=== PATIENT | female | born 1975 | race Caucasian/White ===

== ENCOUNTER → 2023-01-12 14:30 | Outpatient (CLI) | payer MEDICARE, SELFPAY ==
--- NOTE | 2023-01-12 14:32 | DI.RAD.S_ITS ---
PROCEDURE: XR KUB INDICATIONS: Kidney stones TECHNIQUE: One view of the abdomen acquired. COMPARISON: [facility], [facility], US PELVIC COMPLETE, 12/30/2020, 14:33. FINDINGS: Surgical changes and devices: None. Bowel: Bowel gas pattern is normal. Soft tissues: A 1.4 x 1.9 cm calcific density in the left mid abdomen projecting to the area of L4 the left transverse process, just below the inferior pole of the left kidney. Visualized solid organ contours appear normal in size. Bones: No suspicious bony lesions. IMPRESSION: 1. A 1.4 x 1.8 cm calcific density in left abdomen, suspicious for a proximal left ureteral stone. Recommend renal ultrasound or CT for further evaluation. Dictated by: Sophia Alexandre M.D. on 01/12/2023 at 19:11 Approved by: Sophia Alexandre M.D. on 01/12/2023 at 19:16
== END ==
PROVIDERS: Referring Provider Urology; Visit Provider Urology
DX: N20.0 Calculus of kidney (principal); N13.30 Unspecified hydronephrosis; Z87.442 Personal history of urinary calculi; Z85.42 Personal history of malignant neoplasm of other parts of uterus
CPT/HCPCS: 74018; 81002; 99213

== ENCOUNTER 2023-01-31 06:39 | Day surgery (SDC) | payer MEDICARE, SELFPAY ==
[2023-01-27 10:01] VITALS: BMI 23.7
[2023-01-31 06:56] VITALS: BP 161/89; PULSE 82; RESP 19; TEMP 36.6; O2SAT 100; BMI 23.7
[2023-01-31] MEDS: LACTATED RINGERS 1,000 ML 21 ML IV (07:13)
--- NOTE | 2023-01-31 07:35 | PM.PREOP ---
Pre-operative Note COVID-19 COVID-19 status: Not tested Criteria for continued procedure: Delay expected to result in less-positive ultimate med/surg outcome and Non-surgical alternatives not available or appropriate per current SOC Interval Note History & Physical reviewed/Exam performed by Physician: Yes Changes to H&P: No
[2023-01-31] MEDS: CEFAZOLIN 2 GM/100 ML PREMIX 100 ML IV (07:54)
--- NOTE | 2023-01-31 08:04 | SUR.OPER ---
Addendum entered by Ethel Proctor R.N. 01/31/23 08:25: For ESWL, patient placed into supine position with padded wedge underneath knees. Head on pillow, arms padded with gel pads and tucked at sides. Original Note: Lithotomy on ESWL table, head on pillow, arms padded with gel pads and tucked at sides. Legs secured in padded black ESWL stirrups.
[2023-01-31 09:02] VITALS: BP 142/81; PULSE 77; RESP 14; TEMP 36.1; O2SAT 98
--- NOTE | 2023-01-31 09:03 | P.OP_ITS ---
Procedure & Clinicians Procedure: Left extracorporeal shockwave lithotripsy and cystoscopy with left ureteral stent placement. Same procedure as scheduled: Yes Indications: This 47-year-old female was found to have a large calculus in the left renal pelvis. She presents this time for treatment. She also had hydronephrosis and given the size of the stone against stent will be placed as noted above. Surgeon: Naren Walker Click Yes if Unassisted: Yes Anesthesia Type: General Operative Notes Findings: Findings: At cystoscopy external genitalia were normal the vaginal vault was well estrogenized the urethral meatus was normal urethra is normal along its length with normal mucosa. The right and left ureteral orifice were in normal position with clear efflux. The mucosa of the bladder was normal. The trigone was well estrogenized. The stone was in the UPJ/renal pelvis. And received a total of 2100 shocks at level 8 resulting in what appeared to be excellent fragmentation. A 7 Slovenian by multi length stent was left in place without a string. Closure Type: not applicable Specimen(s): none sent Prosthetic devices, grafts, tissues, transplants, or devices: Seven Slovenian by multi length stent left in the left collecting system without a string. Blood products transfused: none Procedure in detail: Procedure in detail: After informed consent was obtained, the patient was identified and brought to the operating room where she was placed in a supine position on the Lithotripter. Patient had anesthesia induced and maintained. Showing an adequate level of anesthesia the patient was transitioned to the lithotomy position where she was prepped, draped, prepared for Transurethral procedure. Ensuring an adequate level of anesthesia and after prepping, draping, time-out cystoscope was passed through the urethra into the bladder for cystoscopy was performed. The left ureteral orifice was identified and a guidewire passed up to the level of the stone. Did not want to go past the stone so Sloan catheter was inserted and again an attempt was made to pass the stone this met with resistance. Therefore a 0.035 glidewire was passed through the Parker catheter and manipulated up and pass the stone the Parker was then passed alongside the stone into the renal pelvis. The Glidewire was removed and there was efflux of clear yellow urine the hybrid guidewire was then passed up through the Parker it left in place in the renal pelvis having the Sloan catheter removed. The stent was then passed in a coaxial fashion over the wire positioned in the renal pelvis under fluoroscopic visualization in the bladder under direct vision. The nylon harness was removed stent was left in good position the bladder was drained the scope was removed. The patient was returned to the supine position on the Lithotripter and the stone positioned at if 1 via the imaging system shockwave delivered at level 8 for a total of 2100 shocks. There was periodic reimaging and re localization of the stone and its fragments to ensure maximal energy delivered to the stone and fragmentation. At 9:00 p.m. shocks the shockwave head was rotated out fluoroscopy performed and the stone did appear to be well well fragmented. At this point the patient was awakened taken to the postanesthesia care unit having tolerated the procedure well patient will be discharged to home after recovery straining her urine saving any fragments to follow up my office in approximately 10-14 days. She will bring any fragments that she has collected to follow-up. There were no complications. Complications: none Post-operative Condition: stable Disposition: PACU Plan for aftercare: Patient to be discharged to home straining her urine saving any fragments.
[2023-01-31 09:07] VITALS: BP 136/89; PULSE 81; RESP 12; O2SAT 99
[2023-01-31 09:13] VITALS: BP 136/76; PULSE 83; RESP 16; TEMP 36.4; O2SAT 98
[2023-01-31] MEDS: SCOPOLAMINE 1 PATCH TOP (09:24)
[2023-01-31] MEDS: PHENAZOPYRIDINE 100 MG TABLET 200 MG PO (09:25)
[2023-01-31] MEDS: OXYBUTYNIN 5 MG TABLET PO (09:25)
[2023-01-31 09:28] VITALS: BP 140/85; PULSE 73; RESP 16; TEMP 36.4; O2SAT 98
== END 2023-01-31 09:54 | disposition home or self-care (01) ==
PROVIDERS: Referring Provider Urology; Visit Provider Urology
PROC: (CPT 50590; principal; 2023-01-31 07:45)
DX: N20.0 Calculus of kidney (principal)
CPT/HCPCS: 50590; 52332; J0690; J1100; J2250; J2405; J2704; J3010

== ENCOUNTER → 2023-02-09 12:44 | Outpatient (CLI) | payer MEDICARE, SELFPAY ==
--- NOTE | 2023-02-09 12:47 | DI.RAD.S_ITS ---
PROCEDURE: XR KUB INDICATIONS: Follow-up lithotripsy TECHNIQUE: One view of the abdomen acquired. COMPARISON: WLeft in place. double-J stent [facility], RG, CT ABDOMEN/PELVIS WITH CONTRAS. T, 08/15/2022, 20:11[facility], CR, XR KUB, 01/12/2023, 14:43. FINDINGS: Surgical changes and devices: Interval placement of a left double-J stent Bowel: Bowel gas pattern is normal. Soft tissues: No suspicious abdominal calcifications. Visualized solid organ contours appear normal in size. Most of the left renal pelvic stone has been removed. There is small residual stone fragment remaining. Bones: No suspicious bony lesions. IMPRESSION: Significant interval decrease in the size of the left renal pelvic stone. Left double-J ureteral stent in place. Dictated by: Ion Grimm M.D. on 02/09/2023 at 14:12 Approved by: Ion Grimm M.D. on 02/09/2023 at 14:14
== END ==
PROVIDERS: Referring Provider Urology; Visit Provider Urology
DX: N20.0 Calculus of kidney (principal); Z96.0 Presence of urogenital implants
CPT/HCPCS: 74018

== ENCOUNTER → 2023-02-10 11:48 | Outpatient (CLI) | payer MEDICARE, SELFPAY ==
[2023-02-15 18:39] LABS: Ca oxalate dihydrate 10 % (.); Ca oxalate monohydr 80 % (.); Hydroxyapatite 10 % (.); Size 2x2 mm (.)
== END ==
PROVIDERS: Visit Provider Urology
DX: N13.30 Unspecified hydronephrosis (principal); N20.0 Calculus of kidney
CPT/HCPCS: 82365

== ENCOUNTER → 2023-02-21 14:03 | Outpatient (CLI) | payer MEDICARE, SELFPAY ==
--- NOTE | 2023-02-21 14:06 | DI.RAD.S_ITS ---
PROCEDURE: XR KUB INDICATIONS: Follow-up kidney stones TECHNIQUE: One view of the abdomen acquired. COMPARISON: [facility], CR, XR KUB, 02/09/2023, 12:43. FINDINGS: Surgical changes and devices: Stable left ureteral stent. Bowel: Bowel gas pattern is normal. Soft tissues: Small 4 millimeter calcific density noted adjacent to the lateral and distal margin of the left ureteral stent concerning for residual stone. Visualized solid organ contours appear normal in size. Bones: No suspicious bony lesions. IMPRESSION: Possible 4 millimeter stone in the distal left ureter. Dictated by: Honey Reyes MD, PhD on 02/21/2023 at 15:03 Approved by: Honey Reyes MD, PhD on 02/21/2023 at 15:05
== END ==
PROVIDERS: Referring Provider Urology; Visit Provider Urology
DX: N20.0 Calculus of kidney (principal); Z96.0 Presence of urogenital implants
CPT/HCPCS: 74018

== ENCOUNTER → 2023-03-01 11:14 | Outpatient (CLI) | payer MEDICARE, SELFPAY ==
[2023-03-06 22:39] LABS: Ca oxalate dihydrate 30 % (.); Ca oxalate monohydr 65 % (.); Hydroxyapatite 5 % (.); Size 3x3 mm (.)
== END ==
PROVIDERS: Visit Provider Urology
DX: N13.30 Unspecified hydronephrosis (principal); N20.0 Calculus of kidney; Z98.890 Other specified postprocedural states; Z87.442 Personal history of urinary calculi; Z96.0 Presence of urogenital implants
CPT/HCPCS: 81002; 82365; 87086; 99213

== ENCOUNTER → 2023-03-04 10:35 | Outpatient (CLI) | payer MEDICARE, SELFPAY ==
--- NOTE | 2023-03-04 10:36 | DI.CT.S_ITS ---
PROCEDURE: CT ABDOMEN WO CON INDICATIONS: Kidney stone TECHNIQUE: After the administration of oral contrast, 5 mm thick sections acquired from the diaphragms to the iliac crests. 5 mm coronal and sagittal reformats were then performed. For radiation dose reduction, the following was used: automated exposure control, adjustment of mA and/or kV according to patient size. COMPARISON: [facility], CR, XR KUB, 02/09/2023, 12:43. [facility], RG, CT ABDOMEN/PELVIS WITH CONTRAST, 08/15/2022, 20:11. [facility], CR, XR KUB, 02/21/2023, 14:12. FINDINGS: Image quality: Excellent. Lung bases: Lung bases are clear. Heart size is normal. Solid organs: Liver is normal in size. Gallbladder is normal . Pancreas is normal in contours. Spleen is normal in size. No adrenal nodules. A 6 millimeter stone is present medially adjacent to the renal pigtail of the ureteral stent. This appears similar to the prior x-ray. The stone described on the KUB possibly in the distal ureter lies adjacent to but not within the ureter and is a pelvic phlebolith. Peritoneum and bowel: Bowel loops demonstrate normal wall thickness and caliber. No free fluid or air. Nodes and vessels: No retroperitoneal or mesenteric adenopathy by size criteria. Aorta and inferior vena cava are normal in size. Bones: No suspicious bony lesions. No vertebral body compression fractures. Miscellaneous: No ventral hernias. IMPRESSION: 1. Possible stone described on are KUB is a pelvic phlebolith. 2. Residual 6 millimeter stone in the kidney adjacent to the renal portion of the ureteral stent. Dictated by: Shubham Holden M.D. on 03/04/2023 at 21:42 Approved by: Shubham Holden M.D. on 03/04/2023 at 21:52
== END ==
PROVIDERS: Referring Provider Urology; Visit Provider Urology
DX: N20.0 Calculus of kidney (principal); Z96.0 Presence of urogenital implants
CPT/HCPCS: 74150

== ENCOUNTER → 2023-03-21 18:17 | Outpatient (CLI) | payer MEDICARE, SELFPAY ==
--- NOTE | 2023-03-21 18:21 | DI.RAD.S_ITS ---
PROCEDURE: XR KUB INDICATIONS: Follow-up kidney stone TECHNIQUE: One view of the abdomen acquired. COMPARISON: [facility], CT, CT ABDOMEN WO CON, 03/04/2023, 10:56. [facility], CR, XR KUB, 02/21/2023, 14:12. [facility], CR, XR KUB, 02/09/2023, 12:43. FINDINGS: Surgical changes and devices: Left ureteral stent in place. Bowel: Bowel gas pattern is normal. Soft tissues: Again seen calcification adjacent to the proximal portion of the left ureteral stent, consistent with the stone seen on prior CT and similar in size. Calcifications projecting over the pelvis are favored to represent phleboliths. Visualized solid organ contours appear normal in size. Bones: No suspicious bony lesions. IMPRESSION: Left ureteral stent in place with stone seen at the proximal portion near the expected location of the renal pelvis, similar in appearance compared to prior CT. Dictated by: Silas Gomez M.D. on 03/22/2023 at 8:23 Approved by: Silas Gomez M.D. on 03/22/2023 at 8:26
== END ==
PROVIDERS: Referring Provider Urology; Visit Provider Urology
DX: N20.0 Calculus of kidney (principal); Z96.0 Presence of urogenital implants
CPT/HCPCS: 74018

== ENCOUNTER → 2023-03-23 08:10 | Outpatient (CLI) | payer MEDICARE, SELFPAY | PROVIDERS: Visit Provider Urology | DX: N13.30 Unspecified hydronephrosis (principal); N20.0 Calculus of kidney; R31.9 Hematuria, unspecified; R30.0 Dysuria; Z96.0 Presence of urogenital implants | CPT/HCPCS: 81002; 87086; 99214 ==

== ENCOUNTER 2023-04-04 06:25 | Day surgery (SDC) | payer MEDICARE, SELFPAY ==
[2023-03-29 09:48] VITALS: BMI 24.3
[2023-04-04] VITALS (7 sets, daily range): BP systolic 113–153; BP diastolic 72–109; PULSE 64–86; RESP 12–16; TEMP 35.8–36.1; O2SAT 95–100; BMI 24.3
[2023-04-04] MEDS: SCOPOLAMINE 1 PATCH TOP (07:29)
--- NOTE | 2023-04-04 07:32 | PM.PREOP ---
Pre-operative Note COVID-19 COVID-19 status: Not tested Criteria for continued procedure: Non-surgical alternatives not available or appropriate per current SOC Interval Note History & Physical reviewed/Exam performed by Physician: Yes Changes to H&P: No
[2023-04-04] MEDS: CEFAZOLIN 2 GM/100 ML PREMIX 100 ML IV (07:55)
--- NOTE | 2023-04-04 08:01 | SUR.OPER ---
Supine on ESWL table, head on pillow, arms padded with gel pads, legs uncrossed.
--- NOTE | 2023-04-04 08:35 | PM.OP.1 ---
Procedure & Clinicians Procedure: Left extracorporeal shockwave lithotripsy Same procedure as scheduled: Yes Indications: This 47-year-old female presented with a large stone which was treated by extracorporeal shockwave lithotripsy. She passed 90% of the fragments and came down to approximately 6-7 mm core which has failed to pass and does not appear broken up so she presents this time for treatment of this residual stone by extracorporeal shockwave lithotripsy. This is on the patient's left side Surgeon: Naren Walker Click Yes if Unassisted: Yes Anesthesia Type: General Operative Notes Findings: Stone is noted in the renal pelvis. It received 3000 shocks at level 7 and did appear to change. Getting smaller and somewhat more spread out. No other abnormality or notable finding was present. Closure Type: not applicable Specimen(s): none sent Estimated Blood Loss (mL): 0 Blood products transfused: none Procedure in detail: Procedure in detail: After informed consent was obtained, the patient was identified and brought to the operating room where she was placed in the supine position on the Lithotripter. She then had anesthesia induced and maintained. Ensuring an adequate level of anesthesia and after time-out the stone was targeted via the imaging system and once appropriately targeted received shock waves up to level 7. There was periodic reimaging and re localization to sure maximal energy delivery to the stone. Patient received 3000 shocks. At 3000 shocks the shockwave head was rotated out and fluoroscopy was performed. This revealed the stone to have changed and smudged out and did appear fragmented. At this point the patient was awakened having tolerated the procedure well to be transferred to the post anesthesia care unit for recovery. There were no complications Complications: none Post-operative Condition: stable Disposition: PACU Plan for aftercare: Patient to follow up in my office in 10-14 days patient is to strain her urine and save any fragments and bring to follow-up. Imaging will be determined at that time to ascertain progress of passage of the stone and stone fragments.
[2023-04-04] MEDS: ACETAMINOPHEN 325 MG TABLET 650 MG PO (08:59)
[2023-04-04] MEDS: ONDANSETRON 4 MG/2 ML INJ IV (08:59)
[2023-04-04] MEDS: LACTATED RINGERS 1,000 ML 21 ML IV ×2 (09:21→09:22)
--- NOTE | 2023-04-04 09:24 | SUR.PHASEII ---
Patient continues to have nausea but no emesis. Notified anesthesiologist of continued nausea. Verbal orders for additional liter of Lactated ringers and Reglan 10 mg IV.
[2023-04-04] MEDS: METOCLOPRAMIDE 10 MG/2 ML INJ IV (09:30)
--- NOTE | 2023-04-04 09:47 | SUR.PHASEII ---
Patient ambulatory to bathroom with no nausea; states she is feeling Much better. Discharged home in stable condition with father.
== END 2023-04-04 09:47 | disposition home or self-care (01) ==
PROVIDERS: Referring Provider Urology; Visit Provider Urology
PROC: (CPT 50590; principal; 2023-04-04 07:45)
DX: N20.0 Calculus of kidney (principal)
CPT/HCPCS: 50590; J0690; J1100; J2405; J2704; J2765

== ENCOUNTER 2023-04-14 07:48 | Inpatient (IN) | payer MEDICARE, SELFPAY ==
[2023-04-14] VITALS (70 sets, daily range): BP systolic 96–185; BP diastolic 55–119; PULSE 49–123; RESP 10–42; TEMP 36.5–37.2; O2SAT 91–100; BMI 24.7; BMI 26.9
--- NOTE | 2023-04-14 | PATH_ITS ---
[facility] Accession Number: [id number] No. of containers..01 Tissue . 01 Material submitted: . ovary - LEFT OVARY . 01 Diagnosis: A. Left Ovary, Oophorectomy: Ovarian parenchyma in association with hemorrhagic corpus luteal cyst(s) and extensive hemorrhage/infarct-type necrosis, consistent with torsion. No evidence of borderline tumor or malignancy. MRV 04/27/2023 1233 Local . 01 Electronically signed: . Lashae Hernandez MD, Pathologist NPI- [id number] . 01 Gross description: . The specimen is received in formalin labeled with the patient's name, , and left ovary consists of a dark brown, nodular, roughened presumed ovary weighing 30 grams and measuring 5.7 x 5.2 x 2.4 cm. The external surface is inked blue and sectioning reveals diffusely hemorrhagic ovarian parenchyma with several pink to red structures consistent with possible luteal cysts measuring up to 1.8 cm in greatest dimension. No additional lesions are identified. [employer] sections are submitted in cassettes [id number]. ([id number]) /MRV 04/27/2023 1233 Local . 01 Pathologist provided ICD-10: N83.12 . 01 CPT . 525726 Specimen Comment: A courtesy copy of this report has been sent to [phone] Performed at: 01 [facility] [address] [place] [address], [place], [place] [id number] MD Tree Unger MD Phone: [phone]
--- NOTE | 2023-04-14 07:58 | DI.CT.S_ITS ---
PROCEDURE: CT KIDNEY URETER BLADDER (KUB) INDICATIONS: left abd/flank pain, ureteral stent 04/04 lithotripsy TECHNIQUE: Axial sections were acquired from the lung bases to the pubic symphysis. Coronal and sagittal reformats were performed. For radiation dose reduction, the following was used: automated exposure control, adjustment of mA and/or kV according to patient size. COMPARISON: [facility], CT, CT ABDOMEN PELVIS WO CON, 03/04/2023, 10:56. FINDINGS: Image quality: Excellent. Lung bases: Trace right pleural effusion.. Heart: No significant findings. URINARY: Right Kidney: No stones or hydronephrosis. Right Ureter: No hydroureter. Left Kidney: Stable severe hydronephrosis. Nephroureteral stent terminates in the extrarenal pelvis and bladder. Left Ureter: Stable severe hydroureter Bladder: Normal wall thickness. No stones. ABDOMEN: Liver: Unremarkable. Gallbladder: Unremarkable. Biliary ducts: Unremarkable. Pancreas: Unremarkable. Spleen: Unremarkable. Adrenal Glands: Unremarkable. Stomach and Bowel: Stomach, small bowel loops, and colon are unremarkable. Peritoneum: Moderate amount of free fluid in the pelvis, greater than expected for physiologic. Ventral Wall: Small umbilical hernia containing. Abdominal Nodes: No enlarged retroperitoneal or mesenteric lymph nodes. Vessels: Aorta and inferior vena cava are normal in size. PELVIS: Pelvic Organs: Unremarkable. Pelvic Nodes: Unremarkable. Miscellaneous: No inguinal hernias are seen. Bones: Unremarkable. IMPRESSION: Moderate amount of free fluid in the pelvis of unclear etiology. This has increased compared with prior. Ureter injury not entirely excluded, although not likely as the fluid is within the peritoneum and not retroperitoneum. Ruptured ovarian cyst is also consideration. Appropriately positioned nephroureteral stent, with persistent severe hydronephrosis and hydroureter. Dictated by: Migue Moody M.D. on 04/14/2023 at 9:26 Approved by: Migue Moody M.D. on 04/14/2023 at 9:32
--- NOTE | 2023-04-14 08:00 | ED_ITS ---
HPI - Abdominal Pain General Chief Complaint: Abdominal Pain Stated Complaint: post op stent /V/ pain/bleeding Time Seen by Provider: 04/14/23 07:58 Source: patient, RN notes reviewed and old records reviewed Mode of arrival: Wheelchair Limitations: no limitations History of Present Illness HPI narrative: This is a 47-year-old female with history of recent ureteral stent placed in February of 2023 and follow-up lithotripsy on 04/04/2023, patient has had prior kidney stones, chronic back pain, fibromyalgia, endometriosis who presents with sudden increase of left flank and lower quadrant abdominal pain that woke her up from sleep this morning. Patient states she has not had any objective fevers but has been diaphoretic intermittently. Patient states pain is much more intense than what she normally gets with her kidney stones. She is had nausea and vomiting. She states she is had intermittent diarrhea and constipation but is stooling regularly. Denies any black or bloody stools. She says dysuria, urgency frequency and a sense of incomplete emptying since she had the stent placed in February. Patient denies vaginal bleeding or discharge. She states she tried Tylenol at home for pain. Patient states no other daily medications. No prior surgeries otherwise. She states she does not handle narcotics well in terms allergies and has a reported allergy to sulfa. Denies tobacco, alcohol or illicit. She is seen Dr. Walker as her urologist. Related Data Previous Rx's Medication Instructions Recorded lisinopril 20 mg tablet 20 mg PO DAILY #10 tabs 04/18/23 naproxen 250 mg tablet 500 mg PO BIDWM #20 tabs 04/18/23 vitamin 1 tab PO DAILY #30 tabs 04/18/23 no.76-iron,carbonyl 29 mg iron-folic acid 1 mg tablet (Prenatabs Rx) fentanyl 25 mcg/hr transdermal 1 patch transdermal Q72H #1 ea 04/19/23 patch hydromorphone 2 mg tablet 2 mg PO Q4HR PRN Pain, Severe 04/19/23 (7-10) #20 tabs ondansetron 4 mg disintegrating 4 mg PO BID-TID PRN nausea and 04/19/23 tablet vomiting #10 tabs scopolamine base 1 mg over 3 days 1 patch transdermal Q3D PRN nausea 04/19/23 transdermal patch and vomiting #4 ea tamsulosin 0.4 mg capsule 0.8 mg PO DAILY #60 caps 04/19/23 Allergies Allergy/AdvReac Type Severity Reaction Status Date / Time Sulfa (Sulfonamide Allergy Intermediate Rash Verified 04/19/23 08:31 Antibiotics) hydrocodone [From Vicodin] Allergy Unknown Verified 04/19/23 08:31 Review of Systems Review of Systems ROS Unobtainable: All systems reviewed & are unremarkable except as noted in HPI and below Patient History Medical History (Updated 04/19/23 @ 08:49 by Naren Walker MD) Anxiety and depression (~1997) Chronic back pain (~2000) Fibromyalgia (~2011) History of depression History of kidney stones Hx of cancer of uterus Hx of migraine headaches Hx of nephrolithotomy with removal of calculi Hx of neurological disease Hydronephrosis, left Kidney stones (~2008) Left renal stone Menorrhagia (~2011) Migraine headache without aura (~1998) Painful menstrual periods (~2011) Recurrent sinusitis Restless leg syndrome (~2011) S/P extracorporeal shock wave therapy (01/31/23) Urinary retention Surgical History (Updated 04/19/23 @ 08:53 by Naren Walker MD) Anesthesia History of lithotripsy [place] teeth extracted Family History Father Prediabetes Hypertension Hyperlipidemia Grandfather Cancer Hypertension Hyperlipidemia Stroke Grandmother Cancer Hyperlipidemia Hypertension Stroke Grandmother Bladder cancer Breast cancer Social History marital status: number of children: 2 household members: children Smoking Status: Never smoker alcohol intake: never caffeine: No Type(s) of exercise: walking frequency: daily duration: > 90 minutes/day Smoking Status: Never smoker Substance Use Type: does not use Exam Narrative Exam Narrative: GENERAL: Alert and oriented x three, female in moderate distress. HEENT: Head normocephalic, atraumatic, EOMI, pupils reactive, face symmetric, moist mucous membranes NECK: Supple, full range of motion CARDIOVASCULAR: Regular rate and rhythm without murmurs, rubs or gallops. RESPIRATORY: Breath sounds equal bilaterally, no wheezes rales or rhonchi. ABDOMEN: Soft, generalized tenderness greatest in the left. Normoactive bowel sounds all 4 quadrants. No guarding or rebound, rigidity, no mass : No CVA tenderness EXTREMITIES: Normal range of motion, no clubbing or edema. Neurovascularly intact NEUROLOGICAL: Cranial nerves II through XII grossly intact. Moving all extremities SKIN: Warm, dry, no petechiae, no rashes or lesions. Initial Vital Signs Initial Vital Signs: Vital Signs Blood Pressure 169/112 H 04/14/23 07:55 Course Orders Ordered: Discontinued Medications Acetaminophen (Acetaminophen 325 Mg Tablet) 650 mg PO Q6H PRN PRN Reason: Fever/Mild Pain (1-3) Last Admin: 04/18/23 19:47 Dose: 650 mg Documented By: Admin: 04/18/23 12:59 Dose: 650 mg Documented By: Admin: 04/18/23 05:39 Dose: 650 mg Documented By: Admin: 04/17/23 22:54 Dose: 650 mg Documented By: Admin: 04/17/23 15:48 Dose: 650 mg Documented By: DAHIANA Hydrocodone Bitart/Acetaminophen (Hydrocodone/Acet 5/325 Tablet) 1 tab PO Q4H PRN PRN Reason: Pain, Moderate (4-6) Hydrocodone Bitart/Acetaminophen (Hydrocodone/Acet 5/325 Tablet) 2 tab PO Q4H PRN PRN Reason: Pain, Severe (7-10) Celecoxib (Celecoxib 200 Mg Capsule) 200 mg PO BID SHENG Ciprofloxacin (Ciprofloxacin 250 Mg Tablet) 250 mg PO 0700,2100 SHENG Ciprofloxacin (Ciprofloxacin 250 Mg Tablet) 500 mg PO 0700,2100 SHENG Last Admin: 04/19/23 07:28 Dose: 500 mg Documented By: Admin: 04/18/23 20:00 Dose: 500 mg Documented By: Admin: 04/18/23 08:27 Dose: 500 mg Documented By: Admin: 04/17/23 20:45 Dose: 500 mg Documented By: Admin: 04/17/23 07:44 Dose: 500 mg Documented By: Admin: 04/16/23 20:40 Dose: 500 mg Documented By: THEODORA Diphenhydramine HCl (Diphenhydramine 50 Mg/Ml Vial) 25 mg IV NOW ONE Stop: 04/14/23 19:26 Last Admin: 04/14/23 19:35 Dose: 25 mg Documented By: KENYON Fentanyl (Fentanyl 25 Mcg/Patch) 25 mcg TOP NOW ONE Stop: 04/18/23 12:35 Last Admin: 04/18/23 12:58 Dose: 25 mcg Documented By: RASHIDA Fentanyl (Fentanyl 25 Mcg/Patch) 25 mcg TOP NOW ONE Stop: 04/19/23 05:52 Last Admin: 04/19/23 08:23 Dose: Not Given Documented By: RASHIDA Hydromorphone HCl (Hydromorphone 1 Mg Inj) 1 mg IV NOW ONE Stop: 04/14/23 09:13 Last Admin: 04/14/23 09:20 Dose: 1 mg Documented By: Hydromorphone HCl (Hydromorphone 1 Mg Inj) 1 mg IV NOW ONE Stop: 04/14/23 11:10 Last Admin: 04/14/23 11:27 Dose: 1 mg Documented By: Hydromorphone HCl (Hydromorphone 1 Mg Inj) 1 mg IV NOW ONE Stop: 04/14/23 14:35 Last Admin: 04/14/23 14:42 Dose: 1 mg Documented By: Hydromorphone HCl (Hydromorphone 0.5 Mg Inj) 0.5 mg IV Q3H PRN PRN Reason: Pain, Moderate (4-6) Last Admin: 04/17/23 05:57 Dose: 0.5 mg Documented By: Admin: 04/16/23 11:18 Dose: 0.5 mg Documented By: Admin: 04/15/23 22:44 Dose: 0.5 mg Documented By: Admin: 04/15/23 18:51 Dose: 0.5 mg Documented By: Admin: 04/15/23 15:05 Dose: 0.5 mg Documented By: Admin: 04/15/23 11:59 Dose: 0.5 mg Documented By: Admin: 04/15/23 09:00 Dose: 0.5 mg Documented By: Admin: 04/14/23 23:41 Dose: 0.5 mg Documented By: VIOLET Hydromorphone HCl (Hydromorphone 2 Mg Tablet) 2 mg PO Q4HR PRN PRN Reason: Pain, Severe (7-10) Last Admin: 04/19/23 07:27 Dose: 2 mg Documented By: Admin: 04/19/23 04:55 Dose: 2 mg Documented By: Admin: 04/19/23 00:51 Dose: 2 mg Documented By: Admin: 04/18/23 20:55 Dose: 2 mg Documented By: Admin: 04/18/23 10:43 Dose: 2 mg Documented By: Admin: 04/18/23 05:38 Dose: 2 mg Documented By: Admin: 04/17/23 22:54 Dose: 2 mg Documented By: Admin: 04/17/23 17:45 Dose: 2 mg Documented By: Admin: 04/17/23 14:05 Dose: 2 mg Documented By: Admin: 04/16/23 08:40 Dose: 2 mg Documented By: DAHIANA Hydromorphone HCl (Hydromorphone 1 Mg Inj) 1 mg IV Q2H PRN PRN Reason: Pain, Moderate (4-6) Last Admin: 04/18/23 19:47 Dose: 1 mg Documented By: Admin: 04/17/23 20:45 Dose: 1 mg Documented By: Admin: 04/17/23 08:59 Dose: 1 mg Documented By: Admin: 04/16/23 19:56 Dose: 1 mg Documented By: Admin: 04/15/23 01:43 Dose: 1 mg Documented By: VIOLET Sodium Chloride (Normal Saline 0.9%) 1,000 mls @ 1,000 mls/hr IV BOLUS ONE Stop: 04/14/23 08:57 Last Infusion: 04/14/23 09:05 Dose: 0 mls/hr Documented By: Admin: 04/14/23 08:11 Dose: 1,000 mls/hr Documented By: ST Lidocaine HCl 5 ml/ Sodium (Chloride) 55 mls @ 330 mls/hr IV NOW ONE Stop: 04/14/23 08:35 Last Infusion: 04/14/23 09:05 Dose: 0 mls/hr Documented By: Admin: 04/14/23 08:38 Dose: 330 mls/hr Documented By: ST Sodium Chloride (Normal Saline 0.9%) 1,000 mls @ 1,000 mls/hr IV BOLUS ONE Stop: 04/14/23 10:38 Last Infusion: 04/14/23 16:28 Dose: 0 mls/hr Documented By: Admin: 04/14/23 10:17 Dose: 1,000 mls/hr Documented By: ST Ceftriaxone Sodium 2,000 mg/ (Sodium Chloride) 100 mls @ 200 mls/hr IV NOW ONE Stop: 04/14/23 10:44 Last Infusion: 04/14/23 12:26 Dose: 0 mls/hr Documented By: Admin: 04/14/23 11:27 Dose: 200 mls/hr Documented By: Sodium Chloride (Normal Saline 0.9%) 1,000 mls @ 1,000 mls/hr IV BOLUS ONE Stop: 04/14/23 18:14 Last Infusion: 04/14/23 18:45 Dose: 0 mls/hr Documented By: Admin: 04/14/23 17:37 Dose: 1,000 mls/hr Documented By: Sodium Chloride (Normal Saline 0.9%) 1,000 mls @ 1,000 mls/hr IV BOLUS ONE Stop: 04/14/23 18:14 Last Admin: 04/14/23 19:02 Dose: 1,000 mls/hr Documented By: Tranexamic Acid 1,000 mg/ (Sodium Chloride) 100 mls @ 200 mls/hr IV NOW ONE Stop: 04/14/23 19:58 Last Infusion: 04/14/23 20:39 Dose: 0 mls/hr Documented By: Admin: 04/14/23 19:53 Dose: 200 mls/hr Documented By: KH Cefazolin Sodium/Dextrose (Ancef) 100 mls @ 200 mls/hr IV NOW ONE Stop: 04/14/23 22:12 Last Infusion: 04/14/23 21:40 Dose: 0 mls/hr Documented By: Admin: 04/14/23 21:29 Dose: 200 mls/hr Documented By: EB Sodium Chloride (Normal Saline 0.9%) 1,000 mls @ 100 mls/hr IV CONT SHENG Last Admin: 04/16/23 06:16 Dose: 100 mls/hr Documented By: Infusion: 04/15/23 20:35 Dose: 100 mls/hr Documented By: Admin: 04/15/23 10:35 Dose: 100 mls/hr Documented By: Infusion: 04/15/23 10:13 Dose: 100 mls/hr Documented By: Infusion: 04/15/23 06:40 Dose: 100 mls/hr Documented By: Infusion: 04/15/23 05:41 Dose: 0 mls/hr Documented By: Admin: 04/14/23 23:14 Dose: 100 mls/hr Documented By: VIOLET Ceftriaxone Sodium 1,000 mg/ (Sodium Chloride) 100 mls @ 200 mls/hr IV Q24H [facility] Last Infusion: 04/15/23 23:10 Dose: 0 mls/hr Documented By: Admin: 04/15/23 22:35 Dose: 200 mls/hr Documented By: Infusion: 04/14/23 23:56 Dose: 0 mls/hr Documented By: Admin: 04/14/23 23:15 Dose: 200 mls/hr Documented By: VIOLET Sodium Chloride (Normal Saline 0.9%) 1,000 mls @ 1,000 mls/hr IV BOLUS ONE Stop: 04/15/23 06:34 Last Admin: 04/15/23 05:41 Dose: 1,000 mls/hr Documented By: VIOLET Ketorolac Tromethamine (Ketorolac 30 Mg/Ml Vial) 15 mg IV NOW ONE Stop: 04/14/23 07:59 Last Admin: 04/14/23 08:10 Dose: 15 mg Documented By: Ketorolac Tromethamine (Ketorolac 30 Mg/Ml Vial) 15 mg IV Q6H SHENG Stop: 04/19/23 17:17 Last Admin: 04/14/23 17:36 Dose: 15 mg Documented By: ST Ketorolac Tromethamine (Ketorolac 30 Mg/Ml Vial) 15 mg IV Q6H SHENG Stop: 04/20/23 10:13 Last Admin: 04/18/23 05:38 Dose: 15 mg Documented By: Admin: 04/17/23 20:45 Dose: 15 mg Documented By: Admin: 04/17/23 15:16 Dose: 15 mg Documented By: Admin: 04/17/23 11:18 Dose: Not Given Documented By: Admin: 04/17/23 04:50 Dose: 15 mg Documented By: Admin: 04/16/23 21:58 Dose: 15 mg Documented By: Admin: 04/16/23 16:43 Dose: 15 mg Documented By: Admin: 04/16/23 10:11 Dose: 15 mg Documented By: Admin: 04/16/23 04:22 Dose: 15 mg Documented By: Admin: 04/15/23 22:35 Dose: 15 mg Documented By: Admin: 04/15/23 16:26 Dose: 15 mg Documented By: Admin: 04/15/23 10:31 Dose: 15 mg Documented By: WILLIAM Lisinopril (Lisinopril 20 Mg Tablet) 20 mg PO NOW ONE Stop: 04/18/23 00:27 Last Admin: 04/18/23 00:39 Dose: 20 mg Documented By: Lisinopril (Lisinopril 20 Mg Tablet) 20 mg PO DAILY [facility] Last Admin: 04/19/23 07:27 Dose: 20 mg Documented By: Admin: 04/18/23 10:33 Dose: 20 mg Documented By: RASHIDA Methylprednisolone (Methylprednisolone 125 Mg/2 Ml Vial) 125 mg IV NOW ONE Stop: 04/14/23 19:26 Last Admin: 04/14/23 19:34 Dose: 125 mg Documented By: KENYON Metoprolol Tartrate (Metoprolol Tartrate 5 Mg/5 Ml Inj) 5 mg IV Q6H PRN PRN Reason: Blood Pressure - High Last Admin: 04/18/23 08:27 Dose: 5 mg Documented By: Admin: 04/17/23 22:55 Dose: 5 mg Documented By: Morphine Sulfate (Morphine 4 Mg/Ml Inj) 4 mg IV NOW ONE Stop: 04/14/23 08:35 Last Admin: 04/14/23 08:39 Dose: 4 mg Documented By: Morphine Sulfate (Morphine 4 Mg/Ml Inj) 3 mg IV Q4HR PRN PRN Reason: Pain, Severe (7-10) Last Admin: 04/14/23 23:11 Dose: 3 mg Documented By: VIOLET Naloxone HCl (Naloxone 0.4 Mg/Ml Vial) 0.2 mg IV Q2MIN PRN PRN Reason: Opiate Reversal Naproxen (Naproxen 250 Mg Tablet) 500 mg PO BIDWM [facility] Last Admin: 04/19/23 07:27 Dose: 500 mg Documented By: Admin: 04/18/23 16:59 Dose: 500 mg Documented By: RASHIDA Ondansetron HCl (Ondansetron 4 Mg/2 Ml Inj) 4 mg IV NOW ONE Stop: 04/14/23 07:59 Last Admin: 04/14/23 08:10 Dose: 4 mg Documented By: Ondansetron HCl (Ondansetron 4 Mg/2 Ml Inj) 4 mg IV NOW ONE Stop: 04/14/23 14:49 Last Admin: 04/14/23 14:54 Dose: 4 mg Documented By: Ondansetron HCl (Ondansetron 4 Mg/2 Ml Inj) 4 mg IV Q6HR PRN PRN Reason: Nausea And Vomiting Last Admin: 04/18/23 20:55 Dose: 4 mg Documented By: Admin: 04/18/23 05:39 Dose: 4 mg Documented By: Admin: 04/17/23 22:55 Dose: 4 mg Documented By: Admin: 04/16/23 19:56 Dose: 4 mg Documented By: Admin: 04/16/23 08:42 Dose: 4 mg Documented By: Admin: 04/15/23 15:09 Dose: 4 mg Documented By: WILLIAM Pantoprazole Sodium (Pantoprazole Dr 40 Mg Tablet) 40 mg PO 0700 [facility] Last Admin: 04/19/23 07:28 Dose: 40 mg Documented By: Admin: 04/18/23 05:39 Dose: 40 mg Documented By: Admin: 04/17/23 07:44 Dose: 40 mg Documented By: Admin: 04/16/23 06:55 Dose: 40 mg Documented By: Admin: 04/15/23 07:59 Dose: 40 mg Documented By: WILLIAM Vit/Calcium/Iron/Folic Ac ( Vit,Calc/Iron/Folic 1 Tablet) 1 tab PO DAILY [facility] Last Admin: 04/19/23 07:27 Dose: 1 tab Documented By: Admin: 04/18/23 08:18 Dose: 1 tab Documented By: Admin: 04/17/23 08:58 Dose: 1 tab Documented By: Admin: 04/16/23 11:22 Dose: 1 tab Documented By: DAHIANA Scopolamine (Scopolamine 1 Patch) 1 patch TOP NOW ONE Stop: 04/14/23 22:21 Last Admin: 04/14/23 23:13 Dose: 1 patch Documented By: VIOLET Scopolamine (Scopolamine 1 Patch) 1 patch TOP NOW ONE Stop: 04/14/23 23:01 Last Admin: 04/14/23 23:22 Dose: Not Given Documented By: VIOLET Sodium Chloride (Sodium Chloride 0.9% Flush) 10 ml IV PRN PRN PRN Reason: Flush Last Admin: 04/17/23 04:50 Dose: 10 ml Documented By: THEODORA Sodium Chloride (Sodium Chloride 0.9% Flush) 10 ml IV BID SHENG Last Admin: 04/19/23 08:06 Dose: Not Given Documented By: Admin: 04/18/23 20:01 Dose: 10 ml Documented By: Admin: 04/18/23 08:18 Dose: 10 ml Documented By: Admin: 04/17/23 20:46 Dose: 10 ml Documented By: Admin: 04/17/23 09:15 Dose: 10 ml Documented By: Admin: 04/16/23 19:57 Dose: 10 ml Documented By: THEODORA Tramadol HCl (Tramadol 50 Mg Tablet) 100 mg PO QID PRN PRN Reason: Pain, Moderate (4-6) Last Admin: 04/18/23 23:32 Dose: 100 mg Documented By: Admin: 04/18/23 06:38 Dose: 100 mg Documented By: Admin: 04/17/23 17:45 Dose: 100 mg Documented By: Admin: 04/17/23 12:09 Dose: 100 mg Documented By: Admin: 04/16/23 13:16 Dose: 100 mg Documented By: DAHIANA Vital Signs Vital signs: Vital Signs - 8 hr 04/14/23 13:30 04/14/23 14:00 04/14/23 14:30 Temperature Pulse Rate 82 85 81 Respiratory Rate 13 16 10 L Blood Pressure Pulse Oximetry 98 99 100 Oxygen Delivery Method Oxygen Flow Rate 04/14/23 15:00 04/14/23 15:30 04/14/23 16:00 Temperature Pulse Rate 91 H 80 77 Respiratory Rate 20 14 12 Blood Pressure Pulse Oximetry 100 98 98 Oxygen Delivery Method Oxygen Flow Rate 04/14/23 16:30 04/14/23 17:00 04/14/23 17:07 Temperature Pulse Rate 100 H 84 Respiratory Rate 17 13 Blood Pressure 119/68 Pulse Oximetry 99 99 Oxygen Delivery Method Oxygen Flow Rate 04/14/23 17:07 04/14/23 17:30 04/14/23 17:30 Temperature Pulse Rate 103 H 96 H Respiratory Rate 23 14 Blood Pressure 105/63 Pulse Oximetry 99 100 Oxygen Delivery Method Nasal Cannula Oxygen Flow Rate 2 04/14/23 18:00 04/14/23 18:00 04/14/23 18:30 Temperature Pulse Rate 97 H Respiratory Rate 15 Blood Pressure 111/75 96/56 L Pulse Oximetry 99 Oxygen Delivery Method Oxygen Flow Rate 04/14/23 18:30 04/14/23 19:00 04/14/23 19:00 Temperature Pulse Rate 95 H 80 Respiratory Rate 16 12 Blood Pressure 106/69 Pulse Oximetry 97 95 Oxygen Delivery Method Oxygen Flow Rate 04/14/23 19:57 04/14/23 19:57 04/14/23 20:00 Temperature Pulse Rate 93 H Respiratory Rate 18 Blood Pressure 120/58 L 116/55 L Pulse Oximetry 100 Oxygen Delivery Method Oxygen Flow Rate 04/14/23 20:00 04/14/23 20:24 04/14/23 20:05 Temperature 97.7 F Pulse Rate 87 78 81 Respiratory Rate 16 16 16 Blood Pressure 116/55 L Pulse Oximetry 99 99 Oxygen Delivery Method Oxygen Flow Rate 04/14/23 20:10 04/14/23 20:15 04/14/23 20:20 Temperature Pulse Rate 83 85 84 Respiratory Rate 15 17 19 Blood Pressure Pulse Oximetry 100 99 100 Oxygen Delivery Method Oxygen Flow Rate 04/14/23 20:25 04/14/23 20:30 04/14/23 20:30 Temperature Pulse Rate 79 87 Respiratory Rate 14 16 Blood Pressure 114/59 L Pulse Oximetry 100 100 Oxygen Delivery Method Oxygen Flow Rate 04/14/23 20:35 Temperature Pulse Rate 98 H Respiratory Rate 16 Blood Pressure Pulse Oximetry 99 Oxygen Delivery Method Oxygen Flow Rate MDM - Abdominal Pain Lab Data 04/19/23 04:25 04/19/23 04:25 Labs: Lab Results 04/14/23 04/14/23 04/14/23 Range/Units 08:18 08:18 08:18 WBC 15.9 H (4.5-11.0) X10^3/uL RBC 4.81 (4.0-5.2) X10^6/uL Hgb 14.5 (12.0-16.0) g/dL Hct 42.3 (36-46) % MCV 88.0 (80-100) fL MCH 30.2 (26-34) PG MCHC 34.3 (30-36) % RDW 12.7 (11.6-14.8) % Plt Count 302 (150-400) X10^3/uL Neut % (Auto) 88.4 H (50-75) % Lymph % (Auto) 8.5 L (25-40) % [place] % (Auto) 2.4 L (3-14) % Eos % (Auto) 0.1 L (2-4) % Baso % (Auto) 0.6 (0-2) % Neut # (Auto) 03788 H (9707-7057) /uL Lymph # (Auto) 1400 (3076-6865) /uL [place] # (Auto) 400 (0-900) /uL Eos # (Auto) 0 (0-450) /uL Baso # (Auto) 100 (0-100) /uL PT (10.1-12.7) SECONDS INR (0.9-1.3) APTT (26-36) SECONDS Fibrinogen (211-428) mg/dL D-Dimer (<500) ng/ml Sodium 135 L (137-145) mmol/L Potassium 4.0 (3.4-5.1) mmol/L Chloride 103 (98-107) mmol/L Carbon Dioxide 19 L (22-32) mmol/L BUN 16 (7-17) mg/dL Creatinine 0.70 (0.52-1.04) mg/dL Estimated GFR > 60 (>60) mL/min BUN/Creatinine Ratio 22.9 H (6-22) Glucose 136 H (70-100) mg/dL Lactate (0.7-2.1) mmol/L Calcium 9.7 (8.4-10.2) mg/dL Total Bilirubin 0.6 (0.2-1.3) mg/dL AST 24 (14-36) IU/L ALT 15 (<35) IU/L Alkaline Phosphatase 83 (38-126) U/L Total Protein 7.9 (6.3-8.2) g/dL Albumin 4.7 (3.5-5.0) g/dL Globulin 3.2 (1.7-4.1) g/dL Albumin/Globulin Ratio 1.5 (1.0-2.8) Lipase 63 (23-300) U/L CA 125 Antigen (0-35) U/mL Procalcitonin (<0.5) ng/mL Serum , Qual Negative (Negative) Urine Color Urine Appearance Urine pH (4.5-8.0) Ur Specific [place] (1.000-1.035) Urine Protein (Negative) Urine Glucose (UA) (Negative) g/dL Urine Ketones (NEGATIVE) Urine Occult Blood (Negative) Urine Nitrate (Negative) Urine Bilirubin (NEGATIVE) Urine Urobilinogen (0.2) E.U./dL Ur Leukocyte Esterase (NEGATIVE) Urine RBC (0-5/HPF) Urine WBC (0-5/HPF) Ur Squamous Epith Cells (0-5/HPF) Urine Bacteria (None) Ur Culture Indicated? SARS-CoV-2 (PCR) (Negative) Blood Type Antibody Screen Crossmatch 04/14/23 04/14/23 04/14/23 Range/Units 08:18 08:18 08:18 WBC (4.5-11.0) X10^3/uL RBC (4.0-5.2) X10^6/uL Hgb (12.0-16.0) g/dL Hct (36-46) % MCV (80-100) fL MCH (26-34) PG MCHC (30-36) % RDW (11.6-14.8) % Plt Count (150-400) X10^3/uL Neut % (Auto) (50-75) % Lymph % (Auto) (25-40) % [place] % (Auto) (3-14) % Eos % (Auto) (2-4) % Baso % (Auto) (0-2) % Neut # (Auto) (9065-2141) /uL Lymph # (Auto) (5775-4672) /uL [place] # (Auto) (0-900) /uL Eos # (Auto) (0-450) /uL Baso # (Auto) (0-100) /uL PT (10.1-12.7) SECONDS INR (0.9-1.3) APTT (26-36) SECONDS Fibrinogen (211-428) mg/dL D-Dimer (<500) ng/ml Sodium (137-145) mmol/L Potassium (3.4-5.1) mmol/L Chloride (98-107) mmol/L Carbon Dioxide (22-32) mmol/L BUN (7-17) mg/dL Creatinine (0.52-1.04) mg/dL Estimated GFR (>60) mL/min BUN/Creatinine Ratio (6-22) Glucose (70-100) mg/dL Lactate 3.1 H (0.7-2.1) mmol/L Calcium (8.4-10.2) mg/dL Total Bilirubin (0.2-1.3) mg/dL AST (14-36) IU/L ALT (<35) IU/L Alkaline Phosphatase (38-126) U/L Total Protein (6.3-8.2) g/dL Albumin (3.5-5.0) g/dL Globulin (1.7-4.1) g/dL Albumin/Globulin Ratio (1.0-2.8) Lipase (23-300) U/L CA 125 Antigen 13.0 (0-35) U/mL Procalcitonin 0.04 (<0.5) ng/mL Serum , Qual (Negative) Urine Color Urine Appearance Urine pH (4.5-8.0) Ur Specific [place] (1.000-1.035) Urine Protein (Negative) Urine Glucose (UA) (Negative) g/dL Urine Ketones (NEGATIVE) Urine Occult Blood (Negative) Urine Nitrate (Negative) Urine Bilirubin (NEGATIVE) Urine Urobilinogen (0.2) E.U./dL Ur Leukocyte Esterase (NEGATIVE) Urine RBC (0-5/HPF) Urine WBC (0-5/HPF) Ur Squamous Epith Cells (0-5/HPF) Urine Bacteria (None) Ur Culture Indicated? SARS-CoV-2 (PCR) (Negative) Blood Type Antibody Screen Crossmatch 04/14/23 04/14/23 04/14/23 Range/Units 10:05 11:45 19:00 WBC 14.1 H (4.5-11.0) X10^3/uL RBC 3.19 L (4.0-5.2) X10^6/uL Hgb 9.7 L (12.0-16.0) g/dL Hct 28.8 L (36-46) % MCV 90.3 (80-100) fL MCH 30.5 (26-34) PG MCHC 33.8 (30-36) % RDW 12.4 (11.6-14.8) % Plt Count 240 (150-400) X10^3/uL Neut % (Auto) 92.5 H (50-75) % Lymph % (Auto) 3.9 L (25-40) % [place] % (Auto) 3.2 (3-14) % Eos % (Auto) 0.0 L (2-4) % Baso % (Auto) 0.4 (0-2) % Neut # (Auto) 82136 H (3015-1378) /uL Lymph # (Auto) 600 L (7188-4639) /uL [place] # (Auto) 500 (0-900) /uL Eos # (Auto) 0 (0-450) /uL Baso # (Auto) 100 (0-100) /uL PT (10.1-12.7) SECONDS INR (0.9-1.3) APTT (26-36) SECONDS Fibrinogen (211-428) mg/dL D-Dimer (<500) ng/ml Sodium (137-145) mmol/L Potassium (3.4-5.1) mmol/L Chloride (98-107) mmol/L Carbon Dioxide (22-32) mmol/L BUN (7-17) mg/dL Creatinine (0.52-1.04) mg/dL Estimated GFR (>60) mL/min BUN/Creatinine Ratio (6-22) Glucose (70-100) mg/dL Lactate 1.6 (0.7-2.1) mmol/L Calcium (8.4-10.2) mg/dL Total Bilirubin (0.2-1.3) mg/dL AST (14-36) IU/L ALT (<35) IU/L Alkaline Phosphatase (38-126) U/L Total Protein (6.3-8.2) g/dL Albumin (3.5-5.0) g/dL Globulin (1.7-4.1) g/dL Albumin/Globulin Ratio (1.0-2.8) Lipase (23-300) U/L CA 125 Antigen (0-35) U/mL Procalcitonin (<0.5) ng/mL Serum , Qual (Negative) Urine Color Yellow Urine Appearance Sl cloudy Urine pH 7.0 (4.5-8.0) Ur Specific [place] 1.010 (1.000-1.035) Urine Protein Trace H (Negative) Urine Glucose (UA) Negative (Negative) g/dL Urine Ketones 1+ H (NEGATIVE) Urine Occult Blood 3+ H (Negative) Urine Nitrate Negative (Negative) Urine Bilirubin Negative (NEGATIVE) Urine Urobilinogen 0.2 (0.2) E.U./dL Ur Leukocyte Esterase 1+ H (NEGATIVE) Urine RBC 10-30/hpf H (0-5/HPF) Urine WBC 5-10/hpf H (0-5/HPF) Ur Squamous Epith Cells 1-5 /hpf (0-5/HPF) Urine Bacteria Moderate (10-30) H (None) Ur Culture Indicated? Specimen cultured SARS-CoV-2 (PCR) (Negative) Blood Type Antibody Screen Crossmatch 04/14/23 04/14/23 04/14/23 Range/Units 19:00 19:00 19:00 WBC (4.5-11.0) X10^3/uL RBC (4.0-5.2) X10^6/uL Hgb (12.0-16.0) g/dL Hct (36-46) % MCV (80-100) fL MCH (26-34) PG MCHC (30-36) % RDW (11.6-14.8) % Plt Count (150-400) X10^3/uL Neut % (Auto) (50-75) % Lymph % (Auto) (25-40) % [place] % (Auto) (3-14) % Eos % (Auto) (2-4) % Baso % (Auto) (0-2) % Neut # (Auto) (4912-9205) /uL Lymph # (Auto) (3580-3704) /uL [place] # (Auto) (0-900) /uL Eos # (Auto) (0-450) /uL Baso # (Auto) (0-100) /uL PT (10.1-12.7) SECONDS INR (0.9-1.3) APTT (26-36) SECONDS Fibrinogen (211-428) mg/dL D-Dimer (<500) ng/ml Sodium 135 L (137-145) mmol/L Potassium 4.4 (3.4-5.1) mmol/L Chloride 111 H (98-107) mmol/L Carbon Dioxide 17 L (22-32) mmol/L BUN 16 (7-17) mg/dL Creatinine 0.62 (0.52-1.04) mg/dL Estimated GFR > 60 (>60) mL/min BUN/Creatinine Ratio 25.8 H (6-22) Glucose 109 H (70-100) mg/dL Lactate (0.7-2.1) mmol/L Calcium 7.4 L (8.4-10.2) mg/dL Total Bilirubin 0.5 (0.2-1.3) mg/dL AST 19 (14-36) IU/L ALT 12 (<35) IU/L Alkaline Phosphatase 46 (38-126) U/L Total Protein 5.4 L (6.3-8.2) g/dL Albumin 3.1 L (3.5-5.0) g/dL Globulin 2.3 (1.7-4.1) g/dL Albumin/Globulin Ratio 1.3 (1.0-2.8) Lipase (23-300) U/L CA 125 Antigen (0-35) U/mL Procalcitonin (<0.5) ng/mL Serum , Qual (Negative) Urine Color Urine Appearance Urine pH (4.5-8.0) Ur Specific [place] (1.000-1.035) Urine Protein (Negative) Urine Glucose (UA) (Negative) g/dL Urine Ketones (NEGATIVE) Urine Occult Blood (Negative) Urine Nitrate (Negative) Urine Bilirubin (NEGATIVE) Urine Urobilinogen (0.2) E.U./dL Ur Leukocyte Esterase (NEGATIVE) Urine RBC (0-5/HPF) Urine WBC (0-5/HPF) Ur Squamous Epith Cells (0-5/HPF) Urine Bacteria (None) Ur Culture Indicated? SARS-CoV-2 (PCR) Negative (Negative) Blood Type O Positive Antibody Screen Negative Crossmatch See Detail 04/14/23 04/14/23 04/14/23 Range/Units 20:15 20:15 20:15 WBC (4.5-11.0) X10^3/uL RBC (4.0-5.2) X10^6/uL Hgb 6.8 L* (12.0-16.0) g/dL Hct 20.2 L* (36-46) % MCV (80-100) fL MCH (26-34) PG MCHC (30-36) % RDW (11.6-14.8) % Plt Count (150-400) X10^3/uL Neut % (Auto) (50-75) % Lymph % (Auto) (25-40) % [place] % (Auto) (3-14) % Eos % (Auto) (2-4) % Baso % (Auto) (0-2) % Neut # (Auto) (4079-6148) /uL Lymph # (Auto) (1877-7052) /uL [place] # (Auto) (0-900) /uL Eos # (Auto) (0-450) /uL Baso # (Auto) (0-100) /uL PT 14.5 H 13.9 H (10.1-12.7) SECONDS INR 1.3 1.2 (0.9-1.3) APTT 25 L (26-36) SECONDS Fibrinogen 134 L (211-428) mg/dL D-Dimer 533 H (<500) ng/ml Sodium (137-145) mmol/L Potassium (3.4-5.1) mmol/L Chloride (98-107) mmol/L Carbon Dioxide (22-32) mmol/L BUN (7-17) mg/dL Creatinine (0.52-1.04) mg/dL Estimated GFR (>60) mL/min BUN/Creatinine Ratio (6-22) Glucose (70-100) mg/dL Lactate (0.7-2.1) mmol/L Calcium (8.4-10.2) mg/dL Total Bilirubin (0.2-1.3) mg/dL AST (14-36) IU/L ALT (<35) IU/L Alkaline Phosphatase (38-126) U/L Total Protein (6.3-8.2) g/dL Albumin (3.5-5.0) g/dL Globulin (1.7-4.1) g/dL Albumin/Globulin Ratio (1.0-2.8) Lipase (23-300) U/L CA 125 Antigen (0-35) U/mL Procalcitonin (<0.5) ng/mL Serum , Qual (Negative) Urine Color Urine Appearance Urine pH (4.5-8.0) Ur Specific [place] (1.000-1.035) Urine Protein (Negative) Urine Glucose (UA) (Negative) g/dL Urine Ketones (NEGATIVE) Urine Occult Blood (Negative) Urine Nitrate (Negative) Urine Bilirubin (NEGATIVE) Urine Urobilinogen (0.2) E.U./dL Ur Leukocyte Esterase (NEGATIVE) Urine RBC (0-5/HPF) Urine WBC (0-5/HPF) Ur Squamous Epith Cells (0-5/HPF) Urine Bacteria (None) Ur Culture Indicated? SARS-CoV-2 (PCR) (Negative) Blood Type Antibody Screen Crossmatch Imaging Data CT scan - abdomen/pelvis: Radiologist's Impression: Close Pelvis Ultrasound (Signed) Migue Moody - 04/14/23 Abdomen/Pelvis CT (Signed) Migue Moody - 04/14/23 KUB X-Ray (Signed) GomezSilas dela cruz - 03/21/[address] (Signed) Shubham Holden - 03/04/23 KUB X-Ray (Signed) Honey Reyes - 02/21/23 KUB X-Ray (Signed) Ion Grimm - 02/09/23 KUB X-Ray (Signed) Sophia Alexandre - 01/12/23 Launch?[place] [address] CT Scan Report Signed Patient: Seema Torres MR#: [id number] : 1975 Acct:[id number] Age/Sex: 47 / F Date of Service: 04/14/23 Loc: ED Accession Number: [id number] ?? Procedure: CT kidney ureter bladder (KUB) Ordering Provider: Chaya Jimenes D.O. PROCEDURE:? CT KIDNEY URETER BLADDER (KUB) ? INDICATIONS:? left abd/flank pain, ureteral stent 04/04 lithotripsy ? TECHNIQUE:? Axial sections were acquired from the lung bases to the pubic symphysis.? Coronal and sagittal reformats were performed.? For radiation dose reduction, the following was used: ?automated exposure control, adjustment of mA and/or kV according to patient size.? ? COMPARISON:? [facility], CT, CT ABDOMEN PELVIS WO CON, 03/04/2023, 10:56. ? FINDINGS:? Image quality:? Excellent.? ? Lung bases:? Trace right pleural effusion..? ? Heart:? No significant findings. ? URINARY: Right Kidney: ? No stones or hydronephrosis.? Right Ureter:? No hydroureter.? ? Left Kidney:? Stable severe hydronephrosis.? Nephroureteral stent terminates in the extrarenal pelvis and bladder.? Left Ureter:? Stable severe hydroureter? ? Bladder:? Normal wall thickness. No stones. ? ? ? ABDOMEN: Liver:? Unremarkable.? ? Gallbladder:? Unremarkable.? ? Biliary ducts:? Unremarkable.? ? Pancreas:? Unremarkable.? ? Spleen:? Unremarkable.? ? Adrenal Glands:? Unremarkable.? ? ? Stomach and Bowel:? Stomach, small bowel loops, and colon are unremarkable.? Peritoneum:? Moderate amount of free fluid in the pelvis, greater than expected for physiologic. ? Ventral Wall: ? Small umbilical hernia containing.? Abdominal Nodes:? No enlarged retroperitoneal or mesenteric lymph nodes.? Vessels:? Aorta and inferior vena cava are normal in size.? ? PELVIS: Pelvic Organs:? Unremarkable.? ? Pelvic Nodes: Unremarkable. Miscellaneous: No inguinal hernias are seen. ? ? ? Bones:? Unremarkable. ? IMPRESSION:? ? Moderate amount of free fluid in the pelvis of unclear etiology.? This has incr eased compared with prior.? Ureter injury not entirely excluded, although not likely as the fluid is within the peritoneum and not retroperitoneum.? Ruptured ovarian cyst is also consideration. ? Appropriately positioned nephroureteral stent, with persistent severe hydronephrosis and hydroureter. ? ? ? Dictated by: Migue Moody M.D. on 04/14/2023 at 9:26 ? ? Approved by: Migue Moody M.D. on 04/14/2023 at 9:32? US - WATER POLLUTION CONTROL TECHNICIAN: Radiologist's Impression: [place] [address] Ultrasound Report Signed Patient: Seema Torres MR#: [id number] : 1975 Acct:[id number] Age/Sex: 47 / F Date of Service: 04/14/23 Loc: ED Accession Number: [id number] ?? Procedure: US pelvic complete Ordering Provider: Chaya Jimenes D.O. PROCEDURE:? US PELVIC COMPLETE ? INDICATIONS:? LEFT FLANK/ ABDOMEN PAIN ? TECHNIQUE:? Real-time scanning was performed of the pelvic organs, with image documentation.? Additional endovaginal scanning was necessary due to incomplete visualization of the adnexal and endometrial structures by transabdominal scanning.? ? COMPARISON:? [facility], CT, CT KIDNEY URETER BLADDER (KUB), 04/14/2023, 9:09.? [facility], , US PELVIC COMPLETE, 12/30/2020, 14:33. ? FINDINGS:? ?? Uterus:? Hysterectomy. ? Ovaries:? Right ovary not visualized.? The left ovary measures 4.3 x 3.9 x 1.9 cm .? A couple of hyperechoic lesions within the left ovary measuring 2.3 x 2.8 cm and 3.8 x 3.1 cm.? Corpus luteum present.? Blood flow within the left ovary. ? Other:? Mildly complex free fluid within the pelvis. ? Visualized bladder demonstrates bladder debris and a nephroureteral stent. ? ? IMPRESSION:? A couple of hyperechoic lesions in the left ovary could represent solid lesions, less likely endometriomas or atypical hemorrhagic cysts.? Given left lower quadrant pain, follow-up in 6-12 weeks is recommended. ? Mild enlargement of the left ovary.? Doppler blood flow seen within the left ovary.? Intermittent torsion not excluded. ? Complex free fluid in the pelvis.? ? We strive to produce accurate, complete, and clear reports of imaging services. To assist us in improving patient care, this report was composed using standard report templates and voice recognition software. Therefore, it may contain abnormal punctuation, insertions and/or omissions. Occasional wrong-word or sound-alike substitutions may occur. Though we review the report and make efforts to correct it, we do recommend that the report be read carefully in proper context to recognize any text inaccuracies. ? ? Dictated by: Migue Moody M.D. on 04/14/2023 at 11:30 ? ? Approved by: Migue Moody M.D. on 04/14/2023 at 11:38?? MDM Narrative Medical decision making narrative: This is a 47-year-old female with ureteral stent placed approximately a month ago and had lithotripsy for retained stone 10 days ago locally with Dr. Walker. Patient had sudden onset overnight of significant flank and abdominal pain. Sweats, nausea vomiting. Patient is afebrile, heart rates in the 90s patient's blood pressure 169/112. Received fluids, IV pain medications and antiemetics, labs including CBC, CMP, lipase and CT KUB and urine studies. Patient had several doses of pain medications which were helpful. Patient's labs showed elevated lactate, normal renal function, normal white count, lipase and LFTs were otherwise normal. Urine shows possible infection. CT KUB shows persistent severe hydro with stent in place, patient did have urinary retention as well she urinated approximately 800 and had additional 600 in her bladder. She had Sloan catheter placed but did not really improve her pain symptoms. Patient states she is been told she had a very large bladder by the urologist so this is likely longstanding. Patient had pelvic ultrasound as she had more free fluid than expected on her CT KUB, shows left ovarian possible complex cyst, patient does have good Doppler flow. She is had hysterectomy. Spoke with Dr. Merrill 911 dispatcher at [facility] (patient follows with there clinic) would recommend CA 125 and short term follow-up but does not need emergent OR this time. Attempted to reach patient's personally urology team, if they were in the office today but they are unavailable. Spoke with Dr. Neville Tipton through [facility], he reviewed patient's imaging, reviewed workup, gynecology recommendations there is concern for possible obstruction versus infection and he feels patient would be appropriate to be seen and potentially have ureteral stent replacement versus nephrostomy tube if required. Discussed with patient and family at bedside, [facility] has had difficulty with capacity so will likely have to look at other facilities as well for potential transfer. Awaiting confirmation from about bed availability. During patient's stay she has received multiple doses of IV pain medication she has had improvement of her pain but is still quite uncomfortable. Repeat CBC and CMP was sent she is been here since 8:00 a.m. this morning and appears pale, pressure has been in the 110s typically but did have some lows in the 90s after starting fluids and maintenance fluids. Concern for sepsis vs acute blood loss. Patient had not quite received 2 L total so received bolus. Patient herself states that she feels fatigued and tired but otherwise does not feel worse. Additional IV access obtained. Spoke with Dr. Mesa, general surgery need for patient for surgical exploration. Patient had significant drop in her hemoglobin from this morning to this evening. Does not appear to be dilutional, we will recent her rechecked but patient does appear pale. They requested repeat CT KUB for extravasation purposes with contrast. Patient had type and screen for 4 units, initial was given on cross-matched with additional units cross-matched. Patient received TXA IV 1000 mg here in the department. Mass transfusion protocol initiated. I re-contacted Dr. Mesa with CT findings, repeat hemoglobin which has subsequently dropped again and need for emergent surgery. OR team called in, Dr. Mesa on her way in and patient take to OR. Critical Care Time Critical Care Time Critical Care Time: Yes Total Critical Care Time: 45 Attestation: The high probability of a clinically significant, sudden or life threatening deterioration of the [cardiac] system(s) required my full and direct attention, intervention and personal management. The aggregate critical care time was [] minutes. This time is in addition to time spent performing reported procedures but includes the following: [x] Data Review and interpretation [x] Patient assessment and monitoring of vital signs [x] Documentation [x] Medication orders and management Discharge Plan Departure Patient Disposition: Admitted to Surgery Clinical Impression: Abdominal pain, Abdominal hemorrhage, Mass, ovarian, S/P ureteral stent placement Admit Date/Time: 04/14/23 20:35 Admit Provider: Susannah Mesa
[2023-04-14] MEDS: KETOROLAC 30 MG/ML VIAL 15 MG IV ×2 (08:10→17:36)
[2023-04-14] MEDS: ONDANSETRON 4 MG/2 ML INJ IV ×2 (08:10→14:54)
[2023-04-14] MEDS: SODIUM CHLORIDE 0.9% 1,000 ML 1000 ML IV ×4 (08:11→19:02)
[2023-04-14 08:38] LABS: Add Manual Diff / Slide Review NO; Alanine Aminotransferase 15 IU/L (<35); Albumin 4.7 g/dL (3.5-5.0); Albumin Globulin Ratio 1.5 (1.0-2.8); Alkaline Phosphatase 83 U/L (38-126); Aspartate Aminotransferase 24 IU/L (14-36); BUN Creatinine Ratio 22.9 (6-22); Basophils Absolute Auto 100 /uL (0-100); Basophils Percent Auto 0.6 % (0-2); Bilirubin Total 0.6 mg/dL (0.2-1.3); Blood Urea Nitrogen 16 mg/dL (7-17); Calcium 9.7 mg/dL (8.4-10.2); Carbon Dioxide 19 mmol/L (22-32); Chloride 103 mmol/L (98-107); Eosinophils Absolute Auto 0 /uL (0-450); Eosinophils Percent Auto 0.1 % (2-4); Estimated Glomerular Filt Rate > 60 mL/min (>60); Globulin 3.2 g/dL (1.7-4.1); Glucose 136 mg/dL (70-100); HEMOLYSIS < 15 (0-50); Hematocrit 42.3 % (36-46); Hemoglobin 14.5 g/dL (12.0-16.0); Lipase 63 U/L (23-300); Lymphocytes Absolute Auto 1400 /uL (1100-4500); Lymphocytes Percent Auto 8.5 % (25-40); Mean Corpuscular HGB Conc 34.3 % (30-36); Mean Corpuscular Hemoglobin 30.2 PG (26-34); Monocytes Absolute Auto 400 /uL (0-900); Monocytes Percent Auto 2.4 % (3-14); Neutrophils Absolute Auto 14100 /uL (1500-7000); Neutrophils Percent Auto 88.4 % (50-75); Platelet Count 302 X10^3/uL (150-400); Red Blood Cell Count 4.81 X10^6/uL (4.0-5.2); Red Cell Distribution Width 12.7 % (11.6-14.8); Sodium 135 mmol/L (137-145); Total Protein 7.9 g/dL (6.3-8.2); White Blood Cell Count 15.9 X10^3/uL (4.5-11.0)
[2023-04-14] MEDS: LIDOCAINE 2% (PF) 5 ML in SODIUM CHLORIDE 0.9% 50 ML 330 ML IV (08:38)
[2023-04-14] MEDS: MORPHINE 4 MG/ML INJ IV (08:39)
[2023-04-14 08:41] LABS: Pregnancy Test Serum,Qual Negative (Negative)
[2023-04-14] MEDS: HYDROMORPHONE 1 MG INJ IV ×3 (09:20→14:42)
[2023-04-14 09:37] LABS: Lactate (Lactic Acid) 3.1 mmol/L (0.7-2.1)
--- NOTE | 2023-04-14 09:37 | DI.US.S_ITS ---
PROCEDURE: US PELVIC COMPLETE INDICATIONS: LEFT FLANK/ ABDOMEN PAIN TECHNIQUE: Real-time scanning was performed of the pelvic organs, with image documentation. Additional endovaginal scanning was necessary due to incomplete visualization of the adnexal and endometrial structures by transabdominal scanning. COMPARISON: [facility], CT, CT KIDNEY URETER BLADDER (KUB), 04/14/2023, 9:09. [facility], US, US PELVIC COMPLETE, 12/30/2020, 14:33. FINDINGS: Uterus: Hysterectomy. Ovaries: Right ovary not visualized. The left ovary measures 4.3 x 3.9 x 1.9 cm . A couple of hyperechoic lesions within the left ovary measuring 2.3 x 2.8 cm and 3.8 x 3.1 cm. Corpus luteum present. Blood flow within the left ovary. Other: Mildly complex free fluid within the pelvis. Visualized bladder demonstrates bladder debris and a nephroureteral stent. IMPRESSION: A couple of hyperechoic lesions in the left ovary could represent solid lesions, less likely endometriomas or atypical hemorrhagic cysts. Given left lower quadrant pain, follow-up in 6-12 weeks is recommended. Mild enlargement of the left ovary. Doppler blood flow seen within the left ovary. Intermittent torsion not excluded. Complex free fluid in the pelvis. We strive to produce accurate, complete, and clear reports of imaging services. To assist us in improving patient care, this report was composed using standard report templates and voice recognition software. Therefore, it may contain abnormal punctuation, insertions and/or omissions. Occasional wrong-word or sound-alike substitutions may occur. Though we review the report and make efforts to correct it, we do recommend that the report be read carefully in proper context to recognize any text inaccuracies. Dictated by: Migue Moody M.D. on 04/14/2023 at 11:30 Approved by: Migue Moody M.D. on 04/14/2023 at 11:38
[2023-04-14 09:55] LABS: Procalcitonin 0.04 ng/mL (<0.5)
[2023-04-14 10:23] LABS: Appearance Urine UA SL CLOUDY; Bilirubin Urine UA NEGATIVE (NEGATIVE); Color Urine UA YELLOW; Glucose Urine UA NEGATIVE (Negative); Ketones Urine UA 1+ (NEGATIVE); Leukocyte Esterase Urine UA 1+ (NEGATIVE); Nitrite Urine UA NEGATIVE (Negative); Occult Blood Urine UA 3+ (Negative); Protein Urine UA TRACE (Negative); Urobilinogen Urine UA 0.2 E.U./dL (0.2)
[2023-04-14 10:33] LABS: RBC Urine 10-30/HPF (0-5/HPF); WBC Urine 5-10/HPF (0-5/HPF)
[2023-04-14 10:34] LABS: Bacteria Urine Moderate (10-30); Culture Indicated Urine Specimen Cultured; Squamous Epithelial Cell Urine 1-5 /HPF (0-5/HPF)
--- NOTE | 2023-04-14 11:12 | PC.NURSE ---
Pt up to commode, urine output approx 600 ml, cloudy. Ultrasound reports bladder full of fluid. Bladder scan shows 554. Yudy KAUR notified, orders Sloan catheter. Sloan placed with 800 ml output initially. Yudy KAUR notified.
[2023-04-14] MEDS: cefTRIAXone 2,000 MG in SODIUM CHLORIDE 0.9% 100 ML 200 MG IV (11:27)
[2023-04-14 11:28] LABS: Reflexed Lactate in 2 Hours Y
--- NOTE | 2023-04-14 11:52 | PC.NURSE ---
Pt desatted to 78% on room air while sleeping. Placed on 2L O2 via NC.
[2023-04-14 13:22] LABS: Lactate 2HR (Lactic Acid Rflx) 1.6 mmol/L (0.7-2.1)
[2023-04-14 19:11] LABS: Add Manual Diff / Slide Review NO; Basophils Absolute Auto 100 /uL (0-100); Basophils Percent Auto 0.4 % (0-2); Eosinophils Absolute Auto 0 /uL (0-450); Hematocrit 28.8 % (36-46); Hemoglobin 9.7 g/dL (12.0-16.0); Lymphocytes Absolute Auto 600 /uL (1100-4500); Lymphocytes Percent Auto 3.9 % (25-40); Mean Corpuscular HGB Conc 33.8 % (30-36); Mean Corpuscular Hemoglobin 30.5 PG (26-34); Mean Corpuscular Volume 90.3 fL (80-100); Monocytes Absolute Auto 500 /uL (0-900); Monocytes Percent Auto 3.2 % (3-14); Neutrophils Absolute Auto 13000 /uL (1500-7000); Neutrophils Percent Auto 92.5 % (50-75); Platelet Count 240 X10^3/uL (150-400); Red Blood Cell Count 3.19 X10^6/uL (4.0-5.2); Red Cell Distribution Width 12.4 % (11.6-14.8); White Blood Cell Count 14.1 X10^3/uL (4.5-11.0)
--- NOTE | 2023-04-14 19:22 | DI.CT.S_ITS ---
PROCEDURE: CT ABDOMEN PELVIS W CON INDICATIONS: abd pain, left flank abd, drop hemoglobin TECHNIQUE: After the administration of IV contrast, axial sections were acquired from the lung bases to the pubic symphysis. Coronal and sagittal reformats were performed. For radiation dose reduction, the following was used: automated exposure control, adjustment of mA and/or kV according to patient size. COMPARISON: [facility], CT, CT KIDNEY URETER BLADDER (KUB), 04/14/2023, 9:09. FINDINGS: Image quality: Excellent. Lung bases: There are bilateral pleural effusions, moderate on the right and minimal on the left. The density of the right pleural fluid is higher than expected for simple fluid. A small amount of dependent debris is also noted. Findings are compatible with a hemothorax. Associated compressive atelectasis is demonstrated. Heart: Heart is normal in size. There is a small pericardial effusion. ABDOMEN: Liver: No mass lesion. Gallbladder: Within normal limits without calcified gallstones. Biliary ducts: No biliary ductal dilatation. Pancreas: Unremarkable. Spleen: Normal in size. Adrenal Glands: No adrenal nodules. Kidneys and Ureters: There is a left ureteral stent redemonstrated with the proximal coil in the left renal pelvis and the distal coil in the bladder. There is persistent moderate left hydroureteronephrosis. No right hydronephrosis. Stomach and Bowel: Stomach, small bowel loops, and colon are normal in caliber and wall thickness. Peritoneum: There is a large amount of high density free fluid in the pelvis as well which is markedly increased from the prior study from earlier in the day. There is also a small amount of free fluid in the upper quadrants bilaterally. The findings are consistent with hemoperitoneum. No definite active arterial extravasation identified. Ventral Wall: No hernia. Abdominal Nodes: No retroperitoneal or mesenteric adenopathy by size criteria. Vessels: Aorta and inferior vena cava are normal in size. PELVIS: Pelvic Organs: Unremarkable. Bladder: There is a Sloan catheter within a decompressed urinary bladder. Pelvic Nodes: No enlarged lymph nodes. Miscellaneous: No inguinal hernias are seen. Bones: Visualized osseous structures demonstrate no suspicious focal lesions. IMPRESSION: 1. Large amount of hemoperitoneum with high density clot in the pelvis consistent with a pelvic source. No definite active arterial extravasation identified but given the marked increased compared to the previous study from the same day, venous extravasation is suspected. 2. New moderate size right hemoperitoneum likely reflects extension of blood product from the peritoneum. 3. Persistent moderate left hydroureteronephrosis with a ureteral stent in place. Findings discussed with Dr. Jimenes on 04/14/2023 at 8:21 p.m.. Dictated by: Tree Nguyen M.D. on 04/14/2023 at 20:21 Approved by: Tree Nguyen M.D. on 04/14/2023 at 20:43
[2023-04-14 19:27] LABS: COVID19 -Nasal RAPID Negative (Negative)
[2023-04-14 19:32] LABS: Alanine Aminotransferase 12 IU/L (<35); Albumin 3.1 g/dL (3.5-5.0); Albumin Globulin Ratio 1.3 (1.0-2.8); Alkaline Phosphatase 46 U/L (38-126); Aspartate Aminotransferase 19 IU/L (14-36); BUN Creatinine Ratio 25.8 (6-22); Bilirubin Total 0.5 mg/dL (0.2-1.3); Blood Urea Nitrogen 16 mg/dL (7-17); Calcium 7.4 mg/dL (8.4-10.2); Carbon Dioxide 17 mmol/L (22-32); Chloride 111 mmol/L (98-107); Estimated Glomerular Filt Rate > 60 mL/min (>60); Globulin 2.3 g/dL (1.7-4.1); Glucose 109 mg/dL (70-100); HEMOLYSIS < 15 (0-50); Potassium 4.4 mmol/L (3.4-5.1); Sodium 135 mmol/L (137-145); Total Protein 5.4 g/dL (6.3-8.2)
[2023-04-14] MEDS: methylPREDNISolone 125 MG/2 ML VIAL IV (19:34)
[2023-04-14] MEDS: diphenhydrAMINE 50 MG/ML VIAL 25 MG IV (19:35)
[2023-04-14] MEDS: TRANEXAMIC ACID 1,000 MG in SODIUM CHLORIDE 0.9% 100 ML 200 MG IV (19:53)
[2023-04-14 20:24] LABS: Hematocrit 20.2 % (36-46); Hemoglobin 6.8 g/dL (12.0-16.0)
[2023-04-14 20:35] LABS: INR 1.3 (0.9-1.3); Prothrombin Time 14.5 SECONDS (10.1-12.7)
[2023-04-14 21:03] LABS: INR 1.2 (0.9-1.3); Prothrombin Time 13.9 SECONDS (10.1-12.7)
[2023-04-14 21:04] LABS: D Dimer 533 ng/ml (<500); Fibrinogen 134 mg/dL (211-428)
[2023-04-14 21:05] LABS: PTT Partial Thromboplastin Tim 25 SECONDS (26-36)
--- NOTE | 2023-04-14 21:09 | PC.NURSE ---
1st unit infused [id number] 2nd and 3rds units infusing, pt continues aaox 3 to OR per stretcher and OR crew
--- NOTE | 2023-04-14 21:20 | P.HP_ITS ---
History of Present Illness History of Present Illness Date Patient Seen: 04/14/23 Time Patient Seen: 21:20 Chief complaint: post op stent /HX kidney stone V/ pain/bleeding Narrative: Left sided flank pain starting today, h/o hydronephrosis and lithotripsy on left kidney. H/o uterine cancer. Unclear etiology of pain this morning with acute deterioration over the course of the afternoon. Dramatic drop in hct. Repeat CT scan does not reveal a source, but +hemoperitoneum. [facility] Medical History Anxiety and depression (~1997) Chronic back pain (~2000) Fibromyalgia (~2011) History of depression History of kidney stones Hx of cancer of uterus Hx of migraine headaches Hx of nephrolithotomy with removal of calculi Hx of neurological disease Hydronephrosis, left Kidney stones (~2008) Left renal stone Menorrhagia (~2011) Migraine headache without aura (~1998) Painful menstrual periods (~2011) Recurrent sinusitis Restless leg syndrome (~2011) S/P extracorporeal shock wave therapy (01/31/23) Surgical History Anesthesia History of lithotripsy [place] teeth extracted Family History Father Prediabetes Hypertension Hyperlipidemia Grandfather Cancer Hypertension Hyperlipidemia Stroke Grandmother Cancer Hyperlipidemia Hypertension Stroke Grandmother Bladder cancer Breast cancer Social History marital status: number of children: 2 household members: children Smoking Status: Never smoker alcohol intake: never caffeine: No Type(s) of exercise: walking frequency: daily duration: > 90 minutes/day Meds Home Medications and Allergies Home Medications Medication Instructions Recorded Confirmed Type No Known Home Medications 03/23/23 04/04/23 History Allergies Allergy/AdvReac Type Severity Reaction Status Date / Time Sulfa (Sulfonamide Allergy Intermediate Verified 04/04/23 07:09 Antibiotics) hydrocodone [From Vicodin] Allergy Unknown Verified 04/04/23 07:09 Review of Systems Review of Systems ROS: Yes All systems reviewed with the patient and are negative except as otherwise documented Exam Vital Signs (past 8 hours): - 04/14/23 13:30 04/14/23 14:00 04/14/23 14:30 Temperature Pulse Rate 82 85 81 Respiratory Rate 13 16 10 L Blood Pressure Pulse Oximetry 98 99 100 Oxygen Delivery Method Oxygen Flow Rate 04/14/23 15:00 04/14/23 15:30 04/14/23 16:00 Temperature Pulse Rate 91 H 80 77 Respiratory Rate 20 14 12 Blood Pressure Pulse Oximetry 100 98 98 Oxygen Delivery Method Oxygen Flow Rate 04/14/23 16:30 04/14/23 17:00 04/14/23 17:07 Temperature Pulse Rate 100 H 84 Respiratory Rate 17 13 Blood Pressure 119/68 Pulse Oximetry 99 99 Oxygen Delivery Method Oxygen Flow Rate 04/14/23 17:07 04/14/23 17:30 04/14/23 17:30 Temperature Pulse Rate 103 H 96 H Respiratory Rate 23 14 Blood Pressure 105/63 Pulse Oximetry 99 100 Oxygen Delivery Method Nasal Cannula Oxygen Flow Rate 2 04/14/23 18:00 04/14/23 18:00 04/14/23 18:30 Temperature Pulse Rate 97 H Respiratory Rate 15 Blood Pressure 111/75 96/56 L Pulse Oximetry 99 Oxygen Delivery Method Oxygen Flow Rate 04/14/23 18:30 04/14/23 19:00 04/14/23 19:00 Temperature Pulse Rate 95 H 80 Respiratory Rate 16 12 Blood Pressure 106/69 Pulse Oximetry 97 95 Oxygen Delivery Method Oxygen Flow Rate 04/14/23 19:57 04/14/23 19:57 04/14/23 20:00 Temperature Pulse Rate 93 H Respiratory Rate 18 Blood Pressure 120/58 L 116/55 L Pulse Oximetry 100 Oxygen Delivery Method Oxygen Flow Rate 04/14/23 20:00 04/14/23 20:24 04/14/23 20:47 Temperature 97.7 F 98.4 F Pulse Rate 87 78 93 H Respiratory Rate 16 16 24 Blood Pressure 116/55 L 114/59 L Pulse Oximetry 99 Oxygen Delivery Method Oxygen Flow Rate 04/14/23 20:05 04/14/23 20:10 04/14/23 20:15 Temperature Pulse Rate 81 83 85 Respiratory Rate 16 15 17 Blood Pressure Pulse Oximetry 99 100 99 Oxygen Delivery Method Oxygen Flow Rate 04/14/23 20:20 04/14/23 20:25 04/14/23 20:30 Temperature Pulse Rate 84 79 Respiratory Rate 19 14 Blood Pressure 114/59 L Pulse Oximetry 100 100 Oxygen Delivery Method Oxygen Flow Rate 04/14/23 20:30 04/14/23 20:35 04/14/23 20:40 Temperature Pulse Rate 87 98 H 92 H Respiratory Rate 16 16 16 Blood Pressure Pulse Oximetry 100 99 100 Oxygen Delivery Method Oxygen Flow Rate 04/14/23 20:45 04/14/23 20:55 04/14/23 20:50 Temperature 98.4 F Pulse Rate 95 H 83 92 H Respiratory Rate 19 14 17 Blood Pressure 121/69 Pulse Oximetry 99 100 Oxygen Delivery Method Oxygen Flow Rate 04/14/23 20:51 04/14/23 20:51 04/14/23 20:55 Temperature Pulse Rate 93 H 84 Respiratory Rate 17 17 Blood Pressure 121/69 Pulse Oximetry 100 100 Oxygen Delivery Method Oxygen Flow Rate 04/14/23 21:00 04/14/23 21:00 04/14/23 21:17 Temperature 97.8 F 97.9 F Pulse Rate 88 85 Respiratory Rate 22 11 L Blood Pressure 128/76 138/78 Pulse Oximetry 100 100 Oxygen Delivery Method Room Air Oxygen Flow Rate Oxygen Delivery Method Room Air Oxygen Flow Rate 2 Const General: cooperative, acute distress and anxious Nutritional Appearance: average body habitus Orientation: alert, awake and oriented x3 HENMT Head: normocephalic and atraumatic Eyes General: appearance normal, both eyes and all related structures Sclera: sclerae normal Neck Neck: trachea midline Chest Chest: normal inspection of the chest Resp Effort & Inspection: normal respiratory effort and able to speak in complete sentences Cardio Rate: regular rate Rhythm: regular rhythm GI Palpation: soft Skin General: pallor Neuro General: patient alert, patient awake and patient oriented x3 Cognition: normal cognition Psych Mental Status: mental status grossly normal Judgment: judgment good Objective Labs 04/14/23 20:15 04/14/23 19:00 Labs: Laboratory Results - last 24 hr 04/14/23 04/14/23 04/14/23 08:18 08:18 08:18 WBC 15.9 H RBC 4.81 Hgb 14.5 Hct 42.3 MCV 88.0 MCH 30.2 MCHC 34.3 RDW 12.7 Plt Count 302 Neut % (Auto) 88.4 H Lymph % (Auto) 8.5 L [place] % (Auto) 2.4 L Eos % (Auto) 0.1 L Baso % (Auto) 0.6 Neut # (Auto) 54331 H Lymph # (Auto) 1400 [place] # (Auto) 400 Eos # (Auto) 0 Baso # (Auto) 100 PT INR APTT Fibrinogen D-Dimer Sodium 135 L Potassium 4.0 Chloride 103 Carbon Dioxide 19 L BUN 16 Creatinine 0.70 Estimated GFR > 60 BUN/Creatinine Ratio 22.9 H Glucose 136 H Lactate Calcium 9.7 Total Bilirubin 0.6 AST 24 ALT 15 Alkaline Phosphatase 83 Total Protein 7.9 Albumin 4.7 Globulin 3.2 Albumin/Globulin Ratio 1.5 Lipase 63 CA 125 Antigen Procalcitonin Serum , Qual Negative Urine Color Urine Appearance Urine pH Ur Specific [place] Urine Protein Urine Glucose (UA) Urine Ketones Urine Occult Blood Urine Nitrate Urine Bilirubin Urine Urobilinogen Ur Leukocyte Esterase Urine RBC Urine WBC Ur Squamous Epith Cells Urine Bacteria Ur Culture Indicated? SARS-CoV-2 (PCR) Blood Type Antibody Screen Crossmatch 04/14/23 04/14/23 04/14/23 08:18 08:18 08:18 WBC RBC Hgb Hct MCV MCH MCHC RDW Plt Count Neut % (Auto) Lymph % (Auto) [place] % (Auto) Eos % (Auto) Baso % (Auto) Neut # (Auto) Lymph # (Auto) [place] # (Auto) Eos # (Auto) Baso # (Auto) PT INR APTT Fibrinogen D-Dimer Sodium Potassium Chloride Carbon Dioxide BUN Creatinine Estimated GFR BUN/Creatinine Ratio Glucose Lactate 3.1 H Calcium Total Bilirubin AST ALT Alkaline Phosphatase Total Protein Albumin Globulin Albumin/Globulin Ratio Lipase CA 125 Antigen 13.0 Procalcitonin 0.04 Serum , Qual Urine Color Urine Appearance Urine pH Ur Specific [place] Urine Protein Urine Glucose (UA) Urine Ketones Urine Occult Blood Urine Nitrate Urine Bilirubin Urine Urobilinogen Ur Leukocyte Esterase Urine RBC Urine WBC Ur Squamous Epith Cells Urine Bacteria Ur Culture Indicated? SARS-CoV-2 (PCR) Blood Type Antibody Screen Crossmatch 04/14/23 04/14/23 04/14/23 10:05 11:45 19:00 WBC 14.1 H RBC 3.19 L Hgb 9.7 L Hct 28.8 L MCV 90.3 MCH 30.5 MCHC 33.8 RDW 12.4 Plt Count 240 Neut % (Auto) 92.5 H Lymph % (Auto) 3.9 L [place] % (Auto) 3.2 Eos % (Auto) 0.0 L Baso % (Auto) 0.4 Neut # (Auto) 70780 H Lymph # (Auto) 600 L [place] # (Auto) 500 Eos # (Auto) 0 Baso # (Auto) 100 PT INR APTT Fibrinogen D-Dimer Sodium Potassium Chloride Carbon Dioxide BUN Creatinine Estimated GFR BUN/Creatinine Ratio Glucose Lactate 1.6 Calcium Total Bilirubin AST ALT Alkaline Phosphatase Total Protein Albumin Globulin Albumin/Globulin Ratio Lipase CA 125 Antigen Procalcitonin Serum , Qual Urine Color Yellow Urine Appearance Sl cloudy Urine pH 7.0 Ur Specific [place] 1.010 Urine Protein Trace H Urine Glucose (UA) Negative Urine Ketones 1+ H Urine Occult Blood 3+ H Urine Nitrate Negative Urine Bilirubin Negative Urine Urobilinogen 0.2 Ur Leukocyte Esterase 1+ H Urine RBC 10-30/hpf H Urine WBC 5-10/hpf H Ur Squamous Epith Cells 1-5 /hpf Urine Bacteria Moderate (10-30) H Ur Culture Indicated? Specimen cultured SARS-CoV-2 (PCR) Blood Type Antibody Screen Crossmatch 04/14/23 04/14/23 04/14/23 19:00 19:00 19:00 WBC RBC Hgb Hct MCV MCH MCHC RDW Plt Count Neut % (Auto) Lymph % (Auto) [place] % (Auto) Eos % (Auto) Baso % (Auto) Neut # (Auto) Lymph # (Auto) [place] # (Auto) Eos # (Auto) Baso # (Auto) PT INR APTT Fibrinogen D-Dimer Sodium 135 L Potassium 4.4 Chloride 111 H Carbon Dioxide 17 L BUN 16 Creatinine 0.62 Estimated GFR > 60 BUN/Creatinine Ratio 25.8 H Glucose 109 H Lactate Calcium 7.4 L Total Bilirubin 0.5 AST 19 ALT 12 Alkaline Phosphatase 46 Total Protein 5.4 L Albumin 3.1 L Globulin 2.3 Albumin/Globulin Ratio 1.3 Lipase CA 125 Antigen Procalcitonin Serum , Qual Urine Color Urine Appearance Urine pH Ur Specific [place] Urine Protein Urine Glucose (UA) Urine Ketones Urine Occult Blood Urine Nitrate Urine Bilirubin Urine Urobilinogen Ur Leukocyte Esterase Urine RBC Urine WBC Ur Squamous Epith Cells Urine Bacteria Ur Culture Indicated? SARS-CoV-2 (PCR) Negative Blood Type O Positive Antibody Screen Negative Crossmatch See Detail 04/14/23 04/14/23 04/14/23 20:15 20:15 20:15 WBC RBC Hgb 6.8 L* Hct 20.2 L* MCV MCH MCHC RDW Plt Count Neut % (Auto) Lymph % (Auto) [place] % (Auto) Eos % (Auto) Baso % (Auto) Neut # (Auto) Lymph # (Auto) [place] # (Auto) Eos # (Auto) Baso # (Auto) PT 14.5 H 13.9 H INR 1.3 1.2 APTT 25 L Fibrinogen 134 L D-Dimer 533 H Sodium Potassium Chloride Carbon Dioxide BUN Creatinine Estimated GFR BUN/Creatinine Ratio Glucose Lactate Calcium Total Bilirubin AST ALT Alkaline Phosphatase Total Protein Albumin Globulin Albumin/Globulin Ratio Lipase CA 125 Antigen Procalcitonin Serum , Qual Urine Color Urine Appearance Urine pH Ur Specific [place] Urine Protein Urine Glucose (UA) Urine Ketones Urine Occult Blood Urine Nitrate Urine Bilirubin Urine Urobilinogen Ur Leukocyte Esterase Urine RBC Urine WBC Ur Squamous Epith Cells Urine Bacteria Ur Culture Indicated? SARS-CoV-2 (PCR) Blood Type Antibody Screen Crossmatch Assessment & Plan Assessment & Plan narrative: Spontaneous hemoperitoneum Plan: Massive transfusion protocol Exploratory laparotomy Time Spent With Patient Time with patient: 30 to 49 minutes with 50% spent counseling/coordinating care
[2023-04-14] MEDS: CEFAZOLIN 2 GM/100 ML PREMIX 100 ML IV (21:29)
--- NOTE | 2023-04-14 21:57 | SUR.OPER ---
Supine on padded OR bed, head on pillow, arms secured on padded arm boards at <90 degrees abduction, legs uncrossed, safety belt at thigh, tape over blanket over lower legs.
--- NOTE | 2023-04-14 22:15 | SUR.OPER ---
Surgery completed; surgeon out of room. Patient being recovered in OR room 4 due to critical nature of surgery and massive blood loss.
--- NOTE | 2023-04-14 22:34 | PM.OP.1 ---
Operative Date/Time/Diagnoses Date of procedure: 04/14/23 Time of procedure: 22:34 Pre-op diagnosis: Hemoperitoneum, hemorrhagic shock Post-op diagnosis: same Procedure & Clinicians Procedure: Exploratory laparotomy with left oophorectomy Same procedure as scheduled: Yes Indications: Hemorrhagic shock Surgeon: Susannah Mesa Click Yes if Unassisted: Yes Anesthesia Type: General Operative Notes Findings: Hemorrhagic left ovary, abdomen filled with blood Closure Type: primary Specimen(s): other (Left ovary) Estimated Blood Loss (mL): 15 Blood products transfused: packed red blood cells (See nursing note) Procedure in detail: Preop diagnosis: Hemorrhagic shock and hemoperitoneum Postop diagnosis: Same Operative procedure: Exploratory laparotomy with left oophorectomy Surgeon: Sherri Mesa MD Anesthetic: General with ET tube intubation Findings: Hemoperitoneum originating from the pelvis. Hemorrhagic left ovary Procedure: Patient placed in a supine position. Prepped and draped sterile fashion to expose her abdomen. Lower midline incision was created using a 10 blade and electrocautery along with blunt dissection. Was created with hemoperitoneum which was evacuated placed in clots into a accompanying basin. Readily located the source being the left ovary. Ovary was clamped at its pedicle and removed using Hart scissors. Pedicle was oversewn with 3-0 silk suture. The abdomen was irrigated to a clear return. Omentum was pulled down across the exposed bowel prior to closure of the midline wound. Fascial closure consisted of a running looped 0 PDS. Skin was closed with surgical geronimo. Patient was awakened, extubated, taken to ICU in stable condition. Needle, instrument, sponge counts were correct. Active blood loss: 15 mL Old blood in the abdomen: 1.5 L Specimen: Left ovary Complications: none Post-operative Condition: stable Disposition: ICU
[2023-04-14] MEDS: MORPHINE 4 MG/ML INJ 3 MG IV (23:11)
[2023-04-14] MEDS: SCOPOLAMINE 1 PATCH TOP (23:13)
[2023-04-14] MEDS: SODIUM CHLORIDE 0.9% 1,000 ML 100 ML IV (23:14)
[2023-04-14] MEDS: cefTRIAXone 1,000 MG in SODIUM CHLORIDE 0.9% 100 ML 200 MG IV (23:15)
[2023-04-14] MEDS: HYDROMORPHONE 0.5 MG INJ IV (23:41)
[2023-04-15] VITALS (274 sets, daily range): BP systolic 72–143; BP diastolic 46–84; PULSE 70–115; RESP 11–37; TEMP 36.3–37.4; O2SAT 73–100
[2023-04-15] MEDS: HYDROMORPHONE 1 MG INJ IV (01:43)
[2023-04-15 03:06] LABS: MRSA (Nasal) PCR DETECTED (Not Detect)
[2023-04-15 04:25] LABS: Add Manual Diff / Slide Review NO; Basophils Absolute Auto 0 /uL (0-100); Basophils Percent Auto 0.1 % (0-2); Eosinophils Absolute Auto 0 /uL (0-450); Hematocrit 24.3 % (36-46); Hemoglobin 8.3 g/dL (12.0-16.0); Lymphocytes Absolute Auto 700 /uL (1100-4500); Lymphocytes Percent Auto 4.4 % (25-40); Mean Corpuscular HGB Conc 34.2 % (30-36); Mean Corpuscular Hemoglobin 29.4 PG (26-34); Mean Corpuscular Volume 85.8 fL (80-100); Monocytes Absolute Auto 500 /uL (0-900); Monocytes Percent Auto 2.8 % (3-14); Neutrophils Absolute Auto 15100 /uL (1500-7000); Neutrophils Percent Auto 92.7 % (50-75); Platelet Count 212 X10^3/uL (150-400); Red Blood Cell Count 2.83 X10^6/uL (4.0-5.2); Red Cell Distribution Width 15.1 % (11.6-14.8); White Blood Cell Count 16.3 X10^3/uL (4.5-11.0)
[2023-04-15 04:29] LABS: Blood Urea Nitrogen 18 mg/dL (7-17); Calcium 7.4 mg/dL (8.4-10.2); Carbon Dioxide 17 mmol/L (22-32); Chloride 111 mmol/L (98-107); Estimated Glomerular Filt Rate > 60 mL/min (>60); Glucose 168 mg/dL (70-100); HEMOLYSIS < 15 (0-50); Potassium 4.2 mmol/L (3.4-5.1); Sodium 132 mmol/L (137-145)
--- NOTE | 2023-04-15 05:33 | PC.NURSE ---
Pt complaining of pain, unrelieved by pian medication already on board. Phoned surgeon, received new pain medication order. BPs became soft. Pt arousable and responsive. All other vitals stable. Phoned surgeon about blood pressure. Ordered 1L NS bolus.
[2023-04-15] MEDS: SODIUM CHLORIDE 0.9% 1,000 ML 1000 ML IV (05:41)
[2023-04-15] MEDS: PANTOPRAZOLE DR 40 MG TABLET PO (07:59)
[2023-04-15] MEDS: HYDROMORPHONE 0.5 MG INJ IV ×5 (09:00→22:44)
[2023-04-15] MEDS: KETOROLAC 30 MG/ML VIAL 15 MG IV ×3 (10:31→22:35)
[2023-04-15] MEDS: SODIUM CHLORIDE 0.9% 1,000 ML 100 ML IV (10:35)
--- NOTE | 2023-04-15 10:40 | PM.PNPO.1 ---
Subjective Subjective Date Patient Seen: 04/15/23 Time Patient Seen: 10:40 Interval history: Fatigue and poorly controlled pain. Sensitive to narcotics with hypotension as response. Exam Vital Signs (past 8 hours): - 04/15/23 03:00 04/15/23 02:45 04/15/23 02:50 Temperature Pulse Rate 104 H 114 H Respiratory Rate 13 19 Blood Pressure Pulse Oximetry 98 98 Oxygen Delivery Method Nasal Cannula 04/15/23 02:55 04/15/23 02:59 04/15/23 03:00 Temperature Pulse Rate 102 H 103 H Respiratory Rate 12 13 Blood Pressure 76/49 L Pulse Oximetry 98 98 Oxygen Delivery Method 04/15/23 03:00 04/15/23 03:05 04/15/23 03:05 Temperature Pulse Rate 101 H 105 H Respiratory Rate 14 16 Blood Pressure 75/48 L Pulse Oximetry 99 99 Oxygen Delivery Method 04/15/23 03:10 04/15/23 03:15 04/15/23 03:20 Temperature Pulse Rate 101 H 115 H 100 H Respiratory Rate 14 19 14 Blood Pressure Pulse Oximetry 99 98 98 Oxygen Delivery Method 04/15/23 03:25 04/15/23 03:30 04/15/23 03:30 Temperature Pulse Rate 100 H 101 H Respiratory Rate 14 14 Blood Pressure 81/52 L Pulse Oximetry 98 98 Oxygen Delivery Method 04/15/23 03:35 04/15/23 03:40 04/15/23 03:45 Temperature Pulse Rate 100 H 100 H 100 H Respiratory Rate 15 13 14 Blood Pressure Pulse Oximetry 99 99 98 Oxygen Delivery Method 04/15/23 03:50 04/15/23 03:55 04/15/23 04:00 Temperature Pulse Rate 100 H 102 H Respiratory Rate 13 13 Blood Pressure 77/52 L Pulse Oximetry 99 99 Oxygen Delivery Method 04/15/23 04:00 04/15/23 04:05 04/15/23 04:10 Temperature Pulse Rate 102 H 101 H 103 H Respiratory Rate 14 13 15 Blood Pressure Pulse Oximetry 99 99 99 Oxygen Delivery Method 04/15/23 04:15 04/15/23 04:20 04/15/23 04:25 Temperature Pulse Rate 103 H 101 H 100 H Respiratory Rate 15 13 13 Blood Pressure Pulse Oximetry 99 99 99 Oxygen Delivery Method 04/15/23 04:30 04/15/23 04:30 04/15/23 04:35 Temperature Pulse Rate 100 H 101 H Respiratory Rate 15 13 Blood Pressure 78/49 L Pulse Oximetry 99 99 Oxygen Delivery Method 04/15/23 04:40 04/15/23 04:45 04/15/23 04:50 Temperature Pulse Rate 101 H 101 H 102 H Respiratory Rate 13 13 12 Blood Pressure Pulse Oximetry 99 99 99 Oxygen Delivery Method 04/15/23 04:55 04/15/23 05:00 04/15/23 05:00 Temperature Pulse Rate 101 H 99 H Respiratory Rate 13 14 Blood Pressure 75/49 L Pulse Oximetry 99 99 Oxygen Delivery Method 04/15/23 05:30 04/15/23 05:05 04/15/23 05:06 Temperature 97.8 F Pulse Rate 110 H Respiratory Rate 20 Blood Pressure 72/49 L Pulse Oximetry 99 Oxygen Delivery Method 04/15/23 05:06 04/15/23 05:10 04/15/23 05:15 Temperature Pulse Rate 108 H 103 H 100 H Respiratory Rate 16 15 13 Blood Pressure Pulse Oximetry 99 99 98 Oxygen Delivery Method 04/15/23 05:20 04/15/23 05:25 04/15/23 05:28 Temperature Pulse Rate 100 H 97 H Respiratory Rate 14 12 Blood Pressure 75/49 L Pulse Oximetry 99 99 Oxygen Delivery Method 04/15/23 05:28 04/15/23 05:30 04/15/23 05:35 Temperature Pulse Rate 94 H 101 H 99 H Respiratory Rate 14 13 13 Blood Pressure Pulse Oximetry 99 99 98 Oxygen Delivery Method 04/15/23 05:40 04/15/23 05:45 04/15/23 05:50 Temperature Pulse Rate 96 H 91 H 89 Respiratory Rate 13 12 12 Blood Pressure Pulse Oximetry 99 99 97 Oxygen Delivery Method 04/15/23 05:55 04/15/23 06:00 04/15/23 06:00 Temperature Pulse Rate 87 89 Respiratory Rate 12 13 Blood Pressure 79/48 L Pulse Oximetry 97 97 Oxygen Delivery Method Oxygen Delivery Method Nasal Cannula Oxygen Flow Rate 3 Narrative Exam Narrative: Pale, soft abdomen, non distended. Labs show HCT 24% after 3 units. Objective Labs 04/15/23 04:12 04/15/23 04:12 Labs: Laboratory Results - last 24 hr 04/14/23 04/14/23 04/14/23 08:18 11:45 19:00 WBC 14.1 H RBC 3.19 L Hgb 9.7 L Hct 28.8 L MCV 90.3 MCH 30.5 MCHC 33.8 RDW 12.4 Plt Count 240 Neut % (Auto) 92.5 H Lymph % (Auto) 3.9 L [place] % (Auto) 3.2 Eos % (Auto) 0.0 L Baso % (Auto) 0.4 Neut # (Auto) 18111 H Lymph # (Auto) 600 L [place] # (Auto) 500 Eos # (Auto) 0 Baso # (Auto) 100 PT INR APTT Fibrinogen D-Dimer Sodium Potassium Chloride Carbon Dioxide BUN Creatinine Estimated GFR BUN/Creatinine Ratio Glucose Lactate 1.6 Calcium Total Bilirubin AST ALT Alkaline Phosphatase Total Protein Albumin Globulin Albumin/Globulin Ratio CA 125 Antigen 13.0 Nasal Screen MRSA (PCR) SARS-CoV-2 (PCR) Blood Type Antibody Screen Crossmatch 04/14/23 04/14/23 04/14/23 19:00 19:00 19:00 WBC RBC Hgb Hct MCV MCH MCHC RDW Plt Count Neut % (Auto) Lymph % (Auto) [place] % (Auto) Eos % (Auto) Baso % (Auto) Neut # (Auto) Lymph # (Auto) [place] # (Auto) Eos # (Auto) Baso # (Auto) PT INR APTT Fibrinogen D-Dimer Sodium 135 L Potassium 4.4 Chloride 111 H Carbon Dioxide 17 L BUN 16 Creatinine 0.62 Estimated GFR > 60 BUN/Creatinine Ratio 25.8 H Glucose 109 H Lactate Calcium 7.4 L Total Bilirubin 0.5 AST 19 ALT 12 Alkaline Phosphatase 46 Total Protein 5.4 L Albumin 3.1 L Globulin 2.3 Albumin/Globulin Ratio 1.3 CA 125 Antigen Nasal Screen MRSA (PCR) SARS-CoV-2 (PCR) Negative Blood Type O Positive Antibody Screen Negative Crossmatch See Detail 04/14/23 04/14/23 04/14/23 20:15 20:15 20:15 WBC RBC Hgb 6.8 L* Hct 20.2 L* MCV MCH MCHC RDW Plt Count Neut % (Auto) Lymph % (Auto) [place] % (Auto) Eos % (Auto) Baso % (Auto) Neut # (Auto) Lymph # (Auto) [place] # (Auto) Eos # (Auto) Baso # (Auto) PT 14.5 H 13.9 H INR 1.3 1.2 APTT 25 L Fibrinogen 134 L D-Dimer 533 H Sodium Potassium Chloride Carbon Dioxide BUN Creatinine Estimated GFR BUN/Creatinine Ratio Glucose Lactate Calcium Total Bilirubin AST ALT Alkaline Phosphatase Total Protein Albumin Globulin Albumin/Globulin Ratio CA 125 Antigen Nasal Screen MRSA (PCR) SARS-CoV-2 (PCR) Blood Type Antibody Screen Crossmatch 04/14/23 04/15/23 04/15/23 22:45 04:12 04:12 WBC 16.3 H RBC 2.83 L Hgb 8.3 L Hct 24.3 L MCV 85.8 D MCH 29.4 MCHC 34.2 RDW 15.1 H Plt Count 212 Neut % (Auto) 92.7 H Lymph % (Auto) 4.4 L [place] % (Auto) 2.8 L Eos % (Auto) 0.0 L Baso % (Auto) 0.1 Neut # (Auto) 91237 H Lymph # (Auto) 700 L [place] # (Auto) 500 Eos # (Auto) 0 Baso # (Auto) 0 PT INR APTT Fibrinogen D-Dimer Sodium 132 L Potassium 4.2 Chloride 111 H Carbon Dioxide 17 L BUN 18 H Creatinine 0.75 Estimated GFR > 60 BUN/Creatinine Ratio 24.0 H Glucose 168 H Lactate Calcium 7.4 L Total Bilirubin AST ALT Alkaline Phosphatase Total Protein Albumin Globulin Albumin/Globulin Ratio CA 125 Antigen Nasal Screen MRSA (PCR) Detected H SARS-CoV-2 (PCR) Blood Type Antibody Screen Crossmatch [facility] Medical History Anxiety and depression (~1997) Chronic back pain (~2000) Fibromyalgia (~2011) History of depression History of kidney stones Hx of cancer of uterus Hx of migraine headaches Hx of nephrolithotomy with removal of calculi Hx of neurological disease Hydronephrosis, left Kidney stones (~2008) Left renal stone Menorrhagia (~2011) Migraine headache without aura (~1998) Painful menstrual periods (~2011) Recurrent sinusitis Restless leg syndrome (~2011) S/P extracorporeal shock wave therapy (01/31/23) Surgical History Anesthesia History of lithotripsy [place] teeth extracted Family History Father Prediabetes Hypertension Hyperlipidemia Grandfather Cancer Hypertension Hyperlipidemia Stroke Grandmother Cancer Hyperlipidemia Hypertension Stroke Grandmother Bladder cancer Breast cancer Social History marital status: number of children: 2 household members: children Smoking Status: Never smoker alcohol intake: never caffeine: No Type(s) of exercise: walking frequency: daily duration: > 90 minutes/day Assessment & Plan Post-op Postoperative Procedures: Procedures Operation Date: 04/14/23 21:30 Actual Procedure Side Surgeon p Exploratory Laparotomy, left oopherectomy Susannah Mesa MD Postoperative day: 1 Postoperative status narrative: chronic urinary retention relieved with randall symptomatic anemia sensitivity to narcotic with hypotensive reaction. Postoperative plan narrative: Hct q 8 will likely give additional blood after next lab if indicated continue IV antibiotics for UTI Continue randall for intensive care monitoring of fluids and urinary retention. Plan: Continue ICU Advance diet
[2023-04-15 14:24] LABS: Basophils Absolute Auto 0 /uL (0-100); Basophils Percent Auto 0.3 % (0-2); Eosinophils Absolute Auto 0 /uL (0-450); Lymphocytes Absolute Auto 800 /uL (1100-4500); Lymphocytes Percent Auto 5.9 % (25-40); Mean Corpuscular HGB Conc 33.8 % (30-36); Mean Corpuscular Hemoglobin 29.3 PG (26-34); Mean Corpuscular Volume 86.8 fL (80-100); Monocytes Absolute Auto 1100 /uL (0-900); Monocytes Percent Auto 8.2 % (3-14); Neutrophils Absolute Auto 11300 /uL (1500-7000); Neutrophils Percent Auto 85.6 % (50-75); Platelet Count 157 X10^3/uL (150-400); Red Blood Cell Count 2.08 X10^6/uL (4.0-5.2); Red Cell Distribution Width 14.8 % (11.6-14.8); White Blood Cell Count 13.2 X10^3/uL (4.5-11.0)
[2023-04-15 14:26] LABS: Hemoglobin 6.1 g/dL (12.0-16.0)
[2023-04-15 14:27] LABS: Add Manual Diff / Slide Review NO; Hematocrit 18.1 % (36-46)
[2023-04-15] MEDS: ONDANSETRON 4 MG/2 ML INJ IV (15:09)
--- NOTE | 2023-04-15 15:34 | CM.DANOTE ---
Initial DCP Assessment Note Pt is a 47 yo female, resident of [place], now POD#1 from Exploratory Laparotomy, left oopherectomy r/t ruptured ovarian cyst. PMH includes h/o hydronephrosis and lithotripsy on left kidney. H/o uterine cancer Dr Mesa's note today: randall, anemia- likely need additional blood, IV abx for UTI PCP: Unknown Payer: [facility] Met w/patient and sister Star (visiting from [place]) at bedside, introduced self and role. Patient appears sleepy but A+Ox4. Patient expects to discharge home w/support from family and friends, says she had good support from her community when diagnosed with uterine CA Sister is a BEAN SNAPPER in [place] and asks what wrap around services her [facility] insurance would cover (?) discussed SNF vs Home w/ HH (patient young but does present far below baseline POD1, likely just r/t anemia) Strongly encouraged patient to consider establishing with a PCP. It sounds as though Dr Oliveira has been patient's primary physician since patient was dx with Uterine CA PT would be helpful when patient is not anemic and is feeling better and stronger. Patient may benefit from HH RN (?) depending on needs upon discharge CM team will plan to follow closely TERESO Cobos Discharge Planning/Care Management CM Discharge Assessment Start: 04/15/23 15:32 Freq: Status: Active Protocol: Document 04/15/23 15:32 MARII (Rec: 04/15/23 15:34 MARII [id number]) Discharge Planning Assessment Assigned Entertainment Production Professional TERESO Hedrick DPOA/Assigned Designee Name father Salazar Contact Information [phone] Advance Directives? No Advance Directives on File No History Provided By Patient,Family Member,Medical Record Prior Living Arrangements House Household Members children Type of transporation used prior to Drives own vehicle admit Independent with ADL's Yes Is patient alert and oriented? Yes Patient/Family Preference Home with Home Health Barriers to Discharge No Comment Home w/family to assist as needed , r/o need for HH luster applicator Plan Home Transportation Arrangement Family Referrals Initiated None needed Additional Comment Follow for needs
[2023-04-15] MEDS: cefTRIAXone 1,000 MG in SODIUM CHLORIDE 0.9% 100 ML 200 MG IV (22:35)
[2023-04-15 22:58] LABS: Add Manual Diff / Slide Review NO; Basophils Absolute Auto 0 /uL (0-100); Basophils Percent Auto 0.3 % (0-2); Eosinophils Absolute Auto 0 /uL (0-450); Lymphocytes Absolute Auto 1000 /uL (1100-4500); Lymphocytes Percent Auto 8.4 % (25-40); Mean Corpuscular HGB Conc 34.7 % (30-36); Mean Corpuscular Hemoglobin 29.5 PG (26-34); Monocytes Absolute Auto 800 /uL (0-900); Monocytes Percent Auto 6.4 % (3-14); Neutrophils Absolute Auto 10200 /uL (1500-7000); Neutrophils Percent Auto 84.9 % (50-75); Platelet Count 179 X10^3/uL (150-400); Red Blood Cell Count 2.32 X10^6/uL (4.0-5.2); Red Cell Distribution Width 15.2 % (11.6-14.8)
[2023-04-15 23:00] LABS: Hematocrit 19.8 % (36-46); Hemoglobin 6.9 g/dL (12.0-16.0)
[2023-04-16] VITALS (267 sets, daily range): BP systolic 96–178; BP diastolic 54–84; PULSE 65–107; RESP 12–27; TEMP 36.8–37.2; O2SAT 86–98; BMI 26.9
--- NOTE | 2023-04-16 00:28 | PC.NURSE ---
[id number]--cbc results called to Dr Mesa and orders rec'd; pt to receive 2 PRBCs; pt notified and in agreement
[2023-04-16] MEDS: KETOROLAC 30 MG/ML VIAL 15 MG IV ×4 (04:22→21:58)
[2023-04-16] MEDS: SODIUM CHLORIDE 0.9% 1,000 ML 100 ML IV (06:16)
[2023-04-16] MEDS: PANTOPRAZOLE DR 40 MG TABLET PO (06:55)
--- NOTE | 2023-04-16 07:11 | PC.NURSE ---
Pt has slept well this shift; she was medicated once for pain with good result; pt for discharge at 11 today
--- NOTE | 2023-04-16 07:14 | PC.NURSE ---
platelets were finished up at e beginning of this shift; labs redrawn and called to Dr Mesa; pt received 2 units PRBCs; tolerated well; labs will be rechecked this morning; she was medicated once with Dilauded prn and gets toradol scheduled; she has slept in between care
[2023-04-16 08:04] LABS: Add Manual Diff / Slide Review NO; Basophils Absolute Auto 100 /uL (0-100); Basophils Percent Auto 0.7 % (0-2); Eosinophils Absolute Auto 0 /uL (0-450); Eosinophils Percent Auto 0.1 % (2-4); Hematocrit 25.8 % (36-46); Hemoglobin 9.2 g/dL (12.0-16.0); Lymphocytes Absolute Auto 1600 /uL (1100-4500); Lymphocytes Percent Auto 15.8 % (25-40); Mean Corpuscular HGB Conc 35.5 % (30-36); Mean Corpuscular Hemoglobin 30.1 PG (26-34); Mean Corpuscular Volume 84.7 fL (80-100); Monocytes Absolute Auto 600 /uL (0-900); Monocytes Percent Auto 5.6 % (3-14); Neutrophils Absolute Auto 8000 /uL (1500-7000); Neutrophils Percent Auto 77.8 % (50-75); Platelet Count 153 X10^3/uL (150-400); Red Blood Cell Count 3.04 X10^6/uL (4.0-5.2); Red Cell Distribution Width 14.6 % (11.6-14.8); White Blood Cell Count 10.3 X10^3/uL (4.5-11.0)
[2023-04-16 08:23] LABS: BUN Creatinine Ratio 22.7 (6-22); Blood Urea Nitrogen 15 mg/dL (7-17); Calcium 7.8 mg/dL (8.4-10.2); Carbon Dioxide 23 mmol/L (22-32); Chloride 111 mmol/L (98-107); Estimated Glomerular Filt Rate > 60 mL/min (>60); Glucose 97 mg/dL (70-100); HEMOLYSIS < 15 (0-50); Potassium 3.7 mmol/L (3.4-5.1); Sodium 138 mmol/L (137-145)
[2023-04-16] MEDS: HYDROMORPHONE 2 MG TABLET PO (08:40)
[2023-04-16] MEDS: ONDANSETRON 4 MG/2 ML INJ IV ×2 (08:42→19:56)
--- NOTE | 2023-04-16 10:35 | DI.RAD.S_ITS ---
PROCEDURE: XR CHEST 1V INDICATIONS: SOB TECHNIQUE: One view of the chest was acquired. COMPARISON: [facility], CT, CT ABDOMEN PELVIS W CON, 04/14/2023, 19:40. FINDINGS: Surgical changes and devices: None. Lungs and pleura: Large right pleural effusion obscures the hemidiaphragm, and is associated with atelectasis and or infiltrate. Mediastinum: Heart size enlarged. No significant vascular congestion. Bones and chest wall: No suspicious bony lesions. Overlying soft tissues appear unremarkable. IMPRESSION: Moderate right pleural effusion associated atelectasis and or infiltrate Approved by: Edy Dubon M.D. on 04/16/2023 at 10:30
--- NOTE | 2023-04-16 10:37 | P.PN_ITS ---
Subjective Subjective Date Patient Seen: 04/16/23 Time Patient Seen: 10:38 Interval history: Improved energy, has not gotten out of bed Exam Vital Signs (past 8 hours): - 04/16/23 02:47 04/16/23 02:48 04/16/23 03:00 Temperature 98.9 F 98.9 F Pulse Rate 75 75 Respiratory Rate 14 14 Blood Pressure 101/57 L 101/57 L Pulse Oximetry Oxygen Delivery Method Nasal Cannula 04/16/23 03:03 04/16/23 02:40 04/16/23 02:45 Temperature 98.8 F Pulse Rate 74 77 74 Respiratory Rate 14 15 13 Blood Pressure 108/57 L Pulse Oximetry 94 95 Oxygen Delivery Method 04/16/23 02:50 04/16/23 02:55 04/16/23 03:00 Temperature Pulse Rate 75 78 Respiratory Rate 14 15 Blood Pressure 110/64 Pulse Oximetry 95 95 Oxygen Delivery Method 04/16/23 03:00 04/16/23 03:05 04/16/23 03:10 Temperature Pulse Rate 77 78 77 Respiratory Rate 14 15 14 Blood Pressure Pulse Oximetry 95 95 94 Oxygen Delivery Method 04/16/23 03:15 04/16/23 03:17 04/16/23 03:17 Temperature Pulse Rate 74 75 Respiratory Rate 13 14 Blood Pressure 108/57 L Pulse Oximetry 94 94 Oxygen Delivery Method 04/16/23 03:20 04/16/23 03:25 04/16/23 03:30 Temperature Pulse Rate 74 75 74 Respiratory Rate 13 13 12 Blood Pressure Pulse Oximetry 95 94 95 Oxygen Delivery Method 04/16/23 03:35 04/16/23 03:40 04/16/23 03:45 Temperature Pulse Rate 76 76 76 Respiratory Rate 14 14 13 Blood Pressure Pulse Oximetry 95 94 95 Oxygen Delivery Method 04/16/23 03:50 04/16/23 03:55 04/16/23 04:00 Temperature Pulse Rate 73 85 Respiratory Rate 13 15 Blood Pressure 119/59 L Pulse Oximetry 94 94 Oxygen Delivery Method 04/16/23 04:00 04/16/23 04:05 04/16/23 04:10 Temperature Pulse Rate 85 87 82 Respiratory Rate 14 16 13 Blood Pressure Pulse Oximetry 92 92 90 L Oxygen Delivery Method 04/16/23 04:45 04/16/23 04:15 04/16/23 04:20 Temperature 98.3 F Pulse Rate 84 83 Respiratory Rate 14 15 Blood Pressure Pulse Oximetry 89 L 89 L Oxygen Delivery Method 04/16/23 04:25 04/16/23 04:30 04/16/23 04:35 Temperature Pulse Rate 76 72 71 Respiratory Rate 14 14 13 Blood Pressure Pulse Oximetry 91 93 90 L Oxygen Delivery Method 04/16/23 04:40 04/16/23 04:45 04/16/23 04:50 Temperature Pulse Rate 76 88 69 Respiratory Rate 15 15 14 Blood Pressure Pulse Oximetry 91 96 96 Oxygen Delivery Method 04/16/23 04:55 04/16/23 05:00 04/16/23 05:00 Temperature Pulse Rate 65 65 Respiratory Rate 13 13 Blood Pressure 125/61 Pulse Oximetry 97 98 Oxygen Delivery Method 04/16/23 05:05 04/16/23 05:10 04/16/23 06:00 Temperature 98.5 F Pulse Rate 67 69 Respiratory Rate 13 14 Blood Pressure Pulse Oximetry 97 96 Oxygen Delivery Method 04/16/23 05:15 04/16/23 05:20 04/16/23 05:25 Temperature Pulse Rate 72 77 76 Respiratory Rate 15 14 14 Blood Pressure Pulse Oximetry 96 97 97 Oxygen Delivery Method 04/16/23 05:30 04/16/23 05:35 04/16/23 05:40 Temperature Pulse Rate 75 80 77 Respiratory Rate 15 15 15 Blood Pressure Pulse Oximetry 96 96 96 Oxygen Delivery Method 04/16/23 05:45 04/16/23 05:50 04/16/23 05:55 Temperature Pulse Rate 75 73 82 Respiratory Rate 15 14 16 Blood Pressure Pulse Oximetry 96 95 96 Oxygen Delivery Method 04/16/23 06:00 04/16/23 06:00 04/16/23 06:00 Temperature 98.5 F Pulse Rate 78 73 Respiratory Rate 16 16 Blood Pressure 125/68 125/68 Pulse Oximetry 97 Oxygen Delivery Method 04/16/23 08:30 04/16/23 08:00 04/16/23 08:00 Temperature Pulse Rate 91 H Respiratory Rate 18 Blood Pressure 126/69 Pulse Oximetry 92 Oxygen Delivery Method Room Air 04/16/23 08:05 04/16/23 08:10 04/16/23 08:15 Temperature Pulse Rate 86 88 82 Respiratory Rate 17 18 15 Blood Pressure Pulse Oximetry 92 94 93 Oxygen Delivery Method 04/16/23 08:20 04/16/23 08:25 04/16/23 08:30 Temperature Pulse Rate 102 H 91 H 87 Respiratory Rate 22 15 19 Blood Pressure Pulse Oximetry 94 95 95 Oxygen Delivery Method 04/16/23 08:35 04/16/23 08:40 04/16/23 08:45 Temperature Pulse Rate 89 97 H 96 H Respiratory Rate 16 23 27 H Blood Pressure Pulse Oximetry 96 96 96 Oxygen Delivery Method 04/16/23 08:50 04/16/23 08:55 04/16/23 09:00 Temperature Pulse Rate 97 H 97 H Respiratory Rate 19 20 Blood Pressure 132/65 Pulse Oximetry 95 96 Oxygen Delivery Method 04/16/23 09:00 04/16/23 09:05 04/16/23 09:10 Temperature Pulse Rate 91 H 93 H 101 H Respiratory Rate 19 17 17 Blood Pressure Pulse Oximetry 96 95 95 Oxygen Delivery Method Oxygen Delivery Method Room Air Oxygen Flow Rate 0 Narrative Exam Narrative: skin color improved, subjective SOB, weakness and light headedness is resolving. ABd soft with distention, incisional tenderness. Objective Labs 04/16/23 07:50 04/16/23 07:50 Labs: Laboratory Results - last 24 hr 04/14/23 04/15/23 04/15/23 19:00 14:15 22:33 WBC 13.2 H 12.0 H RBC 2.08 L 2.32 L Hgb 6.1 L* 6.9 L* Hct 18.1 L* 19.8 L* MCV 86.8 85.0 MCH 29.3 29.5 MCHC 33.8 34.7 RDW 14.8 15.2 H Plt Count 157 179 Neut % (Auto) 85.6 H 84.9 H Lymph % (Auto) 5.9 L 8.4 L [place] % (Auto) 8.2 6.4 Eos % (Auto) 0.0 L 0.0 L Baso % (Auto) 0.3 0.3 Neut # (Auto) 57823 H 73386 H Lymph # (Auto) 800 L 1000 L [place] # (Auto) 1100 H 800 Eos # (Auto) 0 0 Baso # (Auto) 0 0 Sodium Potassium Chloride Carbon Dioxide BUN Creatinine Estimated GFR BUN/Creatinine Ratio Glucose Calcium Blood Type O Positive Antibody Screen Negative Crossmatch See Detail 04/16/23 04/16/23 07:50 07:50 WBC 10.3 RBC 3.04 L Hgb 9.2 L Hct 25.8 L MCV 84.7 MCH 30.1 MCHC 35.5 RDW 14.6 Plt Count 153 Neut % (Auto) 77.8 H Lymph % (Auto) 15.8 L [place] % (Auto) 5.6 Eos % (Auto) 0.1 L Baso % (Auto) 0.7 Neut # (Auto) 8000 H Lymph # (Auto) 1600 [place] # (Auto) 600 Eos # (Auto) 0 Baso # (Auto) 100 Sodium 138 Potassium 3.7 Chloride 111 H Carbon Dioxide 23 BUN 15 Creatinine 0.66 Estimated GFR > 60 BUN/Creatinine Ratio 22.7 H Glucose 97 Calcium 7.8 L Blood Type Antibody Screen Crossmatch [facility] Medical History Anxiety and depression (~1997) Chronic back pain (~2000) Fibromyalgia (~2011) History of depression History of kidney stones Hx of cancer of uterus Hx of migraine headaches Hx of nephrolithotomy with removal of calculi Hx of neurological disease Hydronephrosis, left Kidney stones (~2008) Left renal stone Menorrhagia (~2011) Migraine headache without aura (~1998) Painful menstrual periods (~2011) Recurrent sinusitis Restless leg syndrome (~2011) S/P extracorporeal shock wave therapy (01/31/23) Surgical History Anesthesia History of lithotripsy [place] teeth extracted Family History Father Prediabetes Hypertension Hyperlipidemia Grandfather Cancer Hypertension Hyperlipidemia Stroke Grandmother Cancer Hyperlipidemia Hypertension Stroke Grandmother Bladder cancer Breast cancer Social History marital status: number of children: 2 household members: children Smoking Status: Never smoker alcohol intake: never caffeine: No Type(s) of exercise: walking frequency: daily duration: > 90 minutes/day Assessment & Plan Post-op Postoperative Procedures: Procedures Operation Date: 04/14/23 21:30 Actual Procedure Side Surgeon p Exploratory Laparotomy, left oopherectomy Susannah Mesa MD Postoperative day: 2 Postoperative status: urinary retention Postoperative status narrative: abdominal distension either represents continued bleeding post op vs partial ileus from the blood irritation and anesthetic. No active bleeding of concern today. Urinary retention with randall in place. Has appointment with Dr. Walkre on Monday regarding renal stone, stent, hydronephrosis and new urinary retention. Postoperative plan narrative: Saline lock IVF continue daily labs PT consult for mobilization continue antibiotics for now in regards to Urinary issues and touch base with Dr. Walker when he returns on Monday.
--- NOTE | 2023-04-16 10:59 | PM.CALLCOV.1 ---
Call Coverage Note Note Date of Patient Contact: 04/16/23 Time of Patient Contact: 10:59 Narrative of Care Provided: persistent Right pleural effusion for the traumatic events of Monday. Should resolve
[2023-04-16] MEDS: HYDROMORPHONE 0.5 MG INJ IV (11:18)
[2023-04-16] MEDS: PRENATAL VIT,CALC/IRON/FOLIC 1 TABLET 1 TAB PO (11:22)
--- NOTE | 2023-04-16 12:45 | PT.IIE ---
Surgery Performed Operation Date: 04/14/23 21:30 Actual Procedures p Exploratory Laparotomy, left oopherectomy - Susannah Mesa MD Surgical History (Last Reviewed 04/14/23 @ 21:23 by Susannah Mesa MD) Anesthesia History of lithotripsy [place] teeth extracted Medical History (Last Reviewed 04/14/23 @ 21:23 by Susannah Mesa MD) Anxiety and depression (~1997) Chronic back pain (~2000) Fibromyalgia (~2011) History of depression History of kidney stones Hx of cancer of uterus Hx of migraine headaches Hx of nephrolithotomy with removal of calculi Hx of neurological disease Hydronephrosis, left Kidney stones (~2008) Left renal stone Menorrhagia (~2011) Migraine headache without aura (~1998) Painful menstrual periods (~2011) Recurrent sinusitis Restless leg syndrome (~2011) S/P extracorporeal shock wave therapy (01/31/23) Physical Therapy Inpatient Evaluation/Re-Eval M1 PT/OT-IP Prior Functional Status Start: 04/16/23 13:14 Freq: NEEDED Status: Active Protocol: Document 04/16/23 13:14 AB (Rec: 04/16/23 13:47 AB [id number]) Medical Review Prior Functional Status Medical History Reviewed Yes Communication Able to express all needs. Mobility and Gait IND Activities of Daily Living and IADL's IND Prior Functional Level (Other details) Comorbidities: fibromyalgia and MS Social History Household Members children Living Arrangements House Number of Floors (Floors) One Floor Number of Stairs To Enter/Railing? 2 EVITA with left hand rail; 6 step followed by landing then 6 more steps to second floor Home Environment Standard Height Toilet,Tub/ Shower Home Equipment Hand Held Shower Additional Social History Comment Pt reports she is not currently working and her youngest daughter left for college earlier this month. She states she has a good support system that can help her as needed at home. M2 PT-IP Current Condition Start: 04/16/23 13:14 Freq: NEEDED Status: Active Protocol: Document 04/16/23 13:14 AB (Rec: 04/16/23 13:47 AB [id number]) Physical Therapy Current Condition Current Condition Evaluation Date 04/16/23 Treatment Diagnosis S/p left oophorectomy and exploratory laparotomy Onset Date 04/14/23 M3 PT-IP Subjective Start: 04/16/23 13:14 Freq: NEEDED Status: Active Protocol: Document 04/16/23 13:14 AB (Rec: 04/16/23 13:47 AB [id number]) Subjective Physical Therapy Visit Type Type Initial Evaluation Visit Start Time 12:45 Visit Stop Time 13:11 Total Visit Minutes 26 Notes Pt presents semi supine in bed with sister present. She is agreeable to PT eval after introduction. Number of STAFF RESEARCH SCIENTIST Visits 0 Physical Therapy Visit Comments Patient Comments Pt reports she is in a lot of pain. She reports feeling like something is ripping inside of her whenever she moves. Patient Goals To be able to go home. Therapy Pain Assessment Pain When Pain Assessed During Mobility Pain Present Pain Present Pain Reported Location Lower Abdomen Intensity 10 Scale Used Numeric (0 - 10) Description Pulling,Sharp Pain Behaviors Facial Grimacing,Holding Area, Moaning,Wincing Pain Management Techniques Re-positioning M4 PT-IP Mobility and Gait Start: 04/16/23 13:14 Freq: NEEDED Status: Active Protocol: Document 04/16/23 13:14 AB (Rec: 04/16/23 13:47 AB [id number]) PT-Bed Mobility Assessment Rolling Type of Rolling Roll to Right,Roll to Left Level of Assist Standby Assistance PT-Transfer Assessment Comments Mobility Comments Unable to perform due to significant pain levels. Gait Assessment Comments Gait Comments Unable to assess due to significant pain levels Stair Climbing Assessment Comments Stair Climbing Comments Unable to asses due to signficiant pain levels PT-Balance Assessment Comments Other Balance Tests/Deviations/Treatment Unable to asses due to : signficiant pain levels M5 PT-IP Objective Assessments Start: 04/16/23 13:14 Freq: NEEDED Status: Active Protocol: Document 04/16/23 13:14 AB (Rec: 04/16/23 13:47 AB [id number]) Orientation Orientation/Cognition Level of Alertness Alert Orientation Name,Date,Place,Situation Language Function Ability No Deficits Noted Safety Awareness Understands Safety Issues Memory Description No Deficits Noted Gross Range of Motion Upper Extremity ROM Assessment Within Functional Limits Lower Extremity ROM Assessment Within Functional Limits Strength Upper Extremity Strength Assessment Within Functional Limits Lower Extremity Strength Assessment Bilaterally Impaired Comments Strength Comments Tested in supine due to pain limitation Coordination Assessment Gross Coordination Gross Coordination WNL Sensation Assessment Sensation Gross Sensation WNL Muscle Tone Muscle Tone WNL Yes M6 PT-IP Treatment Start: 04/16/23 13:14 Freq: NEEDED Status: Active Protocol: Document 04/16/23 13:14 AB (Rec: 04/16/23 13:47 AB [id number]) Physical Therapy Treatment Education Education Provided Precautions,Safety Brace Education Patient Other Treatments Other Treatment Performed Pt educated findings and plans for furture PT sessions. At end of session, the pt returned to comfortable position in bed with all needs met and call light placed within reach. RN was notified of findings. M7 PT-IP Assessment and Plan Start: 04/16/23 13:14 Freq: NEEDED Status: Active Protocol: Document 04/16/23 13:14 AB (Rec: 04/16/23 13:47 AB [id number]) PT Summary Assessment and Plan Potential Rehabilitation Potential Excellent Status of Condition at Evaluation Stable Summary Impairments Pain,Strength,Bed Mobility, Gait,Activity Tolerance Assessment Summary Seema Torres is a 47 year old female who is s/p exploratory laparotomy and left oophorectomy performed on 04/14. Today's PT evaluation revealed functional mobility deficits largely due to pain symptoms. The pt was able to roll left and right without use of bed rails, however she is unable to perform supine to sit, or any further mobility, due to pain. She was educated on using log roll technique in order to avoid exacerbating her pain symptoms in the furture when attempting supine to sit. She would benefit from skilled PT to improve strength deficits and to improve her functional mobility in order to return to her highest level of function . The pt's rehab potential is good based on her PLOF, motivation and good support system. However, since transfers and gait were not assessed, the pt requires further assessement for DME needs upon discharge. Goals Bed Mobility Goal Independent Transfer Goal Independent Gait Goal Independent Gait Distance 150 Days to Meet Goals 5 Frequency of Treatment Frequency Of Treatment Once a Day Treatment Plan Physical Therapy Treatment Plan Bed Mobility Training,Transfer Training,Gait Training, Therapeutic Exercise,Balance Retraining,Post Op Education, Discharge Planning,Hot or Cold Pack,Neuromuscular Re-ed Other Recommendations and Next Treatment Practice log roll technique, Focus assess ability to perform STS, transfers, gait and stairs as able. Precautions Abdominal Surgery Precautions Gait Belt above Incisional Area Recommendations To Nursing Amount of Assist Needed 1 Person Assist Discharge Recommendations PT Discharge Recommendations Home,Home Health Other Discharge Recommendations Subject to change based on pt' s progress. Equipment Needed for Home Before TBD based on pt's progress. Discharge Transportation Needs at Discharge Private Vehicle
[2023-04-16] MEDS: TRAMADOL 50 MG TABLET 100 MG PO (13:16)
--- NOTE | 2023-04-16 18:13 | PC.NURSE ---
Day shift: Pt A&O, reports fatigue and inability to sleep last night. Pt tolerated small amount of breakfast, reports mild nausea, reports pain, treated as ordered (See MAR). Pt reports SOB, chest tightness. Pt assessed, O2 saturation 98% on RA, lungs clear, NSR on telemetry, repositioned with pt reporting some relief. Dr. Mesa notified. CXR obtained. Pt educated on incentive spirometry, turning, deep breathing, and coughing. Pt verbalizes understanding. Pt attempted to dangle at bedside with physical therapy after medicated for pain. Pt unable to dangle d/t pain with movement. Pt agreeable to try again tomorrow morning. Pt family member assisting with bed bath. Call light within reach, bed alarm active, bed locked and in low position. Care ongoing.
[2023-04-16] MEDS: HYDROMORPHONE 1 MG INJ IV (19:56)
[2023-04-16] MEDS: SODIUM CHLORIDE 0.9% FLUSH 10 ML IV (19:57)
[2023-04-16] MEDS: CIPROFLOXACIN 250 MG TABLET 500 MG PO (20:40)
[2023-04-17] VITALS (209 sets, daily range): BP systolic 125–198; BP diastolic 65–102; PULSE 54–97; RESP 10–26; TEMP 36.6–36.9; O2SAT 87–100
[2023-04-17] MEDS: KETOROLAC 30 MG/ML VIAL 15 MG IV ×3 (04:50→20:45)
[2023-04-17] MEDS: SODIUM CHLORIDE 0.9% FLUSH 10 ML IV ×3 (04:50→20:46)
[2023-04-17 05:11] LABS: Add Manual Diff / Slide Review NO; Basophils Absolute Auto 100 /uL (0-100); Basophils Percent Auto 0.7 % (0-2); Eosinophils Absolute Auto 0 /uL (0-450); Eosinophils Percent Auto 0.2 % (2-4); Hematocrit 25.3 % (36-46); Hemoglobin 8.8 g/dL (12.0-16.0); Lymphocytes Absolute Auto 1700 /uL (1100-4500); Lymphocytes Percent Auto 21.7 % (25-40); Mean Corpuscular Hemoglobin 29.9 PG (26-34); Mean Corpuscular Volume 85.4 fL (80-100); Monocytes Absolute Auto 500 /uL (0-900); Neutrophils Absolute Auto 5700 /uL (1500-7000); Neutrophils Percent Auto 71.4 % (50-75); Platelet Count 150 X10^3/uL (150-400); Red Blood Cell Count 2.96 X10^6/uL (4.0-5.2); Red Cell Distribution Width 14.5 % (11.6-14.8); White Blood Cell Count 7.9 X10^3/uL (4.5-11.0)
[2023-04-17 05:25] LABS: BUN Creatinine Ratio 15.6 (6-22); Blood Urea Nitrogen 10 mg/dL (7-17); Calcium 8.1 mg/dL (8.4-10.2); Carbon Dioxide 27 mmol/L (22-32); Chloride 106 mmol/L (98-107); Estimated Glomerular Filt Rate > 60 mL/min (>60); Glucose 90 mg/dL (70-100); HEMOLYSIS 18 (0-50); Potassium 3.7 mmol/L (3.4-5.1); Sodium 136 mmol/L (137-145)
[2023-04-17] MEDS: HYDROMORPHONE 0.5 MG INJ IV (05:57)
--- NOTE | 2023-04-17 06:22 | PC.NURSE ---
Evs Tech Note-Patients lower abdominal pain controlled with IV Dilaudid prn and scheduled IV Toradol, IV Zofran given once for mild nausea without emesis. Placed on 2L NC while sleeping d/t desatting to 86%, > 94% while awake, LS CTA, encouraging C&DB and I.S. use. no change to marked area on abdominal drsg. UOP 1150ml. VSS.
[2023-04-17] MEDS: CIPROFLOXACIN 250 MG TABLET 500 MG PO ×2 (07:44→20:45)
[2023-04-17] MEDS: PANTOPRAZOLE DR 40 MG TABLET PO (07:44)
--- NOTE | 2023-04-17 08:04 | PT.IPTN ---
Surgery Performed Operation Date: 04/14/23 21:30 Actual Procedures p Exploratory Laparotomy, left oopherectomy - Susannah MD [facility] Physical Therapy Treatment Note M2 PT-IP Current Condition Start: 04/16/23 13:14 Freq: NEEDED Status: Active Protocol: Document 04/17/23 07:45 SP (Rec: 04/17/23 10:46 SP [id number]) Physical Therapy Current Condition Current Condition Evaluation Date 04/16/23 Treatment Diagnosis S/p left oophorectomy and exploratory laparotomy Onset Date 04/14/23 M3 PT-IP Subjective Start: 04/16/23 13:14 Freq: NEEDED Status: Active Protocol: Document 04/17/23 07:45 SP (Rec: 04/17/23 10:46 SP [id number]) Subjective Physical Therapy Visit Type Type Treatment Note Visit Start Time 07:45 Visit Stop Time 08:04 Total Visit Minutes 19 Notes Vitals taken during tx. Supine: LUE BP automated: 135/ 82 HR 87 SaO2 94% onRA. Post SPT to chair: 135/82 HR 82 SaO2 96% on RA with reports little dizzy with palor color in face. Number of GYMNASTIC COACH Visits 0 Physical Therapy Visit Comments Patient Comments Pt agreeable to working with GYMNASTIC COACH. Patient Goals To be able to go home. Therapy Pain Assessment Pain When Pain Assessed During Mobility Pain Present Pain Present Pain Reported Location Lower Abdomen Intensity 7 Scale Used Numeric (0 - 10) Description Cramping,Spasm,With Movement Pain Behaviors Facial Grimacing,Guarding, Holding Area Pain Management Techniques Distraction,Modification of Treatment,Re-positioning, Timing of Activity with Medications M4 PT-IP Mobility and Gait Start: 04/16/23 13:14 Freq: NEEDED Status: Active Protocol: Document 04/17/23 07:45 SP (Rec: 04/17/23 10:46 SP [id number]) PT-Bed Mobility Assessment Rolling Type of Rolling Log Rolling,Roll to Right Level of Assist Standby Assistance Supine to Sit Supine to Sit Standby Assistance,Contact Guard Assistance Scooting Scooting to Edge of Bed Standby Assistance PT-Transfer Assessment Sit to and From Stand Sit to and from Stand Contact Guard Assistance,1 Person Assistance,Use of Upper Extremities Equipment Transfer Assistive Device Gait Belt,Front Wheeled Walker Orthotic/Prosthetic Devices or Brace: No Transfers Transfer Destination Chair Transfer Technique SPT to chair, amb in room w/ FWW Comments Mobility Comments Nurse in room dispensing meds when arrived. Pt completed log roll R, R SL>sit use BUEs on bed, scoot to EOB self close SBA. GYMNASTIC COACH donned gait belt danyell on chest for safety 1st time getting out of bed. STS from bed>FWW CGA, cued push from bed, heavy UE WB. SPT bed >chair, cued full FWW positioning and reach back slow descent. Sit EOB, reported dizziness, stable vitals. Ed slow breath and continue use inspirometer, verbalized got up to 2000. STS from chair, short distance gait w/ FWW to bench<>chair approx 20 ft with 2 brief stop stand rests to breath/relax shlds, slow pacing/decreased stride and foot clearance and heavy WB BUEs on FWW at this time due to decreased activity tolerance and abdominal pain. She returned to chair CG/ close SBA, GYMNASTIC COACH managed Tele monitoring cord. Pt was up in chair with all needs in reach including call light. Pt unable to complete further distance gait and stair mgt at this time to assess strength to enter home. Will continue to assess progress. Gait Assessment Gait Gait Assistance Required: Standby Assistance,Contact Guard Assist,1 Person Assist Distance (Feet) 20 Able to Maintain Weight Bearing Status Yes During Gait Assistive Devices Assistive Device Gait Belt,Front Wheeled Walker Gait Deviations General Gait Pattern Antalgic,Decreased Stride Length,Decreased Feet Clearance,Narrow Based Gait, Step-to Gait Factors Limiting Gait Function Factors Limiting Gait Function Decreased Activity Tolerance, Decreased Strength,Limited Range of Motion,Pain,Poor Safety Awareness Comments Gait Comments see mobility comments Stair Climbing Assessment Comments Stair Climbing Comments Unable to assess at this time due to pain and decreased activity tolerance. PT-Balance Assessment Sitting Balance and Reactions Static Sitting Balance Ability Good Dynamic Sitting Balance Ability Fair Standing Balance and Reactions Static Standing Balance Ability Good Dynamic Standing Balance Ability Fair Device Used FWW Comments Other Balance Tests/Deviations/Treatment Unable to asses due to : signficiant pain levels M5 PT-IP Objective Assessments Start: 04/16/23 13:14 Freq: NEEDED Status: Active Protocol: Document 04/16/23 13:14 AB (Rec: 04/16/23 13:47 AB [id number]) Orientation Orientation/Cognition Level of Alertness Alert Orientation Name,Date,Place,Situation Language Function Ability No Deficits Noted Safety Awareness Understands Safety Issues Memory Description No Deficits Noted Gross Range of Motion Upper Extremity ROM Assessment Within Functional Limits Lower Extremity ROM Assessment Within Functional Limits Strength Upper Extremity Strength Assessment Within Functional Limits Lower Extremity Strength Assessment Bilaterally Impaired Comments Strength Comments Tested in supine due to pain limitation Coordination Assessment Gross Coordination Gross Coordination WNL Sensation Assessment Sensation Gross Sensation WNL Muscle Tone Muscle Tone WNL Yes M6 PT-IP Treatment Start: 04/16/23 13:14 Freq: NEEDED Status: Active Protocol: Document 04/17/23 07:45 SP (Rec: 04/17/23 10:46 SP [id number]) Physical Therapy Treatment Education Education Provided Precautions,Safety Other Treatments Other Treatment Performed Ed use of breath and slight abdominal engagement and BUE proper positioning during activity to support mobility. M7 PT-IP Assessment and Plan Start: 04/16/23 13:14 Freq: NEEDED Status: Active Protocol: Document 04/17/23 07:45 SP (Rec: 04/17/23 10:46 SP [id number]) PT Summary Assessment and Plan Potential Rehabilitation Potential Excellent Status of Condition at Evaluation Stable Summary Impairments Pain,Strength,Bed Mobility, Gait,Activity Tolerance Progress Towards Goals Slow Progress due to Pain,Slow Progress due to Activity Tolerance Assessment Summary Pt improves mobility this tx, bed mob CG/SBA,CGA during STS and SPT to chair w/FWW. She completed short distance gait w/FWW pain limits her mobility tolerance, slight lightheadeness but stable vitals. Ecouraged pt to mobilize with nursing in room w/ FWW for now. She would benefit from continued skilled PT to progress mobility, assess stairs mgt and if can mobilize without AD toward PLOF. Will continue assess progress. Goals Bed Mobility Goal Independent Transfer Goal Independent Gait Goal Independent Gait Distance 150 Days to Meet Goals 5 Frequency of Treatment Frequency Of Treatment Once a Day Treatment Plan Physical Therapy Treatment Plan Bed Mobility Training,Transfer Training,Gait Training, Therapeutic Exercise,Balance Retraining,Post Op Education, Discharge Planning,Hot or Cold Pack,Neuromuscular Re-ed Other Recommendations and Next Treatment Transfers w/FWW trial without Focus AD toward PLOF or may need one for home, stair mgt 2 enter home L HR, 6+6 stairs. Precautions Abdominal Surgery Precautions Gait Belt above Incisional Area Recommendations To Nursing Amount of Assist Needed Standby Assistance,1 Person Assist Discharge Recommendations PT Discharge Recommendations Home,Home Health Equipment Needed for Home Before Possible FWW, depending on Discharge progress Transportation Needs at Discharge Private Vehicle
[2023-04-17] MEDS: PRENATAL VIT,CALC/IRON/FOLIC 1 TABLET 1 TAB PO (08:58)
[2023-04-17] MEDS: HYDROMORPHONE 1 MG INJ IV ×2 (08:59→20:45)
--- NOTE | 2023-04-17 11:12 | PM.PNPO.1 ---
Subjective Subjective Date Patient Seen: 04/17/23 Time Patient Seen: 11:13 Interval history: Feeling better, has a pulling sensation in right groin. Still weak Exam Vital Signs (past 8 hours): - 04/17/23 05:00 04/17/23 03:15 04/17/23 03:20 Temperature Pulse Rate 60 61 Respiratory Rate 13 11 L Blood Pressure Pulse Oximetry 95 95 Oxygen Delivery Method Nasal Cannula Oxygen Flow Rate 04/17/23 03:25 04/17/23 03:30 04/17/23 03:35 Temperature Pulse Rate 61 62 73 Respiratory Rate 12 12 15 Blood Pressure Pulse Oximetry 95 95 95 Oxygen Delivery Method Oxygen Flow Rate 04/17/23 03:40 04/17/23 03:45 04/17/23 03:50 Temperature Pulse Rate 75 74 73 Respiratory Rate 15 14 15 Blood Pressure Pulse Oximetry 95 95 95 Oxygen Delivery Method Oxygen Flow Rate 04/17/23 03:55 04/17/23 04:00 04/17/23 04:05 Temperature Pulse Rate 69 72 64 Respiratory Rate 14 14 12 Blood Pressure Pulse Oximetry 96 96 95 Oxygen Delivery Method Oxygen Flow Rate 04/17/23 04:10 04/17/23 04:15 04/17/23 04:20 Temperature Pulse Rate 63 63 64 Respiratory Rate 12 12 13 Blood Pressure Pulse Oximetry 95 95 92 Oxygen Delivery Method Oxygen Flow Rate 04/17/23 04:25 04/17/23 04:30 04/17/23 04:35 Temperature Pulse Rate 64 62 61 Respiratory Rate 12 12 11 L Blood Pressure Pulse Oximetry 92 92 95 Oxygen Delivery Method Oxygen Flow Rate 04/17/23 04:40 04/17/23 04:45 04/17/23 04:50 Temperature Pulse Rate 60 61 66 Respiratory Rate 12 13 15 Blood Pressure Pulse Oximetry 96 96 96 Oxygen Delivery Method Oxygen Flow Rate 04/17/23 04:55 04/17/23 05:00 04/17/23 05:05 Temperature Pulse Rate 78 74 66 Respiratory Rate 13 14 12 Blood Pressure Pulse Oximetry 96 96 96 Oxygen Delivery Method Oxygen Flow Rate 04/17/23 05:10 04/17/23 05:15 04/17/23 05:20 Temperature Pulse Rate 60 63 59 L Respiratory Rate 14 18 15 Blood Pressure Pulse Oximetry 96 95 95 Oxygen Delivery Method Oxygen Flow Rate 04/17/23 05:25 04/17/23 05:30 04/17/23 05:35 Temperature Pulse Rate 72 67 63 Respiratory Rate 14 14 15 Blood Pressure Pulse Oximetry 94 92 90 L Oxygen Delivery Method Oxygen Flow Rate 04/17/23 05:40 04/17/23 05:45 04/17/23 05:50 Temperature Pulse Rate 64 64 64 Respiratory Rate 13 14 13 Blood Pressure Pulse Oximetry 90 L 90 L 90 L Oxygen Delivery Method Oxygen Flow Rate 04/17/23 05:55 04/17/23 06:00 04/17/23 06:01 Temperature 98.2 F Pulse Rate 80 66 Respiratory Rate 13 11 L Blood Pressure 133/75 Pulse Oximetry 96 97 Oxygen Delivery Method Oxygen Flow Rate 04/17/23 06:01 04/17/23 09:00 04/17/23 06:20 Temperature Pulse Rate 74 60 Respiratory Rate 14 10 L Blood Pressure Pulse Oximetry 96 94 Oxygen Delivery Method Nasal Cannula Oxygen Flow Rate 1 04/17/23 06:25 04/17/23 06:30 04/17/23 06:35 Temperature Pulse Rate 63 69 62 Respiratory Rate 11 L 12 11 L Blood Pressure Pulse Oximetry 94 93 94 Oxygen Delivery Method Oxygen Flow Rate 04/17/23 06:40 04/17/23 06:45 04/17/23 06:50 Temperature Pulse Rate 67 64 63 Respiratory Rate 12 12 11 L Blood Pressure Pulse Oximetry 94 94 94 Oxygen Delivery Method Oxygen Flow Rate 04/17/23 06:55 04/17/23 07:00 04/17/23 07:05 Temperature Pulse Rate 60 60 59 L Respiratory Rate 10 L 12 11 L Blood Pressure Pulse Oximetry 94 94 95 Oxygen Delivery Method Oxygen Flow Rate 04/17/23 07:10 04/17/23 07:15 04/17/23 07:20 Temperature Pulse Rate 59 L 60 60 Respiratory Rate 12 11 L 11 L Blood Pressure Pulse Oximetry 94 94 94 Oxygen Delivery Method Oxygen Flow Rate 04/17/23 07:25 04/17/23 07:30 04/17/23 07:35 Temperature Pulse Rate 61 65 63 Respiratory Rate 11 L 12 12 Blood Pressure Pulse Oximetry 94 95 95 Oxygen Delivery Method Oxygen Flow Rate 04/17/23 07:40 04/17/23 07:45 04/17/23 07:48 Temperature Pulse Rate 71 66 Respiratory Rate 14 13 Blood Pressure 136/76 Pulse Oximetry 91 94 Oxygen Delivery Method Oxygen Flow Rate 04/17/23 07:48 04/17/23 07:50 04/17/23 07:55 Temperature Pulse Rate 84 85 94 H Respiratory Rate 18 17 23 Blood Pressure Pulse Oximetry 94 Oxygen Delivery Method Oxygen Flow Rate 04/17/23 07:56 04/17/23 07:56 04/17/23 08:00 Temperature Pulse Rate 82 87 Respiratory Rate 23 26 H Blood Pressure 135/82 Pulse Oximetry 93 Oxygen Delivery Method Oxygen Flow Rate 04/17/23 08:05 04/17/23 08:10 04/17/23 08:15 Temperature Pulse Rate 67 70 83 Respiratory Rate 17 17 17 Blood Pressure Pulse Oximetry 95 93 Oxygen Delivery Method Oxygen Flow Rate 04/17/23 08:20 04/17/23 08:25 04/17/23 08:30 Temperature Pulse Rate 77 94 H 84 Respiratory Rate 18 15 18 Blood Pressure Pulse Oximetry Oxygen Delivery Method Oxygen Flow Rate 04/17/23 08:35 04/17/23 08:40 04/17/23 08:45 Temperature Pulse Rate 87 97 H 91 H Respiratory Rate 17 14 16 Blood Pressure Pulse Oximetry Oxygen Delivery Method Oxygen Flow Rate 04/17/23 08:50 04/17/23 08:55 04/17/23 09:00 Temperature Pulse Rate 92 H 81 86 Respiratory Rate 18 16 19 Blood Pressure Pulse Oximetry Oxygen Delivery Method Oxygen Flow Rate 04/17/23 09:05 04/17/23 09:10 04/17/23 09:15 Temperature Pulse Rate 80 89 84 Respiratory Rate 23 22 15 Blood Pressure Pulse Oximetry 92 Oxygen Delivery Method Oxygen Flow Rate 04/17/23 09:20 04/17/23 09:25 04/17/23 09:30 Temperature Pulse Rate 65 64 76 Respiratory Rate 12 13 12 Blood Pressure Pulse Oximetry 95 93 96 Oxygen Delivery Method Oxygen Flow Rate 04/17/23 09:35 04/17/23 09:40 04/17/23 09:45 Temperature Pulse Rate 65 74 63 Respiratory Rate 12 13 12 Blood Pressure Pulse Oximetry 95 94 94 Oxygen Delivery Method Oxygen Flow Rate 04/17/23 09:50 04/17/23 09:55 04/17/23 10:00 Temperature Pulse Rate 67 67 64 Respiratory Rate 12 11 L 11 L Blood Pressure Pulse Oximetry 94 94 94 Oxygen Delivery Method Oxygen Flow Rate 04/17/23 10:05 Temperature Pulse Rate 64 Respiratory Rate 11 L Blood Pressure Pulse Oximetry 94 Oxygen Delivery Method Oxygen Flow Rate Oxygen Delivery Method Nasal Cannula Oxygen Flow Rate 1 Narrative Exam Narrative: Abdomen is soft, pulling sensation likely muscle spasm. randall remains for urinary retention. Objective Labs 04/17/23 05:00 04/17/23 05:00 Labs: Laboratory Results - last 24 hr 04/17/23 04/17/23 05:00 05:00 WBC 7.9 RBC 2.96 L Hgb 8.8 L Hct 25.3 L MCV 85.4 MCH 29.9 MCHC 35.0 RDW 14.5 Plt Count 150 Neut % (Auto) 71.4 Lymph % (Auto) 21.7 L [place] % (Auto) 6.0 Eos % (Auto) 0.2 L Baso % (Auto) 0.7 Neut # (Auto) 5700 Lymph # (Auto) 1700 [place] # (Auto) 500 Eos # (Auto) 0 Baso # (Auto) 100 Sodium 136 L Potassium 3.7 Chloride 106 Carbon Dioxide 27 BUN 10 Creatinine 0.64 Estimated GFR > 60 BUN/Creatinine Ratio 15.6 Glucose 90 Calcium 8.1 L PFSH Medical History Anxiety and depression (~1997) Chronic back pain (~2000) Fibromyalgia (~2011) History of depression History of kidney stones Hx of cancer of uterus Hx of migraine headaches Hx of nephrolithotomy with removal of calculi Hx of neurological disease Hydronephrosis, left Kidney stones (~2008) Left renal stone Menorrhagia (~2011) Migraine headache without aura (~1998) Painful menstrual periods (~2011) Recurrent sinusitis Restless leg syndrome (~2011) S/P extracorporeal shock wave therapy (01/31/23) Surgical History Anesthesia History of lithotripsy [place] teeth extracted Family History Father Prediabetes Hypertension Hyperlipidemia Grandfather Cancer Hypertension Hyperlipidemia Stroke Grandmother Cancer Hyperlipidemia Hypertension Stroke Grandmother Bladder cancer Breast cancer Social History marital status: number of children: 2 household members: children Smoking Status: Never smoker alcohol intake: never caffeine: No Type(s) of exercise: walking frequency: daily duration: > 90 minutes/day Assessment & Plan Post-op Postoperative Procedures: Procedures Operation Date: 04/14/23 21:30 Actual Procedure Side Surgeon p Exploratory Laparotomy, left oopherectomy Susannah Mesa MD Postoperative status: doing well and urinary retention Postoperative plan narrative: progressing back to baseline, still weak with underlying Dx of MS likely worse with the stress. Plan: Down grade to acute care PT to continue Have Urology weigh in on randall and follow up of stent. Time Spent With Patient Time with patient: 15-24 minutes
[2023-04-17] MEDS: TRAMADOL 50 MG TABLET 100 MG PO ×2 (12:09→17:45)
--- NOTE | 2023-04-17 13:48 | CM.DPC ---
DCP Cont: Per MD, pt still has low H&H even after 6 units of blood while admitted and consulting Surgeon to determine if further intervention needed and remains on 1-2LO2 and not yet medically stable to discharge today. Per HOLLOCK MAKER, pt making progress and able to participate but still needs to do stairs and recommending home with assist and HH. Plan: SW to follow for further discussion with pt tomorrow regarding HH recommendations and any further identified discharge planning needs. TERESO Larsen
[2023-04-17] MEDS: HYDROMORPHONE 2 MG TABLET PO ×3 (14:05→22:54)
[2023-04-17] MEDS: ACETAMINOPHEN 325 MG TABLET 650 MG PO ×2 (15:48→22:54)
--- NOTE | 2023-04-17 17:32 | PC.NURSE ---
Day shift: Pt up with physical therapy at start of shift, able to ambulate in room from bed to bench and back to bed. Pt up in chair for breakfast. Pt c/o pain, medicated as ordered (See MAR). Pt continued to report pain, medicated as ordered (see MAR). Pt encouraged to reposition frequently, to use incentive spirometry, and to splint abdomen. Pt able to verbalize understanding. VSS. Downgraded to floor care. Pt declined additional ambulation or getting out of bed at this time due to pain. Pt reports pain at dinner. Medicated as ordered (see MAR). Pt would like to hold off on IV pain medication until HS. Pt states she is tolerating pain at this time with ice pack, PO PRNs, splinting with movement, and distraction. Bed alarm active, bed locked and in low position. Call light within reach and pt able to make needs known. Care ongoing.
[2023-04-17] MEDS: ONDANSETRON 4 MG/2 ML INJ IV (22:55)
[2023-04-17] MEDS: METOPROLOL TARTRATE 5 MG/5 ML INJ IV (22:55)
[2023-04-18] VITALS (131 sets, daily range): BP systolic 154–193; BP diastolic 76–94; PULSE 52–80; RESP 17–20; TEMP 36.3–37.1; O2SAT 90–100
[2023-04-18] MEDS: lisinopriL 20 MG TABLET PO ×2 (00:39→10:33)
[2023-04-18] MEDS: HYDROMORPHONE 2 MG TABLET PO ×3 (05:38→20:55)
[2023-04-18] MEDS: KETOROLAC 30 MG/ML VIAL 15 MG IV (05:38)
[2023-04-18] MEDS: ONDANSETRON 4 MG/2 ML INJ IV ×2 (05:39→20:55)
[2023-04-18] MEDS: ACETAMINOPHEN 325 MG TABLET 650 MG PO ×3 (05:39→19:47)
[2023-04-18] MEDS: PANTOPRAZOLE DR 40 MG TABLET PO (05:39)
[2023-04-18] MEDS: TRAMADOL 50 MG TABLET 100 MG PO ×2 (06:38→23:32)
[2023-04-18] MEDS: SODIUM CHLORIDE 0.9% FLUSH 10 ML IV ×2 (08:18→20:01)
[2023-04-18] MEDS: PRENATAL VIT,CALC/IRON/FOLIC 1 TABLET 1 TAB PO (08:18)
[2023-04-18] MEDS: CIPROFLOXACIN 250 MG TABLET 500 MG PO ×2 (08:27→20:00)
[2023-04-18] MEDS: METOPROLOL TARTRATE 5 MG/5 ML INJ IV (08:27)
--- NOTE | 2023-04-18 10:55 | CM.DPC ---
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 Pt worked with PT this afternoon and was able to do the stairs. Pt states she spoke to her neighbor who is a LOTTERY OFFICE MANAGER and her neighbor is willing to assist pt after d/c home and pt does not currently feel HH is needed. Pt states that her sister was just hired at the [employer] [facility] [employer] and in new employee orientation today and then will fly home to [place] and pack her belongings and move to [place] to start her job at the end of this month and will be nearby for support and assist with pt. Plan: SW to follow for plan of d/c home tomorrow 04/19 early in the AM to make her Urology appointment and declines HH at this time and feels she has enough assist at home and her father plans to provide transport at d/c. BF Original Note: DCP Cont: Per Surgeon, will round on the pt around lunchtime to determine if she is medically stable to discharge today vs tomorrow. Per RN, will attempt dilaudid PO today to confirm if this helps manage her pain. PT will attempt further therapy today and possible stairs if pt can tolerate, recommending HH SW met bedside with pt and explained role and she confirms that she is still limited by pain management issues and would like to d/c home but also not sure if she feels medically stable yet and agreeable to work with PT today after PO pain meds. Pt is hopeful not to d/c with a randall and has scheduled appointment with Urologist Dr. Walker tomorrow 04/19/23 at 0815 and he will determine if randall can be discontinued and pt is hopeful to get the stent removed that Dr. Walker placed early January last month. SW discussed HH recommendation and explained their services and frequency and coverage by Medicare and provided HH brochure to review and pt states she would like to see how she does with PT today before making determination if HH needed/wanted at discharge. Pt confirms that she has family assist and they are currently watching her two dogs at home. Plan; SW to follow after Surgeon rounds to determine d/c home today vs tomorrow and outpt Urology appointment tomorrow. SW to follow for further PT eval today for pt to make decision if she wants HH referral or not needed. TERESO Larsen
--- NOTE | 2023-04-18 11:20 | PT.IPTN ---
Current Diagnoses Hemoperitoneum (04/14/23) Surgery Performed Operation Date: 04/14/23 21:30 Actual Procedures p Exploratory Laparotomy, left oopherectomy - Susannah Mesa MD Physical Therapy Treatment Note M2 PT-IP Current Condition Start: 04/16/23 13:14 Freq: NEEDED Status: Active Protocol: Document 04/17/23 07:45 SP (Rec: 04/17/23 10:46 SP [id number]) Physical Therapy Current Condition Current Condition Evaluation Date 04/16/23 Treatment Diagnosis S/p left oophorectomy and exploratory laparotomy Onset Date 04/14/23 M3 PT-IP Subjective Start: 04/16/23 13:14 Freq: NEEDED Status: Active Protocol: Document 04/18/23 11:53 TS (Rec: 04/18/23 12:24 TS [id number]) Subjective Physical Therapy Visit Type Type Treatment Note Visit Start Time 11:20 Visit Stop Time 11:49 Total Visit Minutes 29 Number of SIGNAL OPERATOR TECHNICAL Visits 1 Physical Therapy Visit Comments Patient Comments Pt found resting in bed, reports not being out of bed much, pain is 5/10, increases with mobility, agreeable to PT . Patient Goals To be able to go home. Therapy Pain Assessment Pain When Pain Assessed At Rest Pain Present Pain Present Pain Reported Location Lower Abdomen Intensity 5 Scale Used Numeric (0 - 10) Description Acute,Dull,Radiating,Sharp Pain Behaviors Facial Grimacing,Guarding, Holding Area,Wincing Pain Management Techniques Distraction,Modification of Treatment,Re-positioning, Timing of Activity with Medications M4 PT-IP Mobility and Gait Start: 04/16/23 13:14 Freq: NEEDED Status: Active Protocol: Document 04/18/23 11:53 TS (Rec: 04/18/23 12:24 TS [id number]) PT-Bed Mobility Assessment Rolling Type of Rolling Log Rolling,Roll to Right Level of Assist Standby Assistance Supine to Sit Supine to Sit Standby Assistance,Contact Guard Assistance Sit to Supine Sit to Supine Standby Assistance Scooting Scooting to Edge of Bed Standby Assistance Scooting Up and Down in Bed Standby Assistance PT-Transfer Assessment Sit to and From Stand Sit to and from Stand Standby Assistance Equipment Transfer Assistive Device None,Gait Belt Orthotic/Prosthetic Devices or Brace: No Comments Mobility Comments Pt found resting in bed, agreeable to PT. Supine to sit SBA with single UE support coming to sitting EOB. Sit to stand no AD SBA, pt unsteady initially with some posterior leaning, pt uses bedrail for stability. She ambulated ~200' SBA with some furniture surfing and use of casanova for support initially, guards/ holds abdomen for comfort, c/o increasing pain but tolerable . She performed stairs x12 SBA with single R rail, did not have any buckling or LOB. Pt was brought back to room in w/ c, sit to stand from w/c SBA with no AD. Pt was left back in bed with call light and tray table nearby, all needs, RN notified. Gait Assessment Gait Gait Assistance Required: Standby Assistance Distance (Feet) 200 Able to Maintain Weight Bearing Status Yes During Gait Assistive Devices Assistive Device Gait Belt,Front Wheeled Walker Orthotic/Prosthetic Devices or Brace: No Gait Deviations General Gait Pattern Antalgic,Decreased Stride Length,Decreased Feet Clearance,Narrow Based Gait Factors Limiting Gait Function Factors Limiting Gait Function Decreased Activity Tolerance, Decreased Strength,Limited Range of Motion,Pain,Poor Safety Awareness Comments Gait Comments See mobility comments. Stair Climbing Assessment Evaluation Level of Assist On Stairs Standby Assistance Devices Stair Climbing Assistive Devices Left Railing,Right Railing Technique/Endurance Stair Climbing Direction Ascend and Descend Stair Climbing Technique Step Over Step Number of Steps Climbed 12 Comments Stair Climbing Comments See mobility commments. PT-Balance Assessment Sitting Balance and Reactions Static Sitting Balance Ability Good Dynamic Sitting Balance Ability Fair Standing Balance and Reactions Static Standing Balance Ability Good Dynamic Standing Balance Ability Fair Device Used FWW Comments Other Balance Tests/Deviations/Treatment See mobility comments. : M5 PT-IP Objective Assessments Start: 04/16/23 13:14 Freq: NEEDED Status: Active Protocol: Document 04/16/23 13:14 AB (Rec: 04/16/23 13:47 AB [id number]) Orientation Orientation/Cognition Level of Alertness Alert Orientation Name,Date,Place,Situation Language Function Ability No Deficits Noted Safety Awareness Understands Safety Issues Memory Description No Deficits Noted Gross Range of Motion Upper Extremity ROM Assessment Within Functional Limits Lower Extremity ROM Assessment Within Functional Limits Strength Upper Extremity Strength Assessment Within Functional Limits Lower Extremity Strength Assessment Bilaterally Impaired Comments Strength Comments Tested in supine due to pain limitation Coordination Assessment Gross Coordination Gross Coordination WNL Sensation Assessment Sensation Gross Sensation WNL Muscle Tone Muscle Tone WNL Yes M6 PT-IP Treatment Start: 04/16/23 13:14 Freq: NEEDED Status: Active Protocol: Document 04/18/23 11:53 TS (Rec: 04/18/23 12:24 TS [id number]) Physical Therapy Treatment Education Education Provided Precautions,Safety M7 PT-IP Assessment and Plan Start: 04/16/23 13:14 Freq: NEEDED Status: Active Protocol: Document 04/18/23 11:53 TS (Rec: 04/18/23 12:24 TS [id number]) PT Summary Assessment and Plan Potential Rehabilitation Potential Excellent Summary Impairments Pain,Strength,Bed Mobility, Gait,Activity Tolerance Progress Towards Goals Progressing Toward Goals Assessment Summary Pt made progress with her mobility this session. She continues to be SBA for all bed mobility, guards abdomen due to increasing pain with mobility. She progressed her gait to ~200'SBA with no AD. She is unsteady initially with gait in room, had some posterior leaning and required use of bed rail for balance/ stability. She does furniture surf some with occassional use of wall support. She improved her balance with gait with increased distance ambulated with no AD. She progressed to stairs x12 ascending and descending SBA with single rail support, she had no buckling or LOB, does continue to gaurd abdomen for comfort. PT is recommending return home with assist and HH . Goals Bed Mobility Goal Independent Transfer Goal Independent Gait Goal Independent Gait Distance 150 Days to Meet Goals 5 Frequency of Treatment Frequency Of Treatment Once a Day Treatment Plan Physical Therapy Treatment Plan Bed Mobility Training,Transfer Training,Gait Training, Therapeutic Exercise,Balance Retraining,Post Op Education, Discharge Planning,Hot or Cold Pack,Neuromuscular Re-ed Other Recommendations and Next Treatment Transfers w/FWW trial without Focus AD toward PLOF or may need one for home, stair mgt 2 enter home L HR, 6+6 stairs. Precautions Abdominal Surgery Precautions Gait Belt above Incisional Area Recommendations To Nursing Amount of Assist Needed Standby Assistance,1 Person Assist Discharge Recommendations PT Discharge Recommendations Home,Home Health Equipment Needed for Home Before Possible FWW, depending on Discharge progress Transportation Needs at Discharge Private Vehicle
--- NOTE | 2023-04-18 11:34 | PC.NURSE ---
Addendum entered by Kat Fletcher R.N. 04/18/23 14:37: Spoke with provider regarding discharge order. Provider requested that night RN message provider by 0530 an update on patient status and continued plan for D/C. Addendum entered by Kat Fletcher R.N. 04/18/23 13:14: Per provider order, RN came to switch Sloan drainage system to leg bag; however, pt declining switch to leg bag at this time bc pt discharging tomorrow. Pt prefers to change to leg bag tomorrow am before discharge. Addendum entered by Kat Fletcher R.N. 04/18/23 11:51: Pt completed Sloan care and CHG bath per nurse guidance. Provider order to keep Sloan in place until outside appointment with urology. RN unable to remove per protocol due to provider order. Original Note: Spoke with provider regarding pt's HTN (SBP 180s) and administration of IV Metoprolol. Provider ordered IV lisinopril and RN waited to admin to not lower pt's BP too quickly. Spoke with provider about labs not being drawn this am but provider said labs were not needed this am and provider said she was not worried about continued bleeding. Encouraged patient to ambulate and get out of chair for breakfast in am. Pt wanted to stay in bed until Physical therapy.
[2023-04-18] MEDS: fentaNYL 25 MCG/PATCH TOP (12:58)
[2023-04-18] MEDS: NAPROXEN 250 MG TABLET 500 MG PO (16:59)
[2023-04-18] MEDS: HYDROMORPHONE 1 MG INJ IV (19:47)
[2023-04-19] VITALS: BP 171/88; PULSE 72; RESP 18; TEMP 36.8; O2SAT 98
[2023-04-19] MEDS: HYDROMORPHONE 2 MG TABLET PO ×3 (00:51→07:27)
[2023-04-19 04:00] VITALS: BP 155/105; PULSE 71; RESP 16; TEMP 36.5; O2SAT 96
[2023-04-19 04:54] LABS: Add Manual Diff / Slide Review NO; Basophils Absolute Auto 100 /uL (0-100); Basophils Percent Auto 0.9 % (0-2); Eosinophils Absolute Auto 200 /uL (0-450); Eosinophils Percent Auto 2.1 % (2-4); Hematocrit 32.7 % (36-46); Hemoglobin 11.6 g/dL (12.0-16.0); Lymphocytes Absolute Auto 1500 /uL (1100-4500); Lymphocytes Percent Auto 18.7 % (25-40); Mean Corpuscular HGB Conc 35.4 % (30-36); Mean Corpuscular Hemoglobin 30.1 PG (26-34); Mean Corpuscular Volume 84.9 fL (80-100); Monocytes Absolute Auto 500 /uL (0-900); Monocytes Percent Auto 5.9 % (3-14); Neutrophils Absolute Auto 5700 /uL (1500-7000); Neutrophils Percent Auto 72.4 % (50-75); Platelet Count 252 X10^3/uL (150-400); Red Blood Cell Count 3.85 X10^6/uL (4.0-5.2); Red Cell Distribution Width 14.1 % (11.6-14.8); White Blood Cell Count 7.9 X10^3/uL (4.5-11.0)
[2023-04-19 04:57] LABS: Blood Urea Nitrogen 7 mg/dL (7-17); Calcium 9.1 mg/dL (8.4-10.2); Carbon Dioxide 31 mmol/L (22-32); Chloride 99 mmol/L (98-107); Estimated Glomerular Filt Rate > 60 mL/min (>60); Glucose 88 mg/dL (70-100); HEMOLYSIS < 15 (0-50); Potassium 3.8 mmol/L (3.4-5.1); Sodium 137 mmol/L (137-145)
[2023-04-19] MEDS: NAPROXEN 250 MG TABLET 500 MG PO (07:27)
[2023-04-19] MEDS: lisinopriL 20 MG TABLET PO (07:27)
[2023-04-19] MEDS: PRENATAL VIT,CALC/IRON/FOLIC 1 TABLET 1 TAB PO (07:27)
[2023-04-19] MEDS: CIPROFLOXACIN 250 MG TABLET 500 MG PO (07:28)
[2023-04-19] MEDS: PANTOPRAZOLE DR 40 MG TABLET PO (07:28)
--- NOTE | 2023-04-19 10:26 | PC.NURSE ---
At shift change, RN spoke with patient about pain management options. Patient declined second fentanyl patch that was ordered, and pt requested that RN remove fentanyl patch that was placed yesterday due to unwanted side effects of twitching. Pt was agreeable with pain management pharmacological and non-pharmacological options that were ordered from pharmacy and discussed by RN. RN counseled patient on calling the doctor/following up if pt experienced unrelenting severe pain, urinary retention and signs and symptoms of an infection. Pt left with Sloan leg bag per provider orders, Rn confirmed Sloan placement and that area was clean/dry/intact. Pt was stable and met discharge criteria when RN discharged patient around 0740.
--- NOTE | 2023-04-24 12:53 | PM.DS.1 ---
History of Present Illness History of Present Illness Date Patient Seen: 04/18/23 Chief complaint: post op stent /HX kidney stone V/ pain/bleeding Narrative: Left sided flank pain starting today, h/o hydronephrosis and lithotripsy on left kidney. H/o uterine cancer. Unclear etiology of pain this morning with acute deterioration over the course of the afternoon. Dramatic drop in hct. Repeat CT scan does not reveal a source, but +hemoperitoneum. Discharge Providers Provider Date of admission: 04/14/23 20:35 Discharge Date: 04/18/23 Primary care physician: Doctor Mignon MD Consults: 04/16/23 10:01 Consult to Physical Therapy Evaluate & Treat Comment: weakness Physician Instructions: Evaluate and Treat 04/17/23 11:24 Consult to Urology Routine Comment: Consulting Provider: Naren Walker Reason for consultation: follow up stent for left hydro and new urinary retention. Has provider been notified: No Discharge provider: Susannah Mesa MD Summary Hospital Course Discharge Diagnosis: Hemoperitoneum, hemorrhagic shock, left ovary torsion, urinary retention, acute blood loss anemia Hospital Course: OR for Xlap with removal of left ovary Blood transfusion Sloan catheter Discharged to Dr. Walker's office for follow up left urinary stent and urinary retension Multi vitamen with iron for anemia Status at Discharge Cognitive/behavioral status at discharge: at baseline, oriented Functional status at discharge: independent ambulation Overall status at discharge: patient is progressing back to baseline Time Spent with Patient Time spent: Less than 30 minutes Exam Vital Signs (past 8 hours): Oxygen Delivery Method Room Air Oxygen Flow Rate 0 Objective Labs 04/19/23 04:25 04/19/23 04:25 [facility] Medical History (Updated 04/19/23 @ 08:49 by Naren Walker MD) Anxiety and depression (~1997) Chronic back pain (~2000) Fibromyalgia (~2011) History of depression History of kidney stones Hx of cancer of uterus Hx of migraine headaches Hx of nephrolithotomy with removal of calculi Hx of neurological disease Hydronephrosis, left Kidney stones (~2008) Left renal stone Menorrhagia (~2011) Migraine headache without aura (~1998) Painful menstrual periods (~2011) Recurrent sinusitis Restless leg syndrome (~2011) S/P extracorporeal shock wave therapy (01/31/23) Urinary retention Surgical History (Updated 04/19/23 @ 08:53 by Naren Walker MD) Anesthesia History of lithotripsy [place] teeth extracted Family History Father Prediabetes Hypertension Hyperlipidemia Grandfather Cancer Hypertension Hyperlipidemia Stroke Grandmother Cancer Hyperlipidemia Hypertension Stroke Grandmother Bladder cancer Breast cancer Social History marital status: number of children: 2 household members: children Smoking Status: Never smoker alcohol intake: never caffeine: No Type(s) of exercise: walking frequency: daily duration: > 90 minutes/day Discharge Plan Discharge Plan Patient Disposition: Home Provider Discharge Comment: keep appt with Aaron tomorrow Discharge orders & Medications Prescriptions: New lisinopril 20 mg Tablet 20 mg PO DAILY Qty: 10 0RF naproxen 250 mg Tablet 500 mg PO BIDWM Qty: 20 0RF Prenatabs Rx 29 mg iron- 1 mg Tablet 1 tab PO DAILY Qty: 30 0RF hydromorphone 2 mg Tablet 2 mg PO Q4HR PRN (Reason: Pain, Severe (7-10)) Qty: 20 0RF fentanyl 25 mcg/hr patch 72 hour 1 patch transdermal Q72H Qty: 1 0RF scopolamine base 1 mg over 3 days patch 3 day 1 patch transdermal Q3D PRN (Reason: nausea and vomiting) Qty: 4 0RF ondansetron 4 mg tablet,disintegrating 4 mg PO BID-TID PRN (Reason: nausea and vomiting) Qty: 10 0RF Discontinued ciprofloxacin HCl 500 mg tablet 500 mg PO BID Qty: 10 0RF Rx Instructions: To be started Monday in preparation for procedure Monday No Action tamsulosin 0.4 mg capsule 0.8 mg PO DAILY Qty: 60 3RF Follow up/Referrals: Susannah Mesa MD [Physician] - 04/26/23 11:00 am (Appt:04/26 check in @ 11:[address] Wong for staple removal,post op check ) Naren Walker MD [Physician] - 04/19/23 8:00 am (Appt:04/19 @ 8am for check in with Dr Walker ) Activity Restrictions/Additional Instructions: No heavy lifting (greater than 15 lbs) for 2 weeks Diet/Activity/Treatments Diet: Diet as Tolerated Skin/Wound/Dressing Care Report to your healthcare provider any signs of infection, such as:: chills, fever, unusual drainage and unusual redness Dressing: remove dressing and replace with dry gauze if needed for comfort or drainage. Visit Report/Discharge Packet Instructions: [facility]: Wound Care Stand Alone Forms: Patient Portal/API, Surgery Discharge Discharge Data Primary Care Provider: Miscellaneous,Doctor Discharges patient from system. Discharge Date/Time: 04/19/23 07:50
== END 2023-04-19 07:50 | disposition home or self-care (01) | DRG 356 ==
LOC: ED 08:00 → AC 20:37 → ICU 04-15 10:41 → AC 04-17 08:21
PROVIDERS: Admitting Provider Surgery; Emergency Provider Emergency Medicine; Referring Provider Emergency Medicine; Visit Provider Surgery
PROC: 0UT10ZZ Resection of Left Ovary, Open Approach (ICD-10-PCS; CPT 49000; principal; 2023-04-14 21:30)
DX: K66.1 Hemoperitoneum (principal); R57.8 Other shock; N83.512 Torsion of left ovary and ovarian pedicle; D62 Acute posthemorrhagic anemia; R33.9 Retention of urine, unspecified
CPT/HCPCS: 36415; 36430; 36573; 36592; 58940; 71045; 74176; 74177; 76830; 76856; 80048; 80053; 81001; 83605; 83690; 84145; 84703; 85014; 85018; 85025; 85379; 85384; 85610; 85730; 86304; 86850; 86900; 86901; 86927; 87040; 87086; 87635; 87797; 93005; 96365; 96367; 96375; 96376; 97116; 97162; 97530; 99233; 99285; C9803; P9016; P9017; J0330; J0690; J0696; J1100; J1170; J1200; J1885; J2270; J2405; J2704; J2930; J3010; P9035; Q9967

== ENCOUNTER → 2023-04-19 09:03 | Outpatient (CLI) | payer MEDICARE, SELFPAY ==
[2023-04-16 21:12] VITALS: BMI 26.9
== END ==
PROVIDERS: Visit Provider Urology
DX: N13.30 Unspecified hydronephrosis (principal); R33.9 Retention of urine, unspecified; Z98.890 Other specified postprocedural states; Z96.0 Presence of urogenital implants
CPT/HCPCS: 87086; 99214

== ENCOUNTER → 2023-04-25 08:26 | Outpatient (CLI) | payer MEDICARE, SELFPAY ==
[2023-04-16 21:12] VITALS: BMI 26.9
--- NOTE | 2023-04-25 08:27 | DI.RAD.S_ITS ---
PROCEDURE: XR KUB INDICATIONS: Follow-up kidney stone TECHNIQUE: One view of the abdomen acquired. COMPARISON: [facility], CR, XR KUB, 03/21/2023, 18:19. FINDINGS: Surgical changes and devices: Postsurgical changes are noted in mid to lower abdomen with skin geronimo in place. Left-sided ureteral stent is again noted, position unchanged from prior study. Bowel: Bowel gas pattern is normal. Soft tissues: Small calcification in the region of right renal pelvis measures 7 x 4 mm in size is seen unchanged from prior study. No new abnormal calcifications are seen. Multiple phleboliths are noted in lower pelvis.. Visualized solid organ contours appear normal in size. Bones: No suspicious bony lesions. IMPRESSION: Stable left-sided renal stone with left ureteral stent in place. Postsurgical changes in mid to lower abdomen. No bowel obstruction or gross free air. Dictated by: Ricco Smith M.D. on 04/25/2023 at 12:51 Approved by: Ricco Smith M.D. on 04/25/2023 at 12:53
== END ==
PROVIDERS: Referring Provider Urology; Visit Provider Urology
DX: R39.9 Unspecified symptoms and signs involving the genitourinary system (principal); N20.0 Calculus of kidney; Z96.0 Presence of urogenital implants
CPT/HCPCS: 51798; 52310; 74018; 81002; 87086

== ENCOUNTER → 2023-04-25 15:40 | Outpatient (CLI) | payer MEDICARE, SELFPAY ==
[2023-04-16 21:12] VITALS: BMI 26.9
== END ==
PROVIDERS: Visit Provider Urology
DX: R39.9 Unspecified symptoms and signs involving the genitourinary system (principal)
CPT/HCPCS: 87086

== ENCOUNTER → 2023-05-05 10:28 | Outpatient (CLI) | payer MEDICARE, SELFPAY ==
[2023-04-16 21:12] VITALS: BMI 26.9
[2023-05-05 12:38] LABS: Calcium 9.6 mg/dL (8.4-10.2); Phosphorous 3.5 mg/dL (2.5-4.5); Uric Acid 4.4 mg/dL (2.5-6.2)
[2023-05-06 11:36] LABS: Calcium 9.7 mg/dL (8.7-10.2); Parathyroid Hormone, Intact 26 pg/mL (15-65)
== END ==
PROVIDERS: Referring Provider Urology; Visit Provider Urology
DX: N13.30 Unspecified hydronephrosis (principal); N20.0 Calculus of kidney; R33.9 Retention of urine, unspecified; R31.29 Other microscopic hematuria; Z96.0 Presence of urogenital implants; Z87.442 Personal history of urinary calculi; Z98.890 Other specified postprocedural states
CPT/HCPCS: 36415; 51798; 81002; 82310; 83970; 84100; 84550; 99213

== ENCOUNTER → 2023-05-10 08:41 | Outpatient (CLI) | payer MEDICARE, SELFPAY ==
[2023-04-16 21:12] VITALS: BMI 26.9
[2023-05-10 10:06] LABS: Appearance Urine UA CLEAR; Bilirubin Urine UA NEGATIVE (NEGATIVE); Color Urine UA YELLOW; Glucose Urine UA NEGATIVE (Negative); Ketones Urine UA NEGATIVE (NEGATIVE); Leukocyte Esterase Urine UA NEGATIVE (NEGATIVE); Nitrite Urine UA NEGATIVE (Negative); Occult Blood Urine UA NEGATIVE (Negative); Protein Urine UA 1+ (Negative); Urobilinogen Urine UA 0.2 E.U./dL (0.2)
[2023-05-10 10:07] LABS: pH Urine UA 6.5 (4.5-8.0)
[2023-05-10 10:11] LABS: Bacteria Urine None Seen; Culture Indicated Urine Cult Not Indicated; RBC Urine None Seen (0-5/HPF); Squamous Epithelial Cell Urine None Seen (0-5/HPF); Urine Comments Microscopic Normal; WBC Urine None Seen (0-5/HPF)
== END ==
PROVIDERS: Referring Provider Urology; Visit Provider Urology
DX: N13.30 Unspecified hydronephrosis (principal); N20.0 Calculus of kidney; R33.9 Retention of urine, unspecified; Z96.0 Presence of urogenital implants
CPT/HCPCS: 81001

== ENCOUNTER → 2023-06-14 10:29 | Outpatient (CLI) | payer MEDICARE, SELFPAY ==
[2023-04-16 21:12] VITALS: BMI 26.9
--- NOTE | 2023-06-14 10:31 | DI.RAD.S_ITS ---
PROCEDURE: XR KUB INDICATIONS: Left renal calculi TECHNIQUE: One view of the abdomen acquired. COMPARISON: [facility], CT, CT ABDOMEN PELVIS W CON, 04/14/2023, 19:40. [facility], CR, XR KUB, 04/25/2023, 8:45. FINDINGS: Surgical changes and devices: None. Bowel: Bowel gas pattern is normal. Soft tissues: Stippled calcification project over the expected location of the left proximal ureter. Left ureteral stent has been removed. Visualized solid organ contours appear normal in size. Bones: No suspicious bony lesions. IMPRESSION: Possible left proximal ureteral calculi can be confirmed with CT Approved by: Edy Dubon M.D. on 06/14/2023 at 18:21
[2023-06-14 11:18] LABS: Add Manual Diff / Slide Review NO; Basophils Absolute Auto 100 /uL (0-100); Basophils Percent Auto 1.2 % (0-2); Eosinophils Absolute Auto 0 /uL (0-450); Eosinophils Percent Auto 0.5 % (2-4); Hematocrit 40.3 % (36-46); Hemoglobin 13.9 g/dL (12.0-16.0); Lymphocytes Absolute Auto 1400 /uL (1100-4500); Lymphocytes Percent Auto 29.7 % (25-40); Mean Corpuscular HGB Conc 34.5 % (30-36); Mean Corpuscular Hemoglobin 30.4 PG (26-34); Monocytes Absolute Auto 300 /uL (0-900); Monocytes Percent Auto 6.1 % (3-14); Neutrophils Absolute Auto 3000 /uL (1500-7000); Neutrophils Percent Auto 62.5 % (50-75); Platelet Count 272 X10^3/uL (150-400); Red Blood Cell Count 4.58 X10^6/uL (4.0-5.2); Red Cell Distribution Width 15.3 % (11.6-14.8); White Blood Cell Count 4.7 X10^3/uL (4.5-11.0)
[2023-06-14 12:37] LABS: TSH w/ Reflex to FT4 0.71 uIU/mL (0.47-4.68)
[2023-06-14 18:44] LABS: Follicle Stimulating Hormone 24.5 mIU/mL; Luteinizing Hormone 39.9 mIU/mL
[2023-06-14 18:59] LABS: Estradiol, Total 89.4 pg/mL
== END ==
PROVIDERS: PCP Family Medicine; Referring Provider Urology; Visit Provider Urology
DX: N20.0 Calculus of kidney (principal); D64.9 Anemia, unspecified; R23.2 Flushing
CPT/HCPCS: 36415; 74018; 82670; 83001; 83002; 84443; 85025

== ENCOUNTER → 2023-07-25 08:40 | Outpatient (CLI) | payer MEDICARE, SELFPAY ==
[2023-04-16 21:12] VITALS: BMI 26.9
--- NOTE | 2023-07-25 08:41 | DI.US.S_ITS ---
PROCEDURE: US RENAL COMPLETE INDICATIONS: LEFT HYDRONEPHROSIS, STONES TECHNIQUE: Real-time scanning was performed of the kidneys and bladder, with image documentation. COMPARISON: [facility], CT, CT ABDOMEN PELVIS W CON, 04/14/2023, 19:40. [facility], CR, XR KUB, 06/14/2023, 10:44. FINDINGS: Kidneys: Kidneys are normal in size. Right kidney measures 11.1 cm long; left kidney measures 12.1 cm long. Right renal cortical thickness is 1.5 cm; left renal cortical thickness is 1.5 cm. Renal cortical echotexture is normal. There is a 1.6 cm hyperechoic shadowing focus seen involving the inferior aspect of the left kidney. Severe left-sided hydronephrosis is seen. Bladder: Pre-void bladder volume is 327 mL. Post-void residual is 0 mL. Pre-void images demonstrate no intraluminal masses or stones. On pre-void images, only the right ureteral jet can be seen with color Doppler interrogation. (Of note, ureteral jets may not be detectable in up to 25% of cases due to insufficient differences in specific gravity between ureteral and bladder urine). Miscellaneous: No free pelvic fluid. IMPRESSION: There is a 1.6 cm hyperechoic shadowing focus along the inferior aspect of the left kidney. Given the history of stent removal, this is attributed to a stone. - If clinically appropriate, please consider follow-up noncontrast CT. There is continued severe left-sided hydronephrosis. No postvoid residual. Dictated by: Yakov Alegre M.D. on 07/25/2023 at 10:47 Approved by: Yakov Alegre M.D. on 07/25/2023 at 10:50
== END ==
PROVIDERS: PCP Family Medicine; Referring Provider Urology; Visit Provider Urology
DX: N13.30 Unspecified hydronephrosis (principal); N20.0 Calculus of kidney
CPT/HCPCS: 76770

== ENCOUNTER → 2023-07-28 12:39 | Outpatient (CLI) | payer MEDICARE, SELFPAY ==
[2023-04-16 21:12] VITALS: BMI 26.9
--- NOTE | 2023-07-28 12:40 | DI.CT.S_ITS ---
PROCEDURE: CT ABDOMEN WO CON INDICATIONS: Calcium oxalate calculus TECHNIQUE: After the administration of oral contrast, 5 mm thick sections acquired from the diaphragms to the iliac crests. 5 mm coronal and sagittal reformats were then performed. For radiation dose reduction, the following was used: automated exposure control, adjustment of mA and/or kV according to patient size. COMPARISON: [facility], CR, XR KUB, 06/14/2023, 10:44. [facility], CR, XR KUB, 04/25/2023, 8:45. [facility], RG, CT ABDOMEN/PELVIS WITH CONTRAST, 08/15/2022, 20:11. [facility], CT, CT ABDOMEN PELVIS WO CON, 03/04/2023, 10:56. [facility], CT, CT KIDNEY URETER BLADDER (KUB), 04/14/2023, 9:09. [facility], CT, CT ABDOMEN PELVIS W CON, 04/14/2023, 19:40. FINDINGS: Image quality: Excellent. Lung bases: Lung bases are clear. Heart size is normal. Solid organs: Liver is normal in size. Gallbladder appears normal . Pancreas is normal in contours. Spleen is normal in size. No adrenal nodules. Both kidneys are normal in size, without right-sided hydronephrosis or nephrolithiasis. There is, however, chronic hydronephrosis on the left and a double pigtail left ureteral catheter previously present on multiple prior recent CTs has been removed. That catheter was present on plain film imaging 04/25/23 and was absent 06/14/23. A small residual calcification within the renal pelvis area of the left kidney is clearly visualized, somewhat lobulated, and has a maximal craniocaudad dimension of 8 mm and a maximal AP and transverse dimension of 9 by 6 mm. This likely has slightly enlarged from the comparison plain film image in mid May. Current radiodensity within this calculus is 860 Hounsfield units. Peritoneum and bowel: Bowel loops demonstrate normal wall thickness and caliber. No free fluid or air. Nodes and vessels: No retroperitoneal or mesenteric adenopathy by size criteria. Aorta and inferior vena cava are normal in size. Bones: No suspicious bony lesions. No vertebral body compression fractures. Miscellaneous: No ventral hernias. IMPRESSION: Redeveloping residual calculus measuring 8 x 9 x 6 mm in the collecting system of the left kidney. This same area had contained a significantly larger rounded calculus prior to treatment. Chronic left-sided hydronephrosis is again seen, moderate in severity, with mild urothelial thickening also again noted within the left renal pelvis and collecting system. Dictated by: Orlando Huitron M.D. on 07/28/2023 at 14:28 Approved by: Orlando Huitron M.D. on 07/28/2023 at 14:37
== END ==
PROVIDERS: PCP Family Medicine; Referring Provider Urology; Visit Provider Urology
DX: N20.0 Calculus of kidney (principal); N13.30 Unspecified hydronephrosis
CPT/HCPCS: 74150

== ENCOUNTER → 2023-08-04 09:07 | Outpatient (CLI) | payer MEDICARE, SELFPAY ==
[2023-04-16 21:12] VITALS: BMI 26.9
[2023-08-04 10:01] LABS: Add Manual Diff / Slide Review NO; Basophils Absolute Auto 100 /uL (0-100); Basophils Percent Auto 1.3 % (0-2); Eosinophils Absolute Auto 0 /uL (0-450); Eosinophils Percent Auto 0.6 % (2-4); Hematocrit 39.4 % (36-46); Hemoglobin 13.9 g/dL (12.0-16.0); Lymphocytes Absolute Auto 1300 /uL (1100-4500); Lymphocytes Percent Auto 30.4 % (25-40); Mean Corpuscular HGB Conc 35.2 % (30-36); Mean Corpuscular Hemoglobin 30.6 PG (26-34); Monocytes Absolute Auto 300 /uL (0-900); Monocytes Percent Auto 7.6 % (3-14); Neutrophils Absolute Auto 2600 /uL (1500-7000); Neutrophils Percent Auto 60.1 % (50-75); Platelet Count 251 X10^3/uL (150-400); Red Blood Cell Count 4.53 X10^6/uL (4.0-5.2); Red Cell Distribution Width 13.1 % (11.6-14.8); White Blood Cell Count 4.4 X10^3/uL (4.5-11.0)
[2023-08-04 10:39] LABS: Alanine Aminotransferase 17 IU/L (<35); Albumin 4.2 g/dL (3.5-5.0); Albumin Globulin Ratio 1.4 (1.0-2.8); Alkaline Phosphatase 60 U/L (38-126); Aspartate Aminotransferase 23 IU/L (14-36); BUN Creatinine Ratio 25.4 (6-22); Blood Urea Nitrogen 16 mg/dL (7-17); Carbon Dioxide 25 mmol/L (22-32); Chloride 104 mmol/L (98-107); Estimated Glomerular Filt Rate > 60 mL/min (>60); Globulin 2.9 g/dL (1.7-4.1); Glucose 87 mg/dL (70-100); HEMOLYSIS < 15 (0-50); Potassium 4.1 mmol/L (3.4-5.1); Sodium 135 mmol/L (137-145); Total Protein 7.1 g/dL (6.3-8.2)
== END ==
PROVIDERS: PCP Family Medicine; Referring Provider Urology; Visit Provider Urology
DX: E83.59 Other disorders of calcium metabolism (principal); R82.994 Hypercalciuria; N13.30 Unspecified hydronephrosis; N20.0 Calculus of kidney; R14.0 Abdominal distension (gaseous); R53.83 Other fatigue; Z86.2 Personal history of diseases of the blood and blood-forming organs and certain disorders involving the immune mechanism; Z98.890 Other specified postprocedural states
CPT/HCPCS: 36415; 80053; 85025; 99214

== ENCOUNTER 2023-08-29 06:17 | Day surgery (SDC) | payer MEDICARE, SELFPAY ==
[2023-04-16 21:12] VITALS: BMI 26.9
[2023-08-22 13:41] VITALS: BMI 24.3
[2023-08-29 06:55] VITALS: BP 165/98; PULSE 76; RESP 16; TEMP 36.6; O2SAT 100; BMI 24.3
[2023-08-29] MEDS: LACTATED RINGERS 1,000 ML 42 ML IV (07:10)
[2023-08-29] MEDS: ACETAMINOPHEN 325 MG TABLET 975 MG PO (07:12)
[2023-08-29] MEDS: SCOPOLAMINE 1 PATCH TOP (07:12)
--- NOTE | 2023-08-29 07:43 | PM.PREOP ---
Pre-operative Note COVID-19 COVID-19 status: Not tested Interval Note History & Physical reviewed/Exam performed by Physician: Yes Changes to H&P: No
[2023-08-29] MEDS: CEFAZOLIN 2 GM/100 ML PREMIX 100 ML IV (07:52)
--- NOTE | 2023-08-29 08:02 | SUR.OPER ---
Lithotomy on ESWL table, head on pillow, arms padded and tucked. Legs secured in ESWL stirrups.
[2023-08-29 08:39] VITALS: BP 162/94; PULSE 60; RESP 14; TEMP 36.2; O2SAT 92
[2023-08-29 08:44] VITALS: BP 167/97; PULSE 66; RESP 11; O2SAT 92
--- NOTE | 2023-08-29 08:45 | P.OP_ITS ---
Procedure & Clinicians Procedure: Cystoscopy with left ureteral stent placement and extracorporeal shockwave lithotripsy. Same procedure as scheduled: Yes Indications: This 48-year-old female that had known stones. Which was previously treated has had a recurrent an enlarging left-sided stone which she presents today for the above treatments. Surgeon: Naren Walker Click Yes if Unassisted: Yes Anesthesia Type: General Operative Notes Findings: As cystoscopy external genitalia were normal. Urethra was normal along its length the ureteral orifices in normal position with clear efflux. There was no abnormality within the bladder. The stone was noted to be at the UPJ. The 7 [place] by multilink stent was left in good position in the left collecting system without a string. The patient had a total of 2000 shocks at level 7 with apparent fragmentation of the stone. No other abnormalities were noted. Closure Type: not applicable Specimen(s): none sent Prosthetic devices, grafts, tissues, transplants, or devices: Seven [place] by multi length stent left collecting system no string. Estimated Blood Loss (mL): 0 Blood products transfused: none Procedure in detail: Procedure in detail: After informed consent was obtained, the patient was identified and brought to the operating room where she was placed in the Lithotripter. Once in the supine position anesthesia was induced to maintain. Ensuring an adequate level of anesthesia the patient was transitioned to the lithotomy position where she was prepped, draped, prepared for Transurethral procedure. After prepping, draping, ensuring an adequate level of anesthesia, time-out and administration of antibiotics a 22 [place] cystoscope was passed through the urethra and into the bladder where cystoscopy was performed. The left ureteral orifice was identified and a hybrid guidewire was passed up into the collecting system under fluoroscopic visualization. The stent was then passed over the wire positioned in the renal pelvis under fluoroscopic visualization and in the bladder under direct vision. The wire was removed and the stent was left in good position. The nylon harness was then removed and again the stent was in good position. The patient then had the stone targeted via the imaging system and shockwave were delivered at level 7 for a total of 2000. There was periodic reimaging and re localization to ensure maximal energy delivery to the stone. At 2000 shock waves the shockwave head was rotated out and fluoroscopy performed. The stone did appear to have fragmented. And we will see how the evacuation of the stone does at follow-up. At this point given the maximum number of shocks patient was awakened transferred to the posta nesthesia care unit having tolerated the procedure well to be discharged to home once fully awake and alert. There were no complications Complications: none Post-operative Condition: stable Disposition: PACU Plan for aftercare: Patient will follow-up in my office in 10-14 days with a KUB. She will strain her urine and save any fragments and bring these to follow-up.
[2023-08-29 08:49] VITALS: BP 160/107; PULSE 63; RESP 11; O2SAT 100
[2023-08-29 08:58] VITALS: BP 166/86; PULSE 62; RESP 16; O2SAT 100
[2023-08-29] MEDS: OXYBUTYNIN 5 MG TABLET PO (09:13)
[2023-08-29] MEDS: OXYCODONE IR 5 MG TABLET PO (09:13)
[2023-08-29] MEDS: PHENAZOPYRIDINE 100 MG TABLET 200 MG PO (09:13)
== END 2023-08-29 09:54 | disposition home or self-care (01) ==
PROVIDERS: PCP Family Medicine; Referring Provider Urology; Visit Provider Urology
PROC: (CPT 50590; principal; 2023-08-29 07:45)
DX: N13.2 Hydronephrosis with renal and ureteral calculous obstruction (principal); E83.59 Other disorders of calcium metabolism; R82.994 Hypercalciuria; R53.83 Other fatigue
CPT/HCPCS: 50590; 52332; J0690; J1100; J1885; J2250; J2405; J2704; J3010

== ENCOUNTER 2023-09-12 06:10 | Day surgery (SDC) | payer MEDICARE, SELFPAY ==
[2023-04-16 21:12] VITALS: BMI 26.9
[2023-09-07 09:19] VITALS: BMI 26.9
[2023-09-11 09:36] VITALS: BMI 24.3
[2023-09-12] VITALS (14 sets, daily range): BP systolic 116–150; BP diastolic 67–97; PULSE 71–96; RESP 10–16; TEMP 36.3–36.6; O2SAT 92–100; BMI 24.7
[2023-09-12] MEDS: LACTATED RINGERS 1,000 ML 42 ML IV ×2 (07:25→10:09)
[2023-09-12] MEDS: SCOPOLAMINE 1 PATCH TOP (07:34)
--- NOTE | 2023-09-12 07:46 | P.HP_ITS ---
History of Present Illness History of Present Illness Date Patient Seen: 09/12/23 Time Patient Seen: 07:46 Chief complaint: SDC Narrative: Seema is a 48-year-old woman with a symptomatic left inguinal hernia. See office note from July for details. FORMERLY [facility] Medical History (Updated 09/11/23 @ 09:39 by Sari Santos RN) Easy bruisability Neuropathy S/P extracorporeal shock wave therapy (08/29/23) Uterine cancer Hypercalciuria Calcium oxalate calculus Multiple sclerosis Urinary retention S/P extracorporeal shock wave therapy (01/31/23) Hydronephrosis, left Left renal stone Hx of nephrolithotomy with removal of calculi Hx of neurological disease Hx of migraine headaches History of kidney stones History of depression Hx of cancer of uterus Anxiety and depression (~1997) Restless leg syndrome (~2011) Chronic back pain (~2000) Recurrent sinusitis Painful menstrual periods (~2011) Menorrhagia (~2011) Kidney stones (~2008) Fibromyalgia (~2011) Migraine headache without aura (~1998) Surgical History (Updated 08/22/23 @ 13:54 by Sari Santos RN) Hx of exploratory laparotomy (04/04/23) Anesthesia History of lithotripsy [place] teeth extracted Family History Father Prediabetes Hypertension Hyperlipidemia Grandfather Cancer Hypertension Hyperlipidemia Stroke Grandmother Cancer Hyperlipidemia Hypertension Stroke Grandmother Bladder cancer Breast cancer Social History marital status: number of children: 2 household members: none Smoking Status: Never smoker alcohol intake: never caffeine: No Type(s) of exercise: walking frequency: daily duration: > 90 minutes/day Meds Home Medications and Allergies Home Medications Medication Instructions Recorded Confirmed Type magnesium chloride 1 tab PO DAILY 05/18/23 09/12/23 History vitamin D3 1,250 mcg (50,000 1,250 cap PO DAILY 06/16/23 09/12/23 History unit)-vitamin K2 200 mcg capsule Allergies Allergy/AdvReac Type Severity Reaction Status Date / Time Sulfa (Sulfonamide Allergy Intermediate Rash Verified 09/12/23 06:38 Antibiotics) hydrocodone [From Vicodin] Allergy Unknown Verified 09/12/23 06:38 succinylcholine Allergy Verified 09/12/23 07:37 morphine AdvReac Severe Muscle Pain Verified 09/12/23 06:47 Exam Vital Signs (past 8 hours): - 09/12/23 06:49 Temperature 97.6 F Pulse Rate 80 Respiratory Rate 16 Blood Pressure 150/97 H Pulse Oximetry 99 Oxygen Delivery Method Room Air Oxygen Delivery Method Room Air Const General: healthy appearing Resp Effort & Inspection: normal respiratory effort Assessment & Plan Assessment and plan (1) Left inguinal hernia: Status: Acute Plan We reviewed the plan for a laparoscopic left inguinal hernia repair with mesh. If there is a right inguinal hernia I would perform a bilateral laparoscopic inguinal hernia repair. If there are extensive adhesions then we would have to revert to a open left inguinal hernia repair with mesh. She understands and agrees to proceed.
[2023-09-12] MEDS: CEFAZOLIN 2 GM/100 ML PREMIX 100 ML IV (08:10)
--- NOTE | 2023-09-12 08:39 | SUR.OPER ---
Supine on padded OR bed with pink pad positioner, head on pillow, arms padded and tucked at sides, legs uncrossed, pillow under knees, safety belt at thigh, tape over blanket over lower legs .
[2023-09-12] MEDS: BUPIVACAINE 0.5% (PF) 30 ML, EPINEPHrine 0.15 MG INJ (08:54)
--- NOTE | 2023-09-12 10:24 | PM.OP.1 ---
Operative Date/Time/Diagnoses Date of procedure: 09/12/23 Time of procedure: 10:24 Pre-op diagnosis: Left inguinal hernia Post-op diagnosis: same Procedure & Clinicians Procedure: Laparoscopic left hernia repair with mesh Same procedure as scheduled: Yes Surgeon: Rodolfo Wong Anesthesia Type: General Operative Notes Procedure in detail: The patient was given preoperative antibiotics. The patient was brought to the operating room, placed on the table in the supine position with the arms tucked and general anesthesia was induced. The abdomen was prepped and draped in the usual fashion. A time-out was performed. A 1 cm transverse incision was created superior to the umbilicus and dissection was carried down to the fascia. The fascia was scored transversely with cautery. The fascia was grasped with a Emmett clamp to elevate the abdominal wall. A Peon clamp was used to galdamez the peritoneum. The Mark port was placed and the abdomen was insufflated to 15 mmHg. The camera was inserted, there was no evidence of any injury from the entry. 5 mm ports were placed under direct vision in the mid left and mid right abdomen. The patient was positioned in Trendelenburg. There were adhesions of omentum and a loop of small bowel to the low midline surgical scar. These adhesions were carefully taken down using sharp dissection and judicious cautery. We created left peritoneal flap. The peritoneum was dissected off of the round ligament and the Zia's ligament was exposed. There appeared to be a fat containing direct defect. A medium left Bard mesh was brought in and placed over the defect with the medial edge against Zia's ligament. We then closed the peritoneal flap with a running 3-0 barbed suture. We took one last look around the abdomen and found that there was a bleeding vessel from the portion of omentum that had been dissected off the abdominal wall at the beginning of the case. This was addressed with cautery. We suctioned some blood clot from the abdomen. The 5 mm ports were removed under direct vision. The abdomen was desufflated. The Mark port was removed. Additional local was injected into the fascia and the fascial incision was closed with 2 interrupted 0 Vicryl sutures. The skin incisions were closed with 4 Monocryl, Steri-Strips and Band-Aids. EBL: 30 mL Post-operative Condition: stable Disposition: PACU
[2023-09-12] MEDS: ONDANSETRON 4 MG/2 ML INJ IV (10:51)
[2023-09-12] MEDS: OXYCODONE IR 5 MG TABLET PO ×2 (10:52→11:23)
[2023-09-12] MEDS: hydrOXYzine 50 MG/ML INJ 25 MG IM (11:11)
== END 2023-09-12 11:57 | disposition home or self-care (01) ==
PROVIDERS: PCP Family Medicine; Referring Provider Surgery; Visit Provider Surgery
PROC: 0YQ64ZZ Repair Left Inguinal Region, Percutaneous Endoscopic Approach (ICD-10-PCS; CPT 49650; principal; 2023-09-12 07:45)
DX: K40.90 Unilateral inguinal hernia, without obstruction or gangrene, not specified as recurrent (principal); K66.0 Peritoneal adhesions (postprocedural) (postinfection)
CPT/HCPCS: 49650; J0171; J0360; J0690; J1100; J1170; J2250; J2405; J2704; J3010; J3410

== ENCOUNTER → 2023-09-29 10:21 | Outpatient (CLI) | payer MEDICARE, SELFPAY ==
[2023-09-07 09:19] VITALS: BMI 26.9
--- NOTE | 2023-09-29 10:23 | DI.RAD.S_ITS ---
PROCEDURE: XR KUB INDICATIONS: Follow-up lithotripsy TECHNIQUE: One view of the abdomen acquired. COMPARISON: [facility], CT, CT ABDOMEN WO CON, 07/28/2023, 12:46. [facility], CR, XR KUB, 06/14/2023, 10:44. [facility], CR, XR KUB, 04/25/2023, 8:45. FINDINGS: Surgical changes and devices: Left ureteral stent in place. Bowel: Bowel gas pattern is normal. Soft tissues: There is a calcification of the proximal aspect of the stent measuring up to 8 mm in craniocaudal dimension, similar appearance to prior CT.. Visualized solid organ contours appear normal in size. Bones: No suspicious bony lesions. IMPRESSION: Left ureteral stent in place. Stable appearance of 8 mm calcification along the proximal aspects of the stent compared to prior CT. Dictated by: Silas Gomez M.D. on 09/29/2023 at 10:56 Approved by: Silas Gomez M.D. on 09/29/2023 at 10:59
== END ==
PROVIDERS: PCP Family Medicine; Referring Provider Urology; Visit Provider Urology
DX: N20.0 Calculus of kidney (principal); R10.9 Unspecified abdominal pain; Z87.442 Personal history of urinary calculi; Z96.0 Presence of urogenital implants
CPT/HCPCS: 74018; 81002; 87086

== ENCOUNTER → 2023-09-29 11:53 | Outpatient (CLI) | payer MEDICARE, SELFPAY ==
[2023-09-07 09:19] VITALS: BMI 26.9
== END ==
PROVIDERS: PCP Family Medicine; Visit Provider Urology
DX: R10.9 Unspecified abdominal pain (principal); Z96.0 Presence of urogenital implants
CPT/HCPCS: 87086

== ENCOUNTER → 2023-10-20 10:29 | Outpatient (CLI) | payer MEDICARE, SELFPAY ==
[2023-09-07 09:19] VITALS: BMI 26.9
--- NOTE | 2023-10-20 10:31 | DI.RAD.S_ITS ---
PROCEDURE: XR KUB INDICATIONS: Follow-up treated stone TECHNIQUE: One view of the abdomen acquired. COMPARISON: [facility], CR, XR KUB, 09/29/2023, 10:26. [facility], CR, XR KUB, 06/14/2023, 10:44. FINDINGS: Surgical changes and devices: Left ureteral stent. Bowel: Bowel gas pattern is normal. Soft tissues: Again seen is a 7 mm calcification adjacent to the proximal portion of the stent. Pelvic calcifications are probably phleboliths. Bones: There are mild degenerative changes at the hips. IMPRESSION: Unchanged 7 mm calcification adjacent to the proximal portion of the left ureter stent. Dictated by: Jase Ross M.D. on 10/20/2023 at 13:13 Approved by: Jase Ross M.D. on 10/20/2023 at 13:14
== END ==
PROVIDERS: PCP Family Medicine; Referring Provider Urology; Visit Provider Urology
DX: Z01.818 Encounter for other preprocedural examination (principal); N20.0 Calculus of kidney; R31.0 Gross hematuria; R30.0 Dysuria; Z87.442 Personal history of urinary calculi; Z96.0 Presence of urogenital implants
CPT/HCPCS: 74018; 81001; 87086; 99214

== ENCOUNTER → 2023-10-20 11:13 | Outpatient (CLI) | payer MEDICARE, SELFPAY ==
[2023-09-07 09:19] VITALS: BMI 26.9
[2023-10-20 11:58] LABS: Appearance Urine UA CLOUDY; Bilirubin Urine UA NEGATIVE (NEGATIVE); Color Urine UA ORANGE; Glucose Urine UA NEGATIVE (Negative); Ketones Urine UA NEGATIVE (NEGATIVE); Leukocyte Esterase Urine UA 2+ (NEGATIVE); Nitrite Urine UA POSITIVE (Negative); Occult Blood Urine UA 3+ (Negative); Protein Urine UA 3+ (Negative); Specific Gravity Urine UA 1.025 (1.000-1.035); Urobilinogen Urine UA 0.2 E.U./dL (0.2)
[2023-10-20 11:59] LABS: pH Urine UA 6.5 (4.5-8.0)
[2023-10-20 12:00] LABS: Urine Volume 10mL (spun)
[2023-10-20 12:03] LABS: Bacteria Urine Many (>30); Culture Indicated Urine Specimen Cultured; RBC Urine >100/HPF (0-5/HPF); Squamous Epithelial Cell Urine 1-5 /HPF (0-5/HPF); WBC Urine 30-100/HPF (0-5/HPF)
== END ==
PROVIDERS: PCP Family Medicine; Visit Provider Urology
DX: R39.9 Unspecified symptoms and signs involving the genitourinary system (principal)
CPT/HCPCS: 81001; 87086

== ENCOUNTER 2023-10-24 09:10 | Day surgery (SDC) | payer MEDICARE, SELFPAY ==
[2023-09-07 09:19] VITALS: BMI 26.9
[2023-10-24] VITALS (10 sets, daily range): BP systolic 142–160; BP diastolic 80–103; PULSE 54–77; RESP 12–20; TEMP 36.4–36.7; O2SAT 98–100; BMI 24.0
[2023-10-24] MEDS: LACTATED RINGERS 1,000 ML 21 ML IV (09:21)
[2023-10-24] MEDS: SCOPOLAMINE 1 PATCH TOP (10:36)
--- NOTE | 2023-10-24 11:10 | PM.PREOP ---
Pre-operative Note COVID-19 COVID-19 status: Not tested Interval Note History & Physical reviewed/Exam performed by Physician: Yes Changes to H&P: No
[2023-10-24] MEDS: CEFAZOLIN 2 GM/100 ML PREMIX 100 ML IV (11:58)
--- NOTE | 2023-10-24 12:23 | SUR.OPER ---
Lithotomy on padded OR bed, head on pillow, arms secured on padded arm boards at <90 degrees abduction. Legs secured in padded yellow fins stirrups.
--- NOTE | 2023-10-24 13:31 | PM.OP.1 ---
Procedure & Clinicians Procedure: Left ureteroscopy with laser lithotripsy and basket extraction of stone fragments, left stent removal and left stent placement Same procedure as scheduled: Yes Indications: This 48-year-old female originally presented with a very large left-sided stone. This was treated by lithotripsy at all but a few fragments passed. These seemed to be at the UPJ and on recent visit it appeared to be growing again underwent lithotripsy and a portion of the stone it passed but there is a another portion which seemed to be a core fragment that had persisted previously remained. Discussed options with the patient and was decided that ureteroscopy with the above amendments would be the best way to clear her stone. She presents this time for that procedure. Surgeon: Naren Walker Anesthesia Type: General Operative Notes Findings: Findings: External genitalia appeared relatively normal and well estrogenized. Urethral meatus is normal urethra is normal along its length. In the left ureteral orifice there was a stent with a moderate amount of mucinous material covering it. There was bullous edema around the orifice. The right ureteral orifice in normal position with clear efflux. The remainder of the bladder was normal. At ureteroscopy the stone was noted to be just proximal to the UPJ consistent with the imaging findings. The renal pelvis had some bullous edema from the stent being in place and some mucinous material. Otherwise there was no abnormality at the end of the procedure all of the larger fragments had been basketed out what there were innumerable smaller fragments as a result of the laser lithotripsy. Therefore a stent was replaced to facilitate passage of these fragments. The ureter along its length exhibited some bullous edema and findings consistent with the stent being in place otherwise there was no abnormality. At the end of the procedure a 7 Jamaican by multi length ureteral stent was left in the left collecting system without a string. No other abnormalities were notable findings were observed. Closure Type: not applicable Specimen(s): other (Stone fragments) Prosthetic devices, grafts, tissues, transplants, or devices: 7 [place] by multi length left ureteral stent without a string Estimated Blood Loss (mL): 0 Blood products transfused: none Procedure in detail: Procedure in detail: After informed consent was obtained, the patient was identified and brought to the operating room where she was placed in a supine position on the operative table and anesthesia was induced and maintained. Ensuring an adequate level of anesthesia the patient was transitioned to the lithotomy position where she was prepped, draped, prepared for Transurethral procedure. After prepping, draping, ensuring an adequate level of anesthesia, time-out and administration of antibiotics a 22 Jamaican cystoscope was passed through the urethra and into the bladder where cystoscopy was performed. The grasping forceps was then put in place the end of the stent grasped and was brought out the urethral meatus. A hybrid guidewire was then passed up through the stent and into the collecting system and the stent was backed out. The wire was left in good position and reserved as a safety wire. The cystoscope was reinserted and a 2nd wire passed up into the left collecting system to be used as a working wire. The bladder was drained the scope was removed and over the working wire a ureteral access sheath was easily passed up and into the left ureter. Through the ureteral access sheath the flexible scope was then passed up and into the renal pelvis where sequential nephroscopy was performed. The stone was identified and appeared adherent at the UPJ actually just proximal in the renal pelvis. Was adherent and with the scope a portion of it was freed which was the larger portion. Laser fiber was inserted and this was fragmented. The laser fiber after the laser was put on standby was removed and reserved. Basket was inserted and fragments grasped there was a larger fragment that would not pass through the ureteral access sheath it was dropped in the renal pelvis the basket was again removed in the laser fiber inserted and this fragment was further fragmented. Basket was once again reinserted after the laser was placed on standby and the laser fiber removed and the remainder of the free-floating fragments were removed. There were 2 stones still adherent at the UPJ these were each basketed in turn and removed. Sequential nephroscopy was once again performed and no large fragments appeared to remain. There were innumerable small fragments and therefore it was elected to replace the stent. With the renal pelvis cleared of larger fragments and no other abnormality the scope and ureteral access sheath were backed out in the ureter visualized along its entire length. The safety wire was then backloaded through the cystoscope and the cystoscope inserted. A new stent was then passed over the wire position of the renal pelvis under fluoroscopic visualization of the bladder under direct vision the nylon harness was removed the stent was left in good position. The bladder was drained the scope was removed the patient was awakened having tolerated the procedure well to be transferred to the postanesthesia care unit for recovery. After recovery the patient is to be discharged to home to follow up my office likely next week with a KUB for stent removal. Complications: none Post-operative Condition: stable Disposition: PACU Plan for aftercare: Discharged to home after fully awake and alert follow-up my office next week with KUB for stent removal.
[2023-10-24] MEDS: HYDROMORPHONE 1 MG INJ IV ×2 (13:46→13:56)
[2023-10-24] MEDS: TRAMADOL 50 MG TABLET PO (13:52)
[2023-10-24] MEDS: ACETAMINOPHEN IV 1,000 MG/100 ML VIAL 400 MG IV (13:52)
[2023-10-24] MEDS: OXYBUTYNIN 5 MG TABLET PO (14:08)
[2023-10-24] MEDS: PHENAZOPYRIDINE 100 MG TABLET 200 MG PO (14:08)
[2023-10-31 21:48] LABS: Ca oxalate monohydr 70 % (.); Hydroxyapatite 30 % (.); Size 3x5 mm (.)
== END 2023-10-24 14:30 | disposition home or self-care (01) ==
PROVIDERS: PCP Family Medicine; Referring Provider Urology; Visit Provider Urology
PROC: (CPT 52356; principal; 2023-10-24 11:00)
DX: N20.0 Calculus of kidney (principal); R33.9 Retention of urine, unspecified
CPT/HCPCS: 52356; 76000; 82365; J0136; J0690; J1100; J1170; J1200; J1885; J2405; J2704

== ENCOUNTER → 2023-11-03 11:49 | Outpatient (CLI) | payer MEDICARE, SELFPAY ==
[2023-09-07 09:19] VITALS: BMI 26.9
--- NOTE | 2023-11-03 11:52 | DI.RAD.S_ITS ---
PROCEDURE: XR KUB INDICATIONS: kidney stones, stent placement TECHNIQUE: One view of the abdomen acquired. COMPARISON: [facility], CR, XR KUB, 10/20/2023, 10:35. FINDINGS: Surgical changes and devices: Left double-J ureteral stent. Bowel: Bowel gas pattern is normal. Soft tissues: No suspicious abdominal calcifications. No radiographic evidence of nephrolithiasis. Previously seen 7 mm calcification adjacent to the left ureteral stent is not seen. Visualized solid organ contours appear normal in size. Bones: No suspicious bony lesions. IMPRESSION: Left double-J ureteral stent. No radiographic evidence of nephrolithiasis. Previously seen 7 mm calcification adjacent to the left ureteral stent is not seen. Dictated by: Amita Koo M.D. on 11/03/2023 at 15:18 Approved by: Amita Koo M.D. on 11/03/2023 at 15:19
== END ==
PROVIDERS: PCP Family Medicine; Referring Provider Urology; Visit Provider Urology
DX: E83.59 Other disorders of calcium metabolism (principal); N20.0 Calculus of kidney; R33.9 Retention of urine, unspecified; R39.9 Unspecified symptoms and signs involving the genitourinary system; Z87.442 Personal history of urinary calculi; Z96.0 Presence of urogenital implants
CPT/HCPCS: 52310; 74018; 81002; 87086

== ENCOUNTER → 2023-11-17 11:23 | Outpatient (CLI) | payer MEDICARE, SELFPAY ==
[2023-09-07 09:19] VITALS: BMI 26.9
[2023-11-17 13:07] LABS: Calcium 9.7 mg/dL (8.4-10.2); Uric Acid 4.8 mg/dL (2.5-6.2)
[2023-11-19 12:53] LABS: Calcium 9.5 mg/dL (8.7-10.2); Parathyroid Hormone, Intact 43 pg/mL (15-65)
== END ==
PROVIDERS: PCP Family Medicine; Referring Provider Urology; Visit Provider Urology
DX: R33.9 Retention of urine, unspecified (principal); E83.59 Other disorders of calcium metabolism; Z98.890 Other specified postprocedural states; Z87.442 Personal history of urinary calculi
CPT/HCPCS: 36415; 81002; 82310; 83970; 84100; 84550; 99213

== ENCOUNTER → 2024-02-28 08:18 | Outpatient (CLI) | payer MEDICARE, SELFPAY ==
[2023-09-07 09:19] VITALS: BMI 26.9
--- NOTE | 2024-02-28 08:19 | DI.RAD.S_ITS ---
PROCEDURE: XR KUB INDICATIONS: History of kidney stones rule out recurrence TECHNIQUE: One view of the abdomen acquired. COMPARISON: [facility], CR, XR KUB, 11/03/2023, 11:58. FINDINGS: Surgical changes and devices: Interval removal of left ureterovesicular stent. Bowel: Bowel gas pattern is normal. Soft tissues: No suspicious abdominal calcifications. Visualized solid organ contours appear normal in size. Bones: No suspicious bony lesions. IMPRESSION: No calcifications overlying the renal shadows or the expected course of the ureters. Dictated by: Malini Dangelo M.D. on 02/28/2024 at 9:26 Approved by: Malini Dangelo M.D. on 02/28/2024 at 9:26
[2024-02-28 09:40] LABS: BUN Creatinine Ratio 26.1 (6-22); Blood Urea Nitrogen 18 mg/dL (7-17); Calcium 9.5 mg/dL (8.4-10.2); Carbon Dioxide 25 mmol/L (22-32); Chloride 108 mmol/L (98-107); Estimated Glomerular Filt Rate > 60 mL/min (>60); Glucose 93 mg/dL (70-100); HEMOLYSIS < 15 (0-50); Potassium 4.2 mmol/L (3.4-5.1); Sodium 139 mmol/L (137-145)
== END ==
PROVIDERS: PCP Family Medicine; Referring Provider Urology; Visit Provider Urology
DX: E83.59 Other disorders of calcium metabolism (principal); Z87.442 Personal history of urinary calculi; Z96.0 Presence of urogenital implants
CPT/HCPCS: 36415; 74018; 80048

== ENCOUNTER → 2024-04-18 08:34 | Outpatient (CLI) | payer MEDICARE, SELFPAY ==
[2023-09-07 09:19] VITALS: BMI 26.9
[2024-04-18 15:03] LABS: Follicle Stimulating Hormone 63.1 mIU/mL
[2024-04-18 15:19] LABS: Estradiol, Total 27.8 pg/mL
== END ==
PROVIDERS: PCP Family Medicine; Referring Provider Obstetrics & Gynecology; Visit Provider Obstetrics & Gynecology
DX: N95.1 Menopausal and female climacteric states (principal)
CPT/HCPCS: 36415; 82670; 83001

== ENCOUNTER → 2024-08-29 10:18 | Outpatient (CLI) | payer MEDICARE, SELFPAY ==
[2023-09-07 09:19] VITALS: BMI 26.9
--- NOTE | 2024-08-29 10:19 | DI.RAD.S_ITS ---
PROCEDURE: XR KUB INDICATIONS: History of kidney stones TECHNIQUE: One view of the abdomen acquired. COMPARISON: [facility], CR, XR KUB, 02/28/2024, 8:18. [facility], CR, XR KUB, 11/03/2023, 11:58. FINDINGS: Surgical changes and devices: None. Bowel: Bowel gas pattern is normal. Soft tissues: No suspicious abdominal calcifications. Visualized solid organ contours appear normal in size. Several previously present bilateral pelvic phleboliths are again seen, stable over time. A double pigtail left ureteral catheter present in October of last year has been removed. Bones: No suspicious bony lesions. IMPRESSION: No definite urinary tract stone seen. Double pigtail catheter removed on the left. Scattered bilateral pelvic phleboliths chronically present. Dictated by: Orlando Huitron M.D. on 08/29/2024 at 15:47 Approved by: Orlando Huitron M.D. on 08/29/2024 at 15:48
== END ==
PROVIDERS: PCP Family Medicine; Referring Provider Urology; Visit Provider Urology
DX: Z87.442 Personal history of urinary calculi (principal); Z09 Encounter for follow-up examination after completed treatment for conditions other than malignant neoplasm
CPT/HCPCS: 74018

== ENCOUNTER → 2024-08-30 08:16 | Outpatient (CLI) | payer MEDICARE, SELFPAY ==
[2023-09-07 09:19] VITALS: BMI 26.9
[2024-08-30 09:03] LABS: BUN Creatinine Ratio 23.3 (6-22); Blood Urea Nitrogen 17 mg/dL (7-17); Calcium 9.5 mg/dL (8.4-10.2); Carbon Dioxide 26 mmol/L (22-32); Chloride 104 mmol/L (98-107); Estimated Glomerular Filt Rate > 60 mL/min (>60); Glucose 83 mg/dL (70-100); HEMOLYSIS < 15 (0-50); Sodium 137 mmol/L (137-145)
== END ==
PROVIDERS: PCP Family Medicine; Referring Provider Urology; Visit Provider Urology
DX: E83.59 Other disorders of calcium metabolism (principal); N13.30 Unspecified hydronephrosis
CPT/HCPCS: 36415; 80048

== ENCOUNTER 2024-10-20 22:22 | Emergency (ER) | payer MEDICARE, OTHER, SELFPAY ==
[2023-09-07 09:19] VITALS: BMI 26.9
[2024-10-20 22:29] VITALS: BP 221/112; PULSE 112; RESP 20; TEMP 36.4; O2SAT 100; BMI 26.5
[2024-10-20 22:58] LABS: Add Manual Diff / Slide Review NO; Basophils Absolute Auto 200 /uL (0-100); Basophils Percent Auto 1.1 % (0-2); Eosinophils Absolute Auto 0 /uL (0-450); Eosinophils Percent Auto 0.3 % (2-4); Hematocrit 43.3 % (36-46); Hemoglobin 14.8 g/dL (12.0-16.0); Lymphocytes Absolute Auto 2700 /uL (1100-4500); Lymphocytes Percent Auto 15.7 % (25-40); Mean Corpuscular HGB Conc 34.2 % (30-36); Mean Corpuscular Hemoglobin 30.3 PG (26-34); Mean Corpuscular Volume 88.6 fL (80-100); Monocytes Absolute Auto 700 /uL (0-900); Monocytes Percent Auto 4.1 % (3-14); Neutrophils Absolute Auto 13400 /uL (1500-7000); Neutrophils Percent Auto 78.8 % (50-75); Platelet Count 343 X10^3/uL (150-400); Red Blood Cell Count 4.88 X10^6/uL (4.0-5.2)
[2024-10-20 23:06] LABS: Alanine Aminotransferase 19 IU/L (<35); Albumin 4.9 g/dL (3.5-5.0); Albumin Globulin Ratio 1.5 (1.0-2.8); Alkaline Phosphatase 87 U/L (38-126); Aspartate Aminotransferase 27 IU/L (14-36); BUN Creatinine Ratio 18.5 (6-22); Bilirubin Total 0.5 mg/dL (0.2-1.3); Blood Urea Nitrogen 15 mg/dL (7-17); Calcium 9.8 mg/dL (8.4-10.2); Carbon Dioxide 15 mmol/L (22-32); Chloride 104 mmol/L (98-107); Estimated Glomerular Filt Rate > 60 mL/min (>60); Globulin 3.3 g/dL (1.7-4.1); Glucose 133 mg/dL (70-100); HEMOLYSIS < 15 (0-50); Lipase 97 U/L (23-300); Potassium 3.6 mmol/L (3.4-5.1); Sodium 135 mmol/L (137-145); Total Protein 8.2 g/dL (6.3-8.2)
[2024-10-21] VITALS (7 sets, daily range): BP systolic 140–181; BP diastolic 81–105; PULSE 72–105; O2SAT 98–100
--- NOTE | 2024-10-21 01:51 | ED.ABDPAIN ---
HPI - Abdominal Pain General Chief Complaint: Abdominal Pain Stated Complaint: abd pain getting worse Time Seen by Provider: 10/21/24 01:51 Source: patient Mode of arrival: Ambulatory History of Present Illness HPI narrative: 49-year-old female with a past medical history of uterine cancer status post hysterectomy, chronic back pain fibromyalgia comes into the ED from home for evaluation of left lower quadrant abdominal pain radiates to her back, states it started approximately 5:00 p.m. on 10/20/2024. Worsened over the past hour after that does endorse nausea no vomiting or diarrhea, states that she does have a history of left intra-abdominal hemorrhage secondary to left ovarian rupture that required surgery in 2022. Patient denies any trauma falls denies any blood thinners denies any other symptoms such as headache visual disturbances chest pain shortness of breath fever chills or any other GI/ symptoms at this time. Related Data Home Medications Medication Instructions Recorded Confirmed magnesium chloride 1 tab PO DAILY 05/18/23 08/30/24 vitamin D3 1,250 mcg (50,000 1,250 cap PO DAILY 06/16/23 08/30/24 unit)-vitamin K2 200 mcg capsule Previous Rx's Medication Instructions Recorded estradiol 0.01% (0.1 mg/gram) 0.5 g vaginal DAILY #42.5 grams 04/25/24 vaginal cream (Estrace) estradiol 0.025 mg/24 hr 1 patch topical 2XW #24 patches 08/01/24 semiweekly transdermal patch cephalexin 500 mg capsule 500 mg PO TID 7 days #21 caps 10/21/24 tamsulosin 0.4 mg capsule (Flomax) 0.4 mg PO DAILY 1 week #7 caps 10/21/24 Allergies Allergy/AdvReac Type Severity Reaction Status Date / Time hydrocodone [From Vicodin] Allergy Unknown Agitated Verified 10/20/24 22:29 succinylcholine Allergy Unknown Verified 10/20/24 22:29 morphine AdvReac Severe Muscle Pain Verified 10/20/24 22:29 Sulfa (Sulfonamide AdvReac Intermediate Rash Verified 10/20/24 22:29 Antibiotics) scopolamine AdvReac urinary Verified 10/20/24 22:29 retention Review of Systems Review of Systems Narrative: General: Denies fever, chills, weight loss HEENT: Denies headache, eye drainage, eye irritation, head trauma, sore throat, voice change Cardiovascular: Denies any chest pain, palpitations, shortness of breath, tachycardia Respiratory: Denies any shortness of breath, cough, wheeze, stridor GI/: Positive abdominal pain, nausea, denies vomiting, diarrhea, bright red blood per rectum, melanotic stools, urinary frequency, urinary retention, dysuria, hematuria MSK: Denies any joint pain, muscle pains, swelling Skin: Denies any rashes, lesions, discoloration Neuro: Denies any headache, lightheadedness, dizziness, fainting, weakness Psych: Denies SI/HI Patient History Medical History (Updated 10/21/24 @ 04:34 by Adalberto Nation DO) History of kidney injury Asymptomatic microscopic hematuria History of hydronephrosis Easy bruisability Neuropathy S/P extracorporeal shock wave therapy (08/29/23) Uterine cancer Hypercalciuria Calcium oxalate calculus Multiple sclerosis Urinary retention S/P extracorporeal shock wave therapy (01/31/23) Hydronephrosis, left Left renal stone Hx of nephrolithotomy with removal of calculi Hx of neurological disease Hx of migraine headaches History of kidney stones History of depression Hx of cancer of uterus Anxiety and depression (~1997) Restless leg syndrome (~2011) Chronic back pain (~2000) Recurrent sinusitis Painful menstrual periods (~2011) Menorrhagia (~2011) Kidney stones (~2008) Fibromyalgia (~2011) Migraine headache without aura (~1998) Surgical History Hx of exploratory laparotomy (04/04/23) Anesthesia History of lithotripsy [place] teeth extracted Family History Father Prediabetes Hypertension Hyperlipidemia Grandfather Cancer Hypertension Hyperlipidemia Stroke Grandmother Cancer Hyperlipidemia Hypertension Stroke Grandmother Bladder cancer Breast cancer Social History marital status: number of children: 2 household members: none and other Smoking Status: Never smoker alcohol intake: never caffeine: No Type(s) of exercise: walking frequency: daily duration: > 90 minutes/day Smoking Status: Never smoker Exam Narrative Exam Narrative: General: Cooperative, comfortable, well-developed, not in acute distress HEENT: Normocephalic, atraumatic, PERRLA, normal sclera, eyelids normal, Neck: Active full range of motion, atraumatic Chest: Normal to inspection, negative crepitus, no overlying erythema ecchymosis Respiratory: Normal respiratory effort, not in acute respiratory distress, clear to auscultation bilaterally negative cough, wheeze, tachypnea, rhonchi, rales Cardiology: Regular rate rhythm negative gallop, murmur, rubs GI/: Normal to inspection, soft, nonrigid, moderate tenderness to palpation lower abdomen worse to the left lower quadrant, exam deferred MSK: Full range of active range of motion of all 4 extremities, atraumatic Skin: No rashes lesions noted Neuro: Alert awake oriented x3, moves all 4 extremities spontaneously, cranial nerves intact, able to answer all questions appropriately follows commands appropriately Psych: Cooperative, negative suicidal or homicidal ideations Initial Vital Signs Initial Vital Signs: Vital Signs Temperature 97.6 F 10/20/24 22:29 Pulse Rate 112 H 10/20/24 22:29 Respiratory Rate 20 10/20/24 22:29 Blood Pressure 221/112 H 10/20/24 22:29 Pulse Oximetry 100 10/20/24 22:29 Oxygen Delivery Method Room Air 10/20/24 22:29 Course Orders Ordered: ED Orders 10/20/24 22:46 Complete Blood Count AUTO DIFF Stat Comprehensive Metabolic Panel Stat Lipase Stat 10/21/24 01:54 Urinalysis and Microscopic Stat 10/21/24 01:56 CT abdomen pelvis w con Stat MAG [Magnesium] Stat Ondansetron HCl (Ondansetron 4 Mg/2 Ml Inj) 4 mg IV NOW PRN PRN Reason: Nausea And Vomiting Ondansetron HCl (Ondansetron 4 Mg Odt) 4 mg PO NOW PRN PRN Reason: Nausea And Vomiting Discontinued Medications Hydromorphone HCl (Hydromorphone 1 Mg Inj) 1 mg IV NOW ONE Stop: 10/21/24 01:58 Last Admin: 10/21/24 02:12 Dose: 1 mg Documented By: AB Hydromorphone HCl (Hydromorphone 1 Mg Inj) 1 mg IV NOW ONE Stop: 10/21/24 02:45 Last Admin: 10/21/24 02:50 Dose: 1 mg Documented By: AB Sodium Chloride (Normal Saline 0.9%) 1,000 mls @ 1,000 mls/hr IV BOLUS ONE Stop: 10/21/24 02:55 Last Infusion: 10/21/24 02:50 Dose: Infused Documented By: Admin: 10/21/24 02:11 Dose: 1,000 mls/hr Documented By: Ondansetron HCl (Ondansetron 4 Mg/2 Ml Inj) 4 mg IV NOW ONE Stop: 10/21/24 01:57 Last Admin: 10/21/24 02:12 Dose: 4 mg Documented By: Vital Signs Vital signs: Vital Signs - 8 hr 10/20/24 22:29 10/21/24 01:59 10/21/24 02:00 Temperature 97.6 F Pulse Rate 112 H 101 H Respiratory Rate 20 Blood Pressure 221/112 H 181/105 H Pulse Oximetry 100 100 Oxygen Delivery Method Room Air 10/21/24 02:00 10/21/24 02:30 10/21/24 03:00 Temperature Pulse Rate 105 H 72 85 Respiratory Rate Blood Pressure Pulse Oximetry 100 100 99 Oxygen Delivery Method Room Air 10/21/24 03:00 10/21/24 03:22 10/21/24 03:22 Temperature Pulse Rate 82 Respiratory Rate Blood Pressure 151/95 H 180/88 H Pulse Oximetry 100 Oxygen Delivery Method 10/21/24 03:30 10/21/24 03:30 Temperature Pulse Rate 79 Respiratory Rate Blood Pressure 165/81 H Pulse Oximetry 98 Oxygen Delivery Method Room Air MDM - Abdominal Pain Differential Diagnosis Differential diagnosis: Likely abdominal pain, constipation, diverticulitis, gastroenteritis, pancreatitis, small bowel obstruction and other (Electrolyte abnormality) Lab Data 10/20/24 22:46 10/20/24 22:46 Labs: Lab Results 10/20/24 10/21/24 Range/Units 22:46 01:54 WBC 17.0 H (4.5-11.0) X10^3/uL RBC 4.88 (4.0-5.2) X10^6/uL Hgb 14.8 (12.0-16.0) g/dL Hct 43.3 (36-46) % MCV 88.6 (80-100) fL MCH 30.3 (26-34) PG MCHC 34.2 (30-36) % RDW 13.0 (11.6-14.8) % Plt Count 343 (150-400) X10^3/uL Neut % (Auto) 78.8 H (50-75) % Lymph % (Auto) 15.7 L (25-40) % Harvey % (Auto) 4.1 (3-14) % Eos % (Auto) 0.3 L (2-4) % Baso % (Auto) 1.1 (0-2) % Neut # (Auto) 33441 H (1030-4275) /uL Lymph # (Auto) 2700 (5519-7880) /uL Harvey # (Auto) 700 (0-900) /uL Eos # (Auto) 0 (0-450) /uL Baso # (Auto) 200 H (0-100) /uL Sodium 135 L (137-145) mmol/L Potassium 3.6 (3.4-5.1) mmol/L Chloride 104 (98-107) mmol/L Carbon Dioxide 15 L (22-32) mmol/L BUN 15 (7-17) mg/dL Creatinine 0.81 (0.52-1.04) mg/dL Estimated GFR > 60 (>60) mL/min BUN/Creatinine Ratio 18.5 (6-22) Glucose 133 H (70-100) mg/dL Calcium 9.8 (8.4-10.2) mg/dL Magnesium 1.8 (1.6-2.3) mg/dL Total Bilirubin 0.5 (0.2-1.3) mg/dL AST 27 (14-36) IU/L ALT 19 (<35) IU/L Alkaline Phosphatase 87 (38-126) U/L Total Protein 8.2 (6.3-8.2) g/dL Albumin 4.9 (3.5-5.0) g/dL Globulin 3.3 (1.7-4.1) g/dL Albumin/Globulin Ratio 1.5 (1.0-2.8) Lipase 97 (23-300) U/L Urine Color Yellow Urine Appearance Clear Urine pH 6.5 (4.5-8.0) Ur Specific [place] 1.010 (1.000-1.035) Urine Protein 2+ H (Negative) Urine Glucose (UA) Negative (Negative) g/dL Urine Ketones 1+ H (NEGATIVE) Urine Occult Blood 1+ H (Negative) Urine Nitrate Negative (Negative) Urine Bilirubin Negative (NEGATIVE) Urine Urobilinogen 0.2 (0.2) E.U./dL Ur Leukocyte Esterase Negative (NEGATIVE) Urine RBC 0-1/hpf D (0-5/HPF) Urine WBC None seen (0-5/HPF) Ur Squamous Epith Cells 0-1 /hpf (0-5/HPF) Urine Bacteria None seen (None) Ur Culture Indicated? Cult not indicated Vol Urine Centrifuged 10ml (spun) Imaging Data CT scan - abdomen/pelvis: Radiologist's Impression: Preliminary read showing left hydronephrosis with perinephric periureteral inflammatory changes secondary to obstructing mid distal ureteral calculus measuring 4 mm, no free fluid within the pelvis bladder unremarkable MDM Narrative Medical decision making narrative: [age] year female with a history of uterine cancer status post hysterectomy, fibromyalgia, chronic low back pain presents for left lower quadrant abdominal pain started abruptly at around 5:00 p.m. yesterday states it has gotten worsen feels like it is wrapping around to her back, she denies any trauma or falls not on any blood thinners, she states this is similar to when she had an ectopic rupture that required emergent surgery. She denies any other symptoms at this time. Patient's lab work notable for a leukocytosis of 17 however hemoglobin stable at 14.8 Chem panel unremarkable patient did have CT scan and urinalysis performed here in the emergency department. CT scan showing 4 mm obstructing mid distal ureter with hydronephrosis, however patient without KARIN fever leukocytosis patient with significantly improved symptoms after administration of medication here. Patient states she follows with Dr. Walker of Urology, informed her that she will be sent home with analgesics, Flomax, antibiotics and antinausea medication, she states that the only thing that has helped in the past and that she can tolerate for pain as tramadol. She was given strict return precautions she verbalized understanding of this and agrees to being discharged home with outpatient follow up Discharge Plan Departure Patient Disposition: Home Clinical Impression: Urolithiasis Instructions: DI for Kidney Stones Prescriptions: New tamsulosin [Flomax] 0.4 mg capsule 0.4 mg PO DAILY 7 Days Qty: 7 0RF cephalexin 500 mg capsule 500 mg PO TID 7 Days Qty: 21 0RF No Action estradiol [Estrace] 0.01 % (0.1 mg/gram) cream 0.5 g vaginal DAILY Qty: 42.5 3RF Rx Instructions: 0.5 gm in vagina and small amount to opening every night for 14 nights and then twice a week estradiol 0.025 mg/24 hr patch semiweekly 1 patch topical 2XW Qty: 24 3RF magnesium chloride 1 tab PO DAILY vitamin D3-vitamin K2 1,250-200 mcg capsule 1,250 cap PO DAILY Referrals: Jeffy Bryan DO [Primary Care Provider] - Stand Alone Forms: Patient Portal/API/Survey
--- NOTE | 2024-10-21 01:56 | DI.CT.S_ITS ---
PROCEDURE: CT ABDOMEN PELVIS W CON INDICATIONS: Left lower quadrant abdominal pain TECHNIQUE: After the administration of intravenous contrast, axial sections acquired from the lung bases to the pubic symphysis. Coronal and sagittal reformats were performed. For radiation dose reduction, the following was used: automated exposure control, adjustment of mA and/or kV according to patient size. COMPARISON: [facility], CT, CT ABDOMEN PELVIS W CON, 04/14/2023, 19:40. [facility], CT, CT ABDOMEN WO CON, 07/28/2023, 12:46. FINDINGS: Image quality: Diagnostic Lower chest: Basal lungs are unremarkable. Normal heart size. Small hiatal hernia. Trace pericardial effusion. Liver: Unremarkable Gallbladder and biliary system: Unremarkable, nondilated Pancreas: No ductal dilation Spleen: Nonenlarged Adrenals: No discrete nodules Kidneys: Severe left hydronephrosis. There is a 3-4 mm stone in the left distal ureter. There is surrounding moderate degree of fluid and edema, with mild urothelial thickening. No solid renal mass. No right hydronephrosis. Delayed left nephrogram is seen. Vessels and lymph nodes: The main portal vein is patent. No abdominal aortic aneurysm or pathologic lymphadenopathy by size criteria Bowel and peritoneum: No small bowel obstruction. No pathologic ascites. Body wall: Unremarkable Pelvis: Bladder is unremarkable. Uterus is absent Bones: No acute or suspicious osseous finding. IMPRESSION: Severe left hydronephrosis and delayed nephrogram indicating obstructive uropathy. 3-4 mm stone is seen in the left distal ureter. Delayed nephrogram is seen with moderate surrounding fluid, suggestive of obstructive uropathy and forniceal rupture No significant changes from the preliminary report. Other findings above. Dictated by: Jase Ross M.D. on 10/21/2024 at 8:28 Approved by: Jase Ross M.D. on 10/21/2024 at 8:31
[2024-10-21 02:04] LABS: Appearance Urine UA CLEAR; Bilirubin Urine UA NEGATIVE (NEGATIVE); Color Urine UA YELLOW; Glucose Urine UA NEGATIVE (Negative); Ketones Urine UA 1+ (NEGATIVE); Leukocyte Esterase Urine UA NEGATIVE (NEGATIVE); Nitrite Urine UA NEGATIVE (Negative); Occult Blood Urine UA 1+ (Negative); Protein Urine UA 2+ (Negative); Urobilinogen Urine UA 0.2 E.U./dL (0.2)
[2024-10-21] MEDS: SODIUM CHLORIDE 0.9% 1,000 ML 1000 ML IV (02:11)
[2024-10-21] MEDS: ONDANSETRON 4 MG/2 ML INJ IV (02:12)
[2024-10-21] MEDS: HYDROMORPHONE 1 MG INJ IV ×2 (02:12→02:50)
[2024-10-21 02:15] LABS: pH Urine UA 6.5 (4.5-8.0)
[2024-10-21 02:20] LABS: Magnesium 1.8 mg/dL (1.6-2.3)
[2024-10-21 02:25] LABS: Bacteria Urine None Seen; Culture Indicated Urine Cult Not Indicated; RBC Urine 0-1/HPF (0-5/HPF); Squamous Epithelial Cell Urine 0-1 /HPF (0-5/HPF); Urine Volume 10mL (spun); WBC Urine None Seen (0-5/HPF)
[2024-10-21] MEDS: cephALEXin 250 MG CAPSULE 500 MG PO (04:52)
[2024-10-21] MEDS: ONDANSETRON 4 MG ODT PREPACK 1 BOTTLE MISC (04:52)
[2024-10-21] MEDS: TAMSULOSIN 0.4 MG CAPSULE PO (04:52)
[2024-10-21] MEDS: TRAMADOL 50 MG PREPACK 1 BOTTLE MISC (04:53)
== END 2024-10-21 04:55 | disposition home or self-care (01) ==
PROVIDERS: Emergency Provider Student in an Organized Health Care Education/Training Program; PCP Family Medicine
DX: N20.1 Calculus of ureter (principal); Z85.42 Personal history of malignant neoplasm of other parts of uterus; Z90.710 Acquired absence of both cervix and uterus
CPT/HCPCS: 36415; 74177; 80053; 81001; 83690; 83735; 85025; 96361; 96374; 96375; 96376; 99284; J1171; J2405; Q9967

== ENCOUNTER → 2024-10-31 07:13 | Outpatient (CLI) | payer MEDICARE, SELFPAY ==
[2023-09-07 09:19] VITALS: BMI 26.9
--- NOTE | 2024-10-31 07:14 | DI.RAD.S_ITS ---
PROCEDURE: XR KUB INDICATIONS: Left ureteral calculus follow-up TECHNIQUE: One view of the abdomen acquired. COMPARISON: [facility], CR, XR KUB, 08/29/2024, 10:24. FINDINGS: Stool gas pattern: Normal-no evidence of ileus or obstruction. No free intraperitoneal or extraperitoneal air. No gross evidence of ascites Soft tissues: No abnormal calcifications. No soft tissue masses. Organs: 3 small calcifications in the left true pelvis range up to 4 millimeters. There are 5 small calcifications in the right true pelvis ranging up to 5 millimeters. They are unchanged from the previous exam. Most these that phleboliths although 1 or more could represent ureteral calculi. IMPRESSION: Pelvic calcifications. One or more could represent a distal ureteral calculus. For precise imaging diagnosis, suggest CT Dictated by: Champ Charles M.D. on 10/31/2024 at 11:59 Approved by: Champ Charles M.D. on 10/31/2024 at 12:00
== END ==
PROVIDERS: PCP Family Medicine; Referring Provider Urology; Visit Provider Urology
DX: N20.1 Calculus of ureter (principal)
CPT/HCPCS: 74018

== ENCOUNTER → 2024-11-08 06:22 | Outpatient (CLI) | payer MEDICARE, SELFPAY ==
[2023-09-07 09:19] VITALS: BMI 26.9
--- NOTE | 2024-11-08 06:24 | DI.RAD.S_ITS ---
PROCEDURE: XR KUB INDICATIONS: Left ureteral calculus TECHNIQUE: One view of the abdomen acquired. COMPARISON: [facility], CR, XR KUB, 10/31/2024, 7:27. FINDINGS: Surgical changes and devices: None. Bowel: Bowel gas pattern is normal. Mildly increased quantity of solid stool. Soft tissues: Several pelvic calcifications are again noted. Several demonstrate lucent centers suggesting phleboliths. Left renal shadow is not well seen and resolution of hydronephrosis cannot be confirmed. Bones: No suspicious bony lesions. IMPRESSION: Similar pattern of pelvic calcifications, phleboliths versus urinary versus bowel contents. For confirmation of hydronephrosis, CT imaging is suggested. Dictated by: Lesa Sánchez M.D. on 11/08/2024 at 14:44 Approved by: Lesa Sánchez M.D. on 11/08/2024 at 14:47
== END ==
PROVIDERS: PCP Family Medicine; Referring Provider Urology; Visit Provider Urology
DX: N20.1 Calculus of ureter (principal)
CPT/HCPCS: 74018

== ENCOUNTER → 2024-11-08 08:00 | Outpatient (CLI) | payer MEDICARE, SELFPAY ==
[2023-09-07 09:19] VITALS: BMI 26.9
== END ==
PROVIDERS: PCP Family Medicine; Visit Provider Urology
DX: N20.1 Calculus of ureter (principal)
CPT/HCPCS: 74018; 82365

== ENCOUNTER → 2024-11-29 09:04 | Outpatient (CLI) | payer MEDICARE, OTHER, SELFPAY ==
[2023-09-07 09:19] VITALS: BMI 26.9
[2024-11-29 09:47] LABS: Calcium 9.9 mg/dL (8.4-10.2)
[2024-11-30 07:09] LABS: Calcium 9.5 mg/dL (8.7-10.2); Parathyroid Hormone, Intact 46 pg/mL (15-65)
== END ==
PROVIDERS: PCP Family Medicine; Referring Provider Urology; Visit Provider Urology
DX: R10.9 Unspecified abdominal pain (principal); N20.1 Calculus of ureter; E83.59 Other disorders of calcium metabolism; Z87.448 Personal history of other diseases of urinary system
CPT/HCPCS: 36415; 81002; 82310; 83970; 84100; 84550; 99213

== ENCOUNTER 2025-06-04 13:54 | Day surgery (SDC) | payer MEDICARE, OTHER, SELFPAY ==
[2023-09-07 09:19] VITALS: BMI 26.9
[2025-05-28 11:55] VITALS: BMI 26.9
[2025-06-04 14:54] VITALS: BMI 26.9
[2025-06-04] MEDS: ACETAMINOPHEN 325 MG TABLET 975 MG PO (15:07)
[2025-06-04] MEDS: LACTATED RINGERS 1,000 ML 42 ML IV (15:08)
[2025-06-04] MEDS: SCOPOLAMINE 1 PATCH TOP (15:08)
[2025-06-04 15:12] VITALS: BP 171/102; PULSE 71; RESP 16; TEMP 36.2; O2SAT 100
--- NOTE | 2025-06-04 15:35 | P.OP.PRE_ITS ---
Pre-operative Note COVID-19 COVID-19 status: Not tested Interval Note History & Physical reviewed/Exam performed by Physician: Yes Changes to H&P: Yes H&P completed within 30 days and has changed as indicated here:: Seema has a lso developed right-sided inguinal pain over the past week or so. On exam there was no palpable bulge although she is tender near the external ring. I recommended that we continue with the planned open left inguinal recurrent hernia repair with mesh today and if the right side continues to bother her and I can feel a bulge or find a hernia defect on ultrasound we could proceed with a robotic right inguinal hernia repair in the future. ASA Class (for procedural sedation): II
--- NOTE | 2025-06-04 16:24 | SUR.OPER ---
Supine on padded OR bed, head on pillow, arms secured on padded arm boards at <90 degrees abduction, legs uncrossed, safety belt at thigh, tape over blanket over lower legs. pillow under knees
--- NOTE | 2025-06-04 17:19 | P.OP_ITS ---
Operative Date/Time/Diagnoses Date of procedure: 06/04/25 Time of procedure: 17:19 Pre-op diagnosis: Recurrent left inguinal hernia Post-op diagnosis: same Procedure & Clinicians Procedure: Open recurrent left inguinal hernia repair with mesh Same procedure(s) as scheduled: Yes Surgeon: Rodolfo Wong Assisted?: No Anesthesia Type: General Operative Notes Findings: Small recurrent left inguinal hernia Applied: none Estimated Blood Loss (mL): 15 Procedure in detail: Preoperative antibiotic was administered. The patient was brought to the [facility] room and placed on the table in supine position general anesthesia was induced. The left groin was prepped and draped in the normal fashion and a time-out was performed. Roughly 10 mL of local anesthetic were injected into the skin and subcutaneous adipose tissue over the left groin. A 6 cm incision was made over the left inguinal canal. Dissection was carried down through the subcutaneous adipose tissue. We exposed the external oblique aponeurosis in the direction of the fibers. Additional local was injected deep to the aponeurosis. A 15 blade scalpel was used to dwight the external oblique aponeurosis. Metzenbaum scissors were used to carefully open the aponeurosis in the direction of the fibers taking care not to injure the underlying ilioinguinal nerve which was well seen and protected. We completely exposed the inguinal canal. The left round ligament was dissected free from the inguinal ligament and floor of the inguinal canal and the external oblique aponeurosis was dissected off of the internal oblique taking care not to injure the hypogastric nerve. The round ligament was injected with Marcaine and then divided sharply with Metzenbaum scissors. We placed a polypropylene mesh over the inguinal canal floor. The mesh was secured with multiple interrupted 3-0 Prolene sutures to the pubic tubercle and shelving edge of the inguinal ligament as well as to the conjoint tendon medially. We tucked to the tails up lateral and superior to the internal ring. We injected some more local into the fatty tissue in the inguinal canal and cord. Finally, we closed the external oblique fascia with a running 3-0 Vicryl suture. Skin was closed with interrupted 3-0 Vicryl dermal sutures and a running 4 Monocryl subcuticular stitch. Steri-Strips and sterile gauze dressing were applied. The patient was awakened and brought to recovery room. Complications: none Post-operative Condition: stable Disposition: PACU
[2025-06-04 17:21] VITALS: BP 161/85; PULSE 72; RESP 18; TEMP 36.6; O2SAT 98
[2025-06-04 17:26] VITALS: BP 162/90; PULSE 77; RESP 16; O2SAT 99
[2025-06-04 17:45] VITALS: BP 161/89; PULSE 93; RESP 22; TEMP 36.5; O2SAT 99
[2025-06-04] MEDS: METOCLOPRAMIDE 10 MG/2 ML INJ IV (17:49)
[2025-06-04] MEDS: hydrOXYzine 50 MG/ML INJ 25 MG IM (17:50)
[2025-06-04] MEDS: ONDANSETRON 4 MG/2 ML INJ IV (17:50)
[2025-06-04 18:08] VITALS: BP 159/89; PULSE 80; RESP 18; TEMP 36.5; O2SAT 97
== END 2025-06-04 18:14 | disposition home or self-care (01) ==
PROVIDERS: PCP Family Medicine; Referring Provider Surgery; Visit Provider Surgery
PROC: (CPT 49520; principal; 2025-06-04 15:15)
DX: K40.91 Unilateral inguinal hernia, without obstruction or gangrene, recurrent (principal)
CPT/HCPCS: 49520; 82962; C1781; J0689; J1100; J1885; J2405; J2704; J2765; J3010; J3410; J7120

== ENCOUNTER → 2025-07-30 08:25 | Outpatient (CLI) | payer MEDICARE, SELFPAY ==
[2023-09-07 09:19] VITALS: BMI 26.9
--- NOTE | 2025-07-30 08:26 | DI.US.S_ITS ---
PROCEDURE: US HERNIA INDICATIONS: possible recurrent LT inguinal hernia TECHNIQUE: Real-time focused scanning was performed of the inguinal region, with image documentation. COMPARISON: None. FINDINGS: Hernia mesh demonstrated in left inguinal region. No evidence of recurrent left inguinal hernia is demonstrated. IMPRESSION: No recurrent left inguinal hernia demonstrated. Dictated by: Honey Reyes MD, PhD on 07/30/2025 at 10:10 Approved by: Honey Reyes MD, PhD on 07/30/2025 at 10:10
== END ==
LOC: US 08:26
PROVIDERS: PCP Family Medicine; Referring Provider Surgery; Visit Provider Surgery
DX: K40.91 Unilateral inguinal hernia, without obstruction or gangrene, recurrent (principal)
CPT/HCPCS: 76705

== ENCOUNTER → 2025-08-07 06:50 | Outpatient (CLI) | payer MEDICARE, SELFPAY ==
[2023-09-07 09:19] VITALS: BMI 26.9
--- NOTE | 2025-08-07 06:53 | DI.CT.S_ITS ---
PROCEDURE: CT ABDOMEN PELVIS W CON INDICATIONS: Left groin pain TECHNIQUE: After the administration of intravenous contrast, axial sections acquired from the lung bases to the pubic symphysis. Coronal and sagittal reformats were performed. For radiation dose reduction, the following was used: automated exposure control, adjustment of mA and/or kV according to patient size. COMPARISON: [facility], US, US HERNIA, 07/30/2025, 8:39. [facility], CT, CT ABDOMEN PELVIS W CON, 10/21/2024, 3:13. [facility], CT, CT ABDOMEN PELVIS W CON, 04/14/2023, 19:40. FINDINGS: Image quality: Diagnostic. Lower Chest: No significant findings. ABDOMEN: Liver: No solid mass. Gallbladder: No radiopaque gallstones or wall thickening. Biliary ducts: No biliary dilation. Pancreas: No ductal dilation. Spleen: Size is within normal limits. Adrenal Glands: No adrenal nodules. Kidneys and Ureters: No hydronephrosis. No solid mass. No complex renal cystic lesion which requires follow up. Note is made of slight asymmetric urothelial contrast enhancement at the left kidney and proximal ureter, an appearance that can represent evidence of left-sided urinary tract infection. Stomach and Bowel: Normal colonic caliber, without significant wall thickening. Peritoneum: No abnormal intraperitoneal fluid. No free air. Ventral Wall: No significant ventral hernia. Abdominal Nodes: No retroperitoneal or mesenteric adenopathy by size criteria. Vessels: Aorta and inferior vena cava are normal in size. PELVIS: Pelvic Organs: Unremarkable. Bladder: No bladder wall thickening, accounting for underdistention. Pelvic Nodes: No enlarged lymph nodes. Miscellaneous: No inguinal hernias are seen. Bones: No aggressive osseous abnormality. IMPRESSION: No hydronephrosis or urinary tract calculus is found but as discussed above there is slight asymmetric urothelial enhancement involving the left kidney and visualized proximal left ureter. This can represent a subtle manifestation of mild urinary tract infection. Please correlate clinically. Dictated by: Orlando Huitron M.D. on 08/07/2025 at 11:35 Approved by: Orlando Huitron M.D. on 08/07/2025 at 11:39
== END ==
PROVIDERS: PCP Family Medicine; Referring Provider Surgery; Visit Provider Surgery
DX: K40.91 Unilateral inguinal hernia, without obstruction or gangrene, recurrent (principal)
CPT/HCPCS: 74177; Q9967